=== PATIENT | female | born 1965 | race Caucasian/White ===

== ENCOUNTER 2024-01-04 06:53 | Inpatient (IN) | payer MEDICARE, MEDICAID, SELFPAY ==
[2024-01-04] VITALS (14 sets, daily range): BP systolic 75–139; BP diastolic 48–64; PULSE 68–80; RESP 15–23; TEMP 35.9–36.4; O2SAT 89–98; BMI 38.0; BMI 36.8
--- NOTE | 2024-01-04 07:41 | XR_ITS ---
FINAL REPORT CLINICAL HISTORY: SOB COMPARISON: 01/04/2024 FINDINGS: The heart and mediastinal structures are stable. There has been interval improvement in the pulmonary opacities, likely secondary to improving pulmonary edema. There is no pneumothorax. The support devices are stable in position. No acute osseous abnormality is identified. IMPRESSION: Interval improvement in the persistent bilateral pulmonary opacities, likely secondary to improving pulmonary edema. Reviewed, Interpreted and Dictated by Faustino Barrow III, MD Transcribed by Kenzie Malcolm Authenticated and [facility]
--- NOTE | 2024-01-04 07:57 | PC.NURSE ---
notified of pt's hypotension.
[2024-01-04 08:14] LABS: Basophils # 0.1 K/mm3 (0-0.2); Basophils % 0.7 % (0.1-2.0); Eosinophils # 0.2 K/mm3 (0.0-0.4); Eosinophils % 1.1 % (0.1-12.0); Hematocrit 45.6 % (37.0-47.0); Hemoglobin 15.3 g/dL (12.2-16.2); Lymphocytes # 0.8 K/mm3 (0.7-4.5); Lymphocytes % 5.2 % (10-50); Mean Corpuscular HGB Conc 33.4 g/dL (31.8-35.4); Mean Corpuscular Hemoglobin 36.9 pg (27.0-31.2); Mean Corpuscular Volume 110.4 fl (81-99); Mean Platelet Volume 9.1 fl (7.4-10.4); Monocytes # 0.4 K/mm3 (0.1-1.0); Monocytes % 2.4 % (1.7-9.3); Neutrophils # 13.6 K/mm3 (1.8-7.8); Neutrophils % 90.6 % (37.0-80.0); Platelet Count 98 K/mm3 (142-424); Red Blood Count 4.13 M/mm3 (4.20-5.40); Red Cell Distribution Width 14.3 % (11.5-17.5)
[2024-01-04 08:18] LABS: MANUAL DIFFERENTIAL MANUAL DIFFERENTIAL (MANUAL DIFF)
[2024-01-04 08:25] LABS: Anion Gap 6.4 mEq/L (5-15); Blood Urea Nitrogen 15 mg/dl (7-17); Calcium 7.8 mg/dl (8.4-10.2); Carbon Dioxide 32 mmol/L (22.0-30.0); Chloride 99 mmol/L (98-107); Creatinine Clearance Estimated 118 mL/min (50-200); Estimated Glomerular Filt Rate 73 ml/min (>60); GFR (African American) 89 ML/MIN (>60); PTT Heparin (inpatient only) 53.6 Seconds (23.6-34.0); Potassium 4.4 mmoL/L (3.5-5.1); Sodium 133 mmol/L (136-145)
[2024-01-04] MEDS: LACTATED RINGERS 1000ML 1,000 ML 999 ML IV (08:29)
[2024-01-04 08:36] LABS: Lactic Acid 1.8 mmol/L (0.7-2.1)
[2024-01-04 08:42] LABS: Glucose 447 mg/dl (74-100)
[2024-01-04 09:05] LABS: NT Pro Brain Natriuretic Pep. 2130 pg/mL (0-125)
[2024-01-04 09:15] LABS: Lymphocytes % 7 % (10-50); Macrocytosis 2+; Monocytes % 2 % (2-9); Neutrophils % 91 % (42-76); Platelet Estimate Moderate Decrease; Total Cells Counted 100
[2024-01-04 09:22] LABS: Lipase 130 U/L (23-300)
--- NOTE | 2024-01-04 09:29 | P.CONPHA_ITS ---
Pharmacy Intervention Comments: Confirmed home medications using external fill history and spoke with pharmacist at [facility] ([facility]bbie) and [facility] ([facility]). Of note, she last filled suboxone 8-2mg 2T PO QD #52 tablets on 10/21/23 at [facility] pharmacy; confirmed with [facility] report.
--- NOTE | 2024-01-04 09:29 | HMH.PHAINT1 ---
Pharmacy Intervention Comments: Confirmed home medications using external fill history and spoke with pharmacist at [facility] (Abbie) and [facility] ([place]). Of note, she last filled suboxone 8-2mg 2T PO QD #52 tablets on 10/21/23 at [facility] pharmacy; confirmed with [facility] report.
--- NOTE | 2024-01-04 09:53 | P.HP_ITS ---
History of Present Illness *Admission Date: 01/04/24 *Reason for visit:: SOB, *History of present illness: Patient is a 58-year-old female with past medical history of diabetes mellitus, active tobacco use, hypertension who presented to hospital due to chest pain/shortness of breath. Patient was found to have elevated troponin, patient was referred to H&H for possible NSTEMI. Patient at time of my evaluation denies active chest pain, she appears to be in shortness of breath. She was started on IV heparin, BiPAP and was sent to the [facility] for further evaluation. Patient's family/son is also at the bedside. Patient denies fever chills nausea vomiting diarrhea constipation. She denies being on diabetic medications. [facility] Disclaimer: The information contained in this section may have been updated after the patient was seen, as this information can be updated by other users. Medical History (Updated 01/04/24 @ 12:55 by Chava Quinn MD) Pneumonia Hypertension Hyperlipidemia Diabetes Smoker Laryngeal carcinoma COPD (chronic obstructive pulmonary disease) Family History (Updated 01/04/24 @ 11:32 by Tahira Barillas RN) Other Family history of cancer Heart disease Social History (Updated 01/04/24 @ 10:38 by Kathya Vogel APRN) Smoking Status: Current every day smoker alcohol intake: never current occupational status: employed Travel in the last 8 weeks: Inside the [place] Review of Systems Review of Systems Review of systems (narrative): as per yourI Meds Home Medications and Allergies Home Medications Medication Instructions Recorded Confirmed Type amoxicillin 250 mg/5 mL oral 500 mg PO TID 01/04/24 01/04/24 History suspension lisinopril 40 mg tablet 40 mg PO DAILY 01/04/24 01/04/24 History promethazine-DM 6.25 mg-15 mg/5 mL 5 ml PO Q6 PRN Cough 01/04/24 01/04/24 History oral syrup buprenorphine 8 mg-naloxone 2 mg 2 tab sublingual DAILY 01/05/24 01/05/24 History sublingual tablet New Prescriptions to Start Prescriptions: Allergies Allergy/AdvReac Type Severity Reaction Status Date / Time No Known Allergies Allergy Verified 01/04/24 08:09 Exam Data for Last 24 hours Vital signs and Labs for Last 24 Hours: Temp FiO2 97.5 F L 100 01/04/24 08:00 01/04/24 07:05 Laboratory Results - last 24 hr 01/04/24 08:00: WBC 15.0 H, RBC 4.13 L, Hgb 15.3, Hct 45.6, MCV 110.4 H, MCH 36.9 H, MCHC 33.4, RDW 14.3, Plt Count 98 L, MPV 9.1, Neut % (Auto) 90.6 H, Lymph % (Auto) 5.2 L, Roberts % (Auto) 2.4, Eos % (Auto) 1.1, Baso % (Auto) 0.7, Neut # (Auto) 13.6 H, Lymph # (Auto) 0.8, Roberts # (Auto) 0.4, Eos # (Auto) 0.2, Baso # (Auto) 0.1, Total Counted 100, Neutrophils % (Manual) 91 H, Lymphocytes % (Manual) 7 L, Monocytes % (Manual) 2, Platelet Estimate Moderate decrease, Macrocytosis 2+, APTT 53.6 H*, Sodium 133 L, Potassium 4.4, Chloride 99, Carbon Dioxide 32 H, Anion Gap 6.4, BUN 15, Creatinine 0.80, Estimated Creat Clear 118, Estimated GFR 73, Est GFR ( Amer) 89, Glucose 447 H*, Lactate 1.8, Calcium 7.8 L, NT-Pro-B Natriuret Pep 2130 H, Lipase 130 I & O for Last 24 hours: Intake & Output 01/01/24 01/02/24 01/03/24 01/04/24 22:59 23:59 23:59 23:59 Output Total 325 / 325 Balance -325 / -325 Weight 100.329 kg Constitutional Constitutional: no acute distress *Routine HEENT Exam Head: Present normocephalic Eye: Present EOMI and PERRL ENT: Present mucous membranes moist *Routine Neck Exam Neck: Present supple; Absent lymphadenopathy *Routine Respiratory Exam Respiratory: Present respiratory distress, distant breath sounds and diminished air movement *Routine Cardiovascular Exam Cardiovascular: Present RRR *Routine Abdominal Exam Abdominal: Present soft and normoactive bowel sounds; Absent tenderness *Routine Rectal Exam Rectal:: deferred *Routine Genitalia Exam Genitalia:: deferred *Routine Extremities Exam Extremities: Absent cyanosis, clubbing or edema *Routine Skin Exam Skin: Present warm; Absent rash *Routine Neurological Exam Neurological: Present alert and oriented X3 Assessment and Plan *Assessment and plan (1) Pneumonia: Status: Acute Category: Medical Code(s): J18.9 - Pneumonia, unspecified organism (2) Acute hypoxic respiratory failure: Status: Acute Category: Medical Code(s): J96.01 - Acute respiratory failure with hypoxia (3) Elevated d-dimer: Status: Acute Category: Medical Code(s): R79.89 - Other specified abnormal findings of blood chemistry (4) Elevated troponin: Status: Acute Category: Medical Code(s): R79.89 - Other specified abnormal findings of blood chemistry Plan Patient is a 58-year-old female with past medical history of diabetes mellitus, active tobacco use, hypertension who presented to hospital due to chest pain/shortness of breath. Patient was found to have elevated troponin, patient was referred to H&H for possible NSTEMI. Patient at time of my evaluation denies active chest pain, she appears to be in shortness of breath. She was started on IV heparin, BiPAP and was sent to the [facility] for further evaluation. Patient's family/son is also at the bedside. Patient denies fever chills nausea vomiting diarrhea constipation. She denies being on diabetic medications. Assessment and plan Acute hypoxic respiratory failure satting less than 90% on room air Suspect acute CHF Elevated troponin at previous facility, suspect NSTEMI leukocytosis Continue BiPAP, check VBG Order echocardiogram Monitor on cardiac psychotherapist counselor troponin Check procalcitonin Check chest x-ray Consult cardiology, consult pulmonary-appreciate recommendations start 40 IV twice daily Lasix, patient denies being on Lasix at home Start empirical antibiotics with azithromycin, Rocephin Continue IV heparin check Rapid flu and COVID19 Hyperglycemia due to uncontrolled diabetes mellitus Restart insulin sliding scale Long-acting insulin Check A1c Tobacco use - nicotine patch Hypertension-patient currently appears to be hypotensive Monitor DVT prophylaxis-continue IV heparin
--- NOTE | 2024-01-04 09:57 | CA_ITS ---
APPROVED REPORT EXAM: Comprehensive 2D, Doppler, and color-flow Echocardiogram Counseling Psychologist: Liset Bansal, RCS, RVS Ht: 5 ft 4 in Wt: 221lbs BSA: 2.04 BP: 89/57 mmHg Indications: CHF, SOA, Bipap, NSTEMI, Hypotension, Smoker 2D Dimensions IVSd 1.04 cm LVEF (Visual) 72.50 % PWd 1.13 cm LVEF (Hernandez's) 75.50 % LVDd 5.25 cm LV Volume 55.60 mL LVDs 3.05 cm LV Volume Index 27.432452 mL/m2 F: 29 - 61 Aortic Root 2.80 cm LA Volume 64.70 mL Left Atrium 3.87 cm LA Volume Index 31.046242 mL/m2 (M/F) 16-34 RVID Base (AP4) 2.65 cm (M/F) 2.5-4.1 EF AP4 77.60 % LVOT 1.80 cm (M/F) 1.5-2.5 EF AP2 68.3 % EF BP 75.5 % GL Strain -16.4 % M-Mode Dimensions LVDd 5.25 cm (3.5-5.7) Ao Diam 3.20 cm (2.0-3.7) LVDs 3.05 cm (3.5-5.7) IVSd 1.04 cm (0.6-1.1) PWd 1.13 cm (0.6-1.1) EPSs 0.38 cm FS 41.90% TAPSE 1.76 (<1.7) LV Diastology E Decel Time 233 (160-240 msec) E/A Ratio 1.85 MED E' 5.3 (>= 7 cm/sec) MED A' 6.70 cm/s E'/MED E' Ratio 14.49 (<= 14) LAT E' 4.9 (>= 10 cm/sec) LAT A' 5.20 cm/s E/LAT E' Ratio 15.67 (<= 14) Aortic Valve LVOT Max 102.0 (70-110 cm/s) ALDO Index 0.93 cm2/m2 LVOT VTI 20.42 cm AoV Peak Graham. 127.0 (50-130 cm/s) AO Peak GR. 6.80 mmHg AO Mean GR. 3.60 (<5 mmHg) AO VTI 27.3 (18-25 cm) ALDO (VTI) 1.90 (2.5-4.5 cm2) Mitral Valve MV E Max Graham. 77.0 (40-130 cm/s) MV A Velocity 41.0 (40-130 cm/s) E/A Ratio 1.85 MV Decel. Time 233 (160-240 ms) Tricuspid Valve TR P. Velocity 251.00 cm/s RAP Estimate 10.00 mmHg RVSP 35.20 mmHg Left Ventricle The left ventricle is normal size. The left ventricular systolic function is normal. The left ventricular ejection fraction is within the normal range. There is increased LV wall thickness. There is normal LV segmental wall motion. The left ventricular diastolic function is normal. LVEF is 60%. Right Ventricle Right ventricle is moderately dilated. Right ventricle is mildly hypokinetic. Atria The left atrium size is normal. The right atrium size is normal. There is no Doppler evidence of interatrial shunt. Aortic Valve The aortic valve is mildly thickened. There is no aortic valvular stenosis. No aortic regurgitation is present. Mitral Valve Mild mitral annular calcification. The mitral valve leaflets are mildly thickened. No evidence of mitral valve stenosis. Mild mitral regurgitation. Tricuspid Valve The tricuspid valve leaflets are thin and pliable. Mild to moderate tricuspid regurgitation. RVSP is 25-30 mmHg. Pulmonic Valve The pulmonary valve is normal in structure. Trace pulmonic regurgitation. Great Vessels The aortic root is not well-visualized. IVC is normal in size and collapses >50% with inspiration. Pericardium There is no pericardial effusion. Other Information Study Quality: Technically Difficult Conclusion Technically difficult study due to poor acoustic windows. Normal LV systolic function. Moderate RV dilation with mild reduction in RV function. Mild MR. Mild to moderate TR. RVSP 25-30 mmHg. Electronically signed by : Shavon Ferrell MD 01/05/2024 21:30:53
--- NOTE | 2024-01-04 10:07 | P.CONS_ITS ---
History of Present Illness History of present illness: Ms. Richmond is a 66-year-old female greater than [id number] smoking history and carries a diagnosis of COPD baseline using albuterol/nebulizers presented to the ER for worsening chest pain and shortness of breath and pulmonary was called for further evaluation and management. [facility] Disclaimer: The information contained in this section may have been updated after the patient was seen, as this information can be updated by other users. Medical History (Updated 01/04/24 @ 12:55 by Chava Quinn MD) Pneumonia Hypertension Hyperlipidemia Diabetes Smoker Laryngeal carcinoma COPD (chronic obstructive pulmonary disease) Family History (Updated 01/04/24 @ 11:32 by Tahira Barillas RN) Other Family history of cancer Heart disease Social History (Updated 01/04/24 @ 10:38 by Kathya Vogel APRN) Smoking Status: Current every day smoker alcohol intake: never current occupational status: employed Travel in the last 8 weeks: Inside the [place] Review of Systems Constitutional Constitutional: Reports anorexia, Reports body ache(s) and Reports fatigue Eyes Eyes: Denies eye discharge, Denies dry eyes, Denies irritation and Denies itchy eyes ENT Ears, Nose, Mouth, and Throat: Denies epistaxis, Denies facial pain, Denies lip swelling and Denies throat swelling *Cardiovascular Cardiovascular: Reports chest pain at rest, Reports dyspnea, Reports dyspnea on exertion, Reports leg edema and Reports orthopnea *Respiratory Respiratory: Reports chest congestion, Reports cough, Reports dyspnea, Reports dyspnea on exertion, Reports excessive phlegm production, Denies hemoptysis, Denies pain on inspiration, Denies pain with cough and Reports wheezing *Gastrointestinal Gastrointestinal: Denies abdominal pain, Denies belching and Denies cramping *Musculoskeletal Musculoskeletal: Reports back pain, Reports myalgias and Reports other (No small joint swelling or Pain) Psychiatric Psychiatric: Denies homicidal ideation and Denies suicidal ideation Endocrine Endocrine: Reports fatigue and Denies heat intolerance Hematologic/Lymphatic Hematologic/Lymphatic: Denies easy bleeding and Denies lymphadenopathy Allergic/Immunologic Allergic/Immunologic: Denies itchy eyes, Denies lip swelling, Denies throat swelling and Reports wheezing Pulmonology Exam Inpatient Vital signs and Labs for Last 24 Hours: Temp FiO2 97.5 F L 100 01/04/24 08:00 01/04/24 07:05 Laboratory Results - last 24 hr 01/04/24 08:00: WBC 15.0 H, RBC 4.13 L, Hgb 15.3, Hct 45.6, MCV 110.4 H, MCH 36.9 H, MCHC 33.4, RDW 14.3, Plt Count 98 L, MPV 9.1, Neut % (Auto) 90.6 H, L ymph % (Auto) 5.2 L, Cocke % (Auto) 2.4, Eos % (Auto) 1.1, Baso % (Auto) 0.7, N eut # (Auto) 13.6 H, Lymph # (Auto) 0.8, Cocke # (Auto) 0.4, Eos # (Auto) 0.2, Baso # (Auto) 0.1, Total Counted 100, Neutrophils % (Manual) 91 H, Lymphocytes % (Manual) 7 L, Monocytes % (Manual) 2, Platelet Estimate Moderate decrease, Macrocytosis 2+, APTT 53.6 H*, Sodium 133 L, Potassium 4.4, Chloride 99, Carbon Dioxide 32 H, Anion Gap 6.4, BUN 15, Creatinine 0.80, Estimated Creat Clear 118, Estimated GFR 73, Est GFR ( Amer) 89, Glucose 447 H*, Lactate 1.8, C alcium 7.8 L, NT-Pro-B Natriuret Pep 2130 H, Lipase 130 I & O for Labs for Last 24 Hours: Intake & Output 01/01/24 01/02/24 01/03/24 01/04/24 22:59 23:59 23:59 23:59 Output Total 325 / 325 Balance -325 / -325 Weight 221 lb 3 oz Constitutional: Present moderate distress Head: Present normocephalic and atraumatic ENT: Present normal exam, normal oropharynx and mucous membranes moist Neck: Present normal inspection and full ROM Respiratory: Present respiratory distress and wheezes; Absent able to speak in complete sentences Cardiac: Present S1/S2, Tachycardia and radial pulses present GI: Present soft and distention; Absent tenderness or guarding Rectal (female): Present deferred (female): Present deferred Skin: Present intact; Absent cyanosis or jaundice Neuro: Present alert and awake; Absent oriented x 3 Extremities: Present normal inspection; Absent clubbing or cyanosis Psychiatric: Present normal affect and cooperative Meds Home Medications and Allergies Home Medications Medication Instructions Recorded Confirmed Type amoxicillin 250 mg/5 mL oral 500 mg PO TID 01/04/24 01/04/24 History suspension lisinopril 40 mg tablet 40 mg PO DAILY 01/04/24 01/04/24 History promethazine-DM 6.25 mg-15 mg/5 mL 5 ml PO Q6 PRN Cough 01/04/24 01/04/24 History oral syrup New Prescriptions to Start Prescriptions: Allergies Allergy/AdvReac Type Severity Reaction Status Date / Time No Known Allergies Allergy Verified 01/04/24 08:09 Results Laboratory Findings 01/04/24 08:00 01/04/24 08:00 Abnormal lab findings: Abnormal Labs 01/04/24 08:00 WBC 15.0 H RBC 4.13 L MCV 110.4 H MCH 36.9 H Plt Count 98 L Neut % (Auto) 90.6 H Lymph % (Auto) 5.2 L Neut # (Auto) 13.6 H Neutrophils % (Manual) 91 H Lymphocytes % (Manual) 7 L APTT 53.6 H* Sodium 133 L Carbon Dioxide 32 H Glucose 447 H* Calcium 7.8 L NT-Pro-B Natriuret Pep 2130 H Assessment and Plan *Assessment and plan (1) Acute hypoxic respiratory failure: Status: Acute Category: Medical Code(s): J96.01 - Acute respiratory failure with hypoxia (2) Pneumonia: Status: Acute Category: Medical Code(s): J18.9 - Pneumonia, unspecified organism Plan Ms. Richmond is a 66-year-old female greater than [id number] smoking history and carries a diagnosis of COPD baseline using albuterol/nebulizers presented to the ER for worsening chest pain and shortness of breath and pulmonary was called for further evaluation and management. Chest x-ray upon admission bilateral lower lobe airspace disease, left greater than right. Interstitial thickening is also noted, likely a combination of airspace disease and volume overload. Neutrophilic leukocytosis upon admission. Serum ammonia also elevated upon admission. Patient admission was initiated on BiPAP therapy. No blood gas available. On initial examination patient is awake responding to verbal commands. Weaned from BiPAP to high flow nasal cannula. Wheezing on auscutation Plan: -Continue high flow nasal cannula oxygen supplementation to maintain O2 saturation goal of 90 to 95%. on 30L , 60%. F/u VBG -Initiate levofloxacin 750 mg daily pending culture results -Duo Q6 and pulmicort Q12 scheduled -Volume optimization as per primary team and cardiology.
[2024-01-04 10:18] LABS: Procalcitonin 0.514 ng/mL (0.0-2.0)
--- NOTE | 2024-01-04 10:20 | CT_ITS ---
FINAL REPORT TECHNIQUE: Postcontrast axial images of the chest were performed in a CTA protocol. This study was performed with techniques to keep radiation doses as low as reasonably achievable, (ALARA). Individualized dose reduction technique using automated exposure control or adjustment of mA and/or kV according to the patient's size were employed. CLINICAL HISTORY: soa FINDINGS: The heart is normal in size. No adenopathy is identified. No pleural or pericardial effusion is identified. The thoracic aorta is normal in caliber with no focal aneurysm or dissection identified. There is no filling defect to suggest pulmonary embolism. There is bilateral lower lobe consolidation versus atelectasis. Alveolar opacities are seen in the left upper lobe worrisome for pneumonia. Limited imaging of the upper abdomen demonstrates lobular contour to the liver consistent with cirrhosis. There is partially imaged splenomegaly and a small amount of ascites. There are left upper quadrant venous collaterals noted. IMPRESSION: No evidence for PE on this exam. Bilateral lower lobe consolidation and alveolar opacities worrisome for pneumonia. Cirrhosis with portal hypertension. Reviewed, Interpreted and Dictated by Faustino Barrow III, MD Transcribed by Dianne Perez Authenticated and [facility]
--- NOTE | 2024-01-04 10:21 | EXP.CARD.CON ---
History of Present Illness History of Present Illness Consult date: 01/04/24 Requesting physician: Yrn Moreau Consult reason: shortness of breath Chief complaint: soa History of present illness: 58-year-old white female with past medical history of diabetes mellitus, hypertension, current tobacco use and laryngeal cancer 5 years ago presented to [facility] with complaints of sudden onset of shortness of air. Son reports that patient awoke him in the middle of the night with complaints of severe shortness of breath and struggling to breathe. EMS was called and upon their arrival sats were noted to be 55% and patient was escobar. Patient was started on non-rebreather and sats improved to 88%. Son also reports that patient was dx with strep a few days ago and was in bed for a few days for it. Patient had an elevated troponin and positive D-dimer at [facility] and was transferred to this facility for NSTEMI and further evaluation. EKG at [facility] showed normal sinus rhythm at a rate of 89 without acute ischemic changes noted. Upon presentation to [facility] patient is on a heparin drip and BiPAP and complaining of shortness of breath. Labs are as follow: WBC 15, hemoglobin 15.3, sodium 133, potassium 4.4, creatinine 0.8, glucose 447, proBNP 2130. Troponin is pending and EKG is pending. Chest x-ray shows interval improvement in the persistent bilateral pulmonary opacities likely secondary to improving pulmonary edema upon presentation to [facility] patient was given Lasix 40 mg IV. CTA chest is pending. [facility] Disclaimer: The information contained in this section may have been updated after the patient was seen, as this information can be updated by other users. Medical History (Updated 01/04/24 @ 12:55 by Chava Quinn MD) Pneumonia Hypertension Hyperlipidemia Diabetes Smoker Laryngeal carcinoma COPD (chronic obstructive pulmonary disease) Family History (Updated 01/04/24 @ 11:32 by Tahira Barillas RN) Other Family history of cancer Heart disease Social History (Updated 01/04/24 @ 10:38 by Kathya Vogel APRN) Smoking Status: Current every day smoker alcohol intake: never current occupational status: employed Travel in the last 8 weeks: Inside the [place] Review of Systems Review of Systems Review of systems:: pertinent systems reviewed and negative unless documented below *Respiratory Comments: severe soa Exam Data for Last 24 hours Vital signs and Labs for Last 24 Hours: Temp FiO2 97.5 F L 100 01/04/24 08:00 01/04/24 07:05 Laboratory Results - last 24 hr 01/04/24 08:00: WBC 15.0 H, RBC 4.13 L, Hgb 15.3, Hct 45.6, MCV 110.4 H, MCH 36.9 H, MCHC 33.4, RDW 14.3, Plt Count 98 L, MPV 9.1, Neut % (Auto) 90.6 H, Lymph % (Auto) 5.2 L, [place] % (Auto) 2.4, Eos % (Auto) 1.1, Baso % (Auto) 0.7, Neut # (Auto) 13.6 H, Lymph # (Auto) 0.8, [place] # (Auto) 0.4, Eos # (Auto) 0.2, Baso # (Auto) 0.1, Total Counted 100, Neutrophils % (Manual) 91 H, Lymphocytes % (Manual) 7 L, Monocytes % (Manual) 2, Platelet Estimate Moderate decrease, Macrocytosis 2+, APTT 53.6 H*, Sodium 133 L, Potassium 4.4, Chloride 99, Carbon Dioxide 32 H, Anion Gap 6.4, BUN 15, Creatinine 0.80, Estimated Creat Clear 118, Estimated GFR 73, Est GFR ( Amer) 89, Glucose 447 H*, Lactate 1.8, Calcium 7.8 L, NT-Pro-B Natriuret Pep 2130 H, Lipase 130 I & O for Last 24 hours: Intake & Output 01/01/24 01/02/24 01/03/24 01/04/24 22:59 23:59 23:59 23:59 Output Total 325 / 325 Balance -325 / -325 Weight 221 lb 3 oz Constitutional Constitutional: moderate distress, obese and chronically ill appearing *Routine Respiratory Exam Respiratory: Present rhonchi, wheezes and symmetric chest movement *Routine Cardiovascular Exam Cardiovascular: Present RRR, Normal S1 and Normal S2 *Routine Abdominal Exam Abdominal: Present soft and normoactive bowel sounds; Absent tenderness *Routine Extremities Exam Extremities: Present edema, full ROM and normal capillary refill *Routine Skin Exam Skin: Present intact, dry and warm Detailed Neck Exam: Thyroids Thyroid: Absent bruit Meds Home Medications and Allergies Home Medications Medication Instructions Recorded Confirmed Type amoxicillin 250 mg/5 mL oral 500 mg PO TID 01/04/24 01/04/24 History suspension lisinopril 40 mg tablet 40 mg PO DAILY 01/04/24 01/04/24 History promethazine-DM 6.25 mg-15 mg/5 mL 5 ml PO Q6 PRN Cough 01/04/24 01/04/24 History oral syrup New Prescriptions to Start Prescriptions: Allergies Allergy/AdvReac Type Severity Reaction Status Date / Time No Known Allergies Allergy Verified 01/04/24 08:09 Assessment and Plan *Assessment and plan (1) Elevated troponin: Status: Acute Category: Medical Code(s): R79.89 - Other specified abnormal findings of blood chemistry (2) Elevated d-dimer: Status: Acute Category: Medical Code(s): R79.89 - Other specified abnormal findings of blood chemistry (3) Acute hypoxic respiratory failure: Status: Acute Category: Medical Code(s): J96.01 - Acute respiratory failure with hypoxia Plan NSTEMi -Elevated trop at [facility], [facility] trop here is 1.05. -EKG is negative for acute ischemic changes -Has been on hep drip. Will change to lovenox -No planned intervention at this time due to inability to lay flat secondary to hypoxic respiratory failure. -Patient was loaded with aspirin at [facility]. Continue aspirin 81 mg daily. start atorvastatin 40mg daily. Will start bb once bp has improved. -Will load patient with Plavix 300 mg p.o. x 1 and then 75 mg p.o. daily after. Acute hypoxic respiratory failure Bilateral lower lobe consolidation concerning for pneumonia Elevated D-dimer -Originally requiring BiPAP, now on Vapotherm after IV diuretics x 1 -CTA chest negative for PE with bilateral lower lobe consolidation and alveolar opacities worrisome for pneumonia. -Recently dx with strep -Patient diuresed with Lasix 40 mg IV x 1. Continue to monitor I's and O's -Echo shows normal EF, moderately dilated right ventricle, moderate MR/TR. -Will defer treatment of pneumonia to primary and pulmonary services Tobacco use -Smoking cessation advised Hypertension -Currently hypotensive after diuretics, continue to monitor Diabetes mellitus Hyperglycemia -Defer to primary service CV summary 01/04/2024: Unable to take patient to [facility] today due to respiratory status. CTA chest worrisome for pneumonia. Pulmonology is following. Will change heparin drip to lovenox. Can D/C lasix. Will load with Plavix. No planned intervention at this time until respiratory status improves.
--- NOTE | 2024-01-04 11:08 | HMH.ITSTN ---
Patient unable to come down for CT PE study at this time. Nurse was not able to leave floor at this time. Patient is on heparin drip which has to be monitored. Nurse Tahira will call us and let us know when she and the patient are ready to come to radiology for CT scan.
[2024-01-04 12:13] LABS: Coronavirus 19, PCR Not Detected (NotDetected); Influenza A, PCR Not Detected (NotDetected); Influenza B, PCR Not Detected (NotDetected)
--- NOTE | 2024-01-04 12:20 | ECG_ITS ---
APPROVED REPORT Exam: Resting ECG HR:76 bpm ECG Measurements Heart Rate 76 AXES CO 132 P -1 QRSd 96 QRS 41 QT 410 T 52 QTc 441 Conclusion SINUS RHYTHM NORMAL ECG Electronically signed by : ONEAL MARQUEZ, 01/05/2024 06:38:08
[2024-01-04] MEDS: HEPARIN SODIUM,PORCINE/D5W 500 ML 20 UNIT IV (12:25)
[2024-01-04 12:29] LABS: VBG Base Excess 1.9 mmol/L (-2.4-2.3); VBG Oxygen Saturation 89.7 % (50-70); VBG PCO2 46.2 mmol/L (35-51); VBG PH 7.38 mmol/L (7.31-7.41); VBG PO2 55.9 mmol/L (28-40); VBG Total CO2 28.4 mmol/L (23-27)
[2024-01-04 12:33] LABS: Microscopic, Urine URINE MICROSCOPIC (MICROSCOPIC)
[2024-01-04 12:33] LABS: Ammonia 62 umol/L (9-30)
[2024-01-04 12:35] LABS: Appearance,Urine CLEAR (Clear); Bilirubin,Urine Negative (Negative); Blood, Urine 3+ (Negative); Color,Urine YELLOW (Yellow); Glucose,Urine (UA) 2+ (Negative); Ketones,Urine Negative (Negative); Leukocyte Esterase,Urine Negative (Negative); Nitrate,Urine Negative (Negative); PH,Urine 6.5 (5.0-8.5); Protein,Urine 1+ (Negative)
[2024-01-04 12:45] LABS: POC Glucose,Bedside 429 (70-110)
[2024-01-04] MEDS: humaLOG 100 UNITS/ML 3ML VIAL (SSI) SQ ×3 (12:49→20:51)
[2024-01-04] MEDS: IOPAMIDOL-370 (76%);100ML BOTTLE 70 ML IV (13:37)
[2024-01-04] MEDS: 0.9 % SODIUM CHLORIDE 50 ML VIAL IV (13:37)
[2024-01-04] MEDS: NICOTINE 7MG/24HRS PATCH 7 MG TD (13:43)
[2024-01-04] MEDS: LEVOFLOXACIN/D5W 750 MG/150 ML 750 MG/150 ML PIGGYBACK 100 MG IV (13:43)
[2024-01-04 13:45] LABS: Troponin I 1.05 ng/ml (0.00-0.034)
[2024-01-04 14:52] LABS: Bacteria,Urine Trace /lpf; Mucus,Urine Trace /lpf
--- NOTE | 2024-01-04 15:49 | P.CONPHA_ITS ---
[facility] Pharmacy Heparin Dosing Demographic Data Admission date:: 01/04/24 Date: 01/04/24 Time: 08:00 Allergies Allergy/AdvReac Type Severity Reaction Status Date / Time No Known Allergies Allergy Verified 01/04/24 08:09 Height: 1.65 m Weight: 100.329 kg Indication Medication therapy:: Heparin Current Indications:: NSTEMI - LOW DOSE PROTOCOL Current Active Problems (Updated 01/04/24 @ 12:55 by Chava Quinn MD) Pneumonia (Acute) Acute hypoxic respiratory failure (Acute) Elevated d-dimer (Acute) Elevated troponin (Acute) CVA?: No Bleeding problem?: No Kidney disease?: No MT?: Yes Desired PTT range:: 50-75 seconds Comments:: BASELINE PTT: 53.6 SECONDS, PATIENT WSA ON HEPARIN DRIP FROM [facility] Labs Anticoagulation Lab Results:: 01/04/24 08:00 Hgb 15.3 Hct 45.6 Plt Count 98 L Monitoring Dose Monitor 1: Date: 01/04/24 Time: 08:00 PTT Result:: 53.6 SECONDS Infusion Rate:: CONTINUE CURRENT RATE OF 1000 UNITS/HOUR = 20 ML/HOUR Dose Monitor 2: Date: 01/04/24 Time: 12:00 PTT Result:: 51.0 SECONDS Infusion Rate:: CONTINUE CURRENT HEPARIN DRIP RATE OF 1000 UNITS/HOUR = 20 ML/HOUR Core Measures Is INR > or = 2 at discharge?: No Most Recent Labs:: Laboratory Results - last 24 hr 01/04/24 08:00: WBC 15.0 H, RBC 4.13 L, Hgb 15.3, Hct 45.6, MCV 110.4 H, MCH 36.9 H, MCHC 33.4, RDW 14.3, Plt Count 98 L, MPV 9.1, Neut % (Auto) 90.6 H, Lymph % (Auto) 5.2 L, [place] % (Auto) 2.4, Eos % (Auto) 1.1, Baso % (Auto) 0.7, [place] # (Auto) 13.6 H, Lymph # (Auto) 0.8, [place] # (Auto) 0.4, Eos # (Auto) 0.2, Baso # (Auto) 0.1, Total Counted 100, Neutrophils % (Manual) 91 H, Lymphocytes % (Manual) 7 L, Monocytes % (Manual) 2, Platelet Estimate Moderate decrease, Macrocytosis 2+, APTT 53.6 H*, Sodium 133 L, Potassium 4.4, Chloride 99, Carbon Dioxide 32 H, Anion Gap 6.4, BUN 15, Creatinine 0.80, Estimated Creat Clear 118, Estimated GFR 73, Est GFR ( Amer) 89, Glucose 447 H*, Hemoglobin A1c 7.0 H, Lactate 1.8, Calcium 7.8 L, NT-Pro-B Natriuret Pep 2130 H, Lipase 130, Procalcitonin 0.514 01/04/24 11:53: Urine Color Yellow, Urine Appearance Clear, Urine pH 6.5, Ur Specific [place] 1.020, Urine Protein 1+, Urine Glucose (UA) 2+, Urine Ketones Negative, Urine Blood 3+, Urine Nitrate Negative, Urine Bilirubin Negative, Urine Urobilinogen 4.0, Ur Leukocyte Esterase Negative, Urine RBC 3-5, Urine WBC 3-5, Ur Squamous Epith Cells 3-5, Urine Bacteria Trace, Urine Mucus Trace, SA RS-CoV-2 (PCR) Not detected, Influenza A Untype (PCR) Not detected, Influenza Type B (PCR) Not detected 01/04/24 12:00: APTT 51.0 H*, Ammonia 62 H, Troponin I 1.05 H 01/04/24 12:17: POC Glucose 429 H* 01/04/24 12:26: VBG pH 7.38, VBG pCO2 46.2, VBG pO2 55.9 H, VBG HCO3 27.0, VBG Total CO2 28.4 H, VBG O2 Saturation 89.7 H, VBG Base Excess 1.9 If INR was < than 2.0 why was therapy stopped?: CHANGED TO LOVENOX Were Heparin and Warfarin started on the same day?: No If not, why?: CHANGED TO LOVENOX
[2024-01-04] MEDS: ENOXAPARIN 100MG/ML SYRINGE 100 MG SQ (17:38)
[2024-01-04] MEDS: CLOPIDOGREL 300MG TABLET 300 MG PO (17:39)
[2024-01-04 17:46] LABS: POC Glucose,Bedside 381 (70-110)
--- NOTE | 2024-01-04 17:55 | PC.NURSE ---
Pt is A&Ox4. Sitting up in bed. She is currently on Vapotherm 30L 60% with sats in mid 90s. BP remains soft. Currently 95/53. Other VSS. Pt placed on diabetic diet this evening. Call light within reach. Family remains at bedside.
[2024-01-04] MEDS: BUDESONIDE 0.5MG/2ML NEB 0.5 MG IH (18:51)
[2024-01-04] MEDS: IPRATROPIUM/ALBUTEROL 3 ML NEB IH ×2 (18:51→23:36)
[2024-01-04] MEDS: ATORVASTATIN 40MG TABLET 40 MG PO (20:44)
[2024-01-04] MEDS: INSULIN GLARGINE 100 UNITS/ML 10ML VIAL 10 UNIT SQ (20:51)
[2024-01-04 20:53] LABS: POC Glucose,Bedside 296 (70-110)
[2024-01-04] MEDS: 0.9 % SODIUM CHLORIDE 500 ML IV (21:14)
[2024-01-05] VITALS (21 sets, daily range): BP systolic 80–111; BP diastolic 51–84; PULSE 62–90; RESP 15–22; TEMP 36.3–36.9; O2SAT 90–95; BMI 37.0
[2024-01-05] MEDS: 0.9 % SODIUM CHLORIDE 500 ML IV (00:15)
[2024-01-05] MEDS: MIDODRINE HCL 5 MG TABLET PO (01:15)
[2024-01-05] MEDS: humaLOG 100 UNITS/ML 3ML VIAL (SSI) SQ ×4 (05:47→21:10)
[2024-01-05] MEDS: ENOXAPARIN 100MG/ML SYRINGE 100 MG SQ ×2 (05:47→17:08)
[2024-01-05 05:52] LABS: POC Glucose,Bedside 185 (70-110)
--- NOTE | 2024-01-05 06:06 | PC.NURSE ---
Pt a/o x4. Pt bp soft this shift requiring 500ml NS bolus x2 and pt also received 5mg Midodrine PO per E Molina. Pt current BP 86/53, MAP 64. Pt continues to require o2 via vapotherm and was titrated up to 30L / 60% to maintain o2 sat >90%. Pt lung sounds are clear and diminished. Rivers in place draining clear yellow urine. Pt has not voiced any complaints to staff throughout shift. Call light within reach.
[2024-01-05] MEDS: BUDESONIDE 0.5MG/2ML NEB 0.5 MG IH ×2 (06:35→18:51)
[2024-01-05] MEDS: IPRATROPIUM/ALBUTEROL 3 ML NEB IH ×4 (06:35→23:41)
[2024-01-05 07:43] LABS: Magnesium 2.1 mg/dl (1.6-2.3)
[2024-01-05 08:50] LABS: Basophils # 0.1 K/mm3 (0-0.2); Basophils % 0.7 % (0.1-2.0); Eosinophils # 0.2 K/mm3 (0.0-0.4); Eosinophils % 1.1 % (0.1-12.0); Hematocrit 41.8 % (37.0-47.0); Hemoglobin 13.8 g/dL (12.2-16.2); Lymphocytes # 1.1 K/mm3 (0.7-4.5); Lymphocytes % 8.2 % (10-50); Mean Corpuscular Volume 109.2 fl (81-99); Mean Platelet Volume 9.3 fl (7.4-10.4); Monocytes # 0.4 K/mm3 (0.1-1.0); Neutrophils # 11.5 K/mm3 (1.8-7.8); Platelet Count 113 K/mm3 (142-424); Red Blood Count 3.83 M/mm3 (4.20-5.40); Red Cell Distribution Width 14.6 % (11.5-17.5); White Blood Count 13.3 K/mm3 (4.8-10.8)
[2024-01-05 08:52] LABS: MANUAL DIFFERENTIAL MANUAL DIFFERENTIAL (MANUAL DIFF)
[2024-01-05] MEDS: CLOPIDOGREL 75MG TAB 75 MG PO (09:08)
[2024-01-05] MEDS: ASPIRIN EC 81MG TABLET 81 MG PO (09:08)
[2024-01-05] MEDS: BUPRENORPHINE/NALOXONE 8MG/2MG ODT 2 EACH SL (09:24)
--- NOTE | 2024-01-05 09:39 | P.PN_ITS ---
Subjective *Date: 01/05/24 *Time: 12:10 Interval history: No acute respiratory events overnight. Patient admits no significant worsening/improving respiratory symptoms. Pulmonology Exam Inpatient Vital signs and Labs for Last 24 Hours: Temp Pulse Resp BP Pulse Ox O2 Del Method O2 Flow Rate 97.8 F 63 17 86/53 L 90 L Vapotherm 30 01/05/24 07:37 01/05/24 06:36 01/05/24 06:00 01/05/24 06:00 01/05/24 06:36 01/05/24 07:43 01/05/24 07:43 FiO2 60 01/05/24 07:43 Laboratory Results - last 24 hr 01/04/24 08:00: Hemoglobin A1c 7.0 H, Procalcitonin 0.514 01/04/24 11:53: Urine Color Yellow, Urine Appearance Clear, Urine pH 6.5, Ur Specific [place] 1.020, Urine Protein 1+, Urine Glucose (UA) 2+, Urine Ketones Negative, Urine Blood 3+, Urine Nitrate Negative, Urine Bilirubin Negative, Urine Urobilinogen 4.0, Ur Leukocyte Esterase Negative, Urine RBC 3-5, Urine WBC 3-5, Ur Squamous Epith Cells 3-5, Urine Bacteria Trace, Urine Mucus Trace, SARS-CoV-2 (PCR) Not detected, Influenza A Untype (PCR) Not detected, Influenza Type B (PCR) Not detected 01/04/24 12:00: APTT 51.0 H*, Ammonia 62 H, Troponin I 1.05 H 01/04/24 12:17: POC Glucose 429 H* 01/04/24 12:26: VBG pH 7.38, VBG pCO2 46.2, VBG pO2 55.9 H, VBG HCO3 27.0, VBG Total CO2 28.4 H, VBG O2 Saturation 89.7 H, VBG Base Excess 1.9 01/04/24 17:36: POC Glucose 381 H* 01/04/24 20:44: POC Glucose 296 H 01/05/24 05:45: POC Glucose 185 H 01/05/24 06:52: WBC 13.3 H, RBC 3.83 L, Hgb 13.8, Hct 41.8, MCV 109.2 H, MCH 36.0 H, MCHC 33.0, RDW 14.6, Plt Count 113 L, MPV 9.3, Neut % (Auto) 87.0 H, Lymph % (Auto) 8.2 L, [place] % (Auto) 3.0, Eos % (Auto) 1.1, Baso % (Auto) 0.7, Neut # (Auto) 11.5 H, Lymph # (Auto) 1.1, [place] # (Auto) 0.4, Eos # (Auto) 0.2, Baso # (Auto) 0.1, Magnesium 2.1 I & O for Labs for Last 24 Hours: Intake & Output 01/02/24 01/03/24 01/04/24 01/05/24 23:59 23:59 23:59 23:59 Intake Total 1120 / 1120 860 / 860 Output Total 950 / 950 650 / 650 Balance 170 / 170 210 / 210 Weight 221 lb 3.001 oz 222 lb 12.8 oz Constitutional: Present moderate distress Head: Present normocephalic and atraumatic ENT: Present normal exam, normal oropharynx and mucous membranes moist Neck: Present normal inspection and full ROM Respiratory: Present respiratory distress and wheezes; Absent able to speak in complete sentences Cardiac: Present S1/S2, Tachycardia and radial pulses present GI: Present soft and distention; Absent tenderness or guarding Rectal (female): Present deferred (female): Present deferred Skin: Present intact; Absent cyanosis or jaundice Neuro: Present alert and awake; Absent oriented x 3 Extremities: Present normal inspection; Absent clubbing or cyanosis Psychiatric: Present normal affect and cooperative Assessment and Plan *Assessment and plan (1) Acute hypoxic respiratory failure: Status: Acute Category: Medical Code(s): J96.01 - Acute respiratory failure with hypoxia (2) Pneumonia: Status: Acute Category: Medical Code(s): J18.9 - Pneumonia, unspecified organism Plan Ms. Richmond is a 66-year-old female greater than [id number] smoking history and carries a diagnosis of COPD baseline using albuterol/nebulizers presented to the ER for worsening chest pain and shortness of breath and pulmonary was called for further evaluation and management. Chest x-ray upon admission bilateral lower lobe airspace disease, left greater than right. Interstitial thickening is also noted, likely a combination of airspace disease and volume overload. Neutrophilic leukocytosis upon admission. Serum ammonia also elevated upon admission. Patient admission was initiated on BiPAP therapy. No blood gas available. On initial examination patient is awake responding to verbal commands. Weaned from BiPAP to high flow nasal cannula. Wheezing on auscutation Interval update: CTA personally reviewed, no evidence of pulmonary embolism bilateral lower lobe dense consolidative changes left greater than right. Small effusions also noted. Significant emphysematous changes also noted. Calcified lymphadenopathy noted Afebrile. Improving leukocytosis. Stable oxygen requirements. Will closely monitor. Will hold off on escalating antibiotics at this point of time. Plan: -Incentive spirometry and flutter valve -Continue high flow nasal cannula oxygen supplementation to maintain O2 saturation goal of 90 to 95%. on 30L , 60%. F/u VBG -Continue levofloxacin 750 mg daily pending culture results. Sputum culture with induction today. Follow with nasal MRSA PCR. -DuoNebs Q6 and pulmicort Q12 scheduled # Thank you for involving pulmonary in this patient care. Will continue to follow.
--- NOTE | 2024-01-05 09:39 | XR_ITS ---
FINAL REPORT CLINICAL HISTORY: Hypoxia COMPARISON: 01/04/2024 FINDINGS: A single portable view of the chest was obtained. There is cardiomegaly and pulmonary vascular congestion. The mediastinum is within normal limits. Worsening bibasilar opacities are consistent with worsening pneumonia. The bony thorax is intact. IMPRESSION: Worsening pneumonia. Cardiomegaly and pulmonary vascular congestion. Reviewed, Interpreted and Dictated by Faustino Barrow III, MD Transcribed by Elisabet Turner Authenticated and [facility]
[2024-01-05 09:56] LABS: Eosinophils % 1 % (0-3); Lymphocytes % 9 % (10-50); Monocytes % 1 % (2-9); Neutrophils % 89 % (42-76); Total Cells Counted 100
[2024-01-05 09:57] LABS: Macrocytosis 2+; Platelet Estimate Moderate Decrease
[2024-01-05 10:19] LABS: Procalcitonin 0.404 ng/mL (0.0-2.0)
--- NOTE | 2024-01-05 10:26 | EXP.CARD.PN ---
Subjective Subjective Date: 01/05/24 Time: 08:00 Principal diagnosis: NSTEMI, COPD exacerbation, pneumonia Interval history: Patient doing better today reports shortness of air has improved slightly. Patient remains on Vapotherm. Morning labs reviewed. Patient hypotensive-systolic in the high 80s, however, adequate urine output noted. Patient denies symptoms. Morning chest x-ray pending. Exam Data for Last 24 hours Vital signs and Labs for Last 24 Hours: Temp Pulse Resp BP Pulse Ox O2 Del Method O2 Flow Rate 97.8 F 63 17 86/53 L 90 L Vapotherm 30 01/05/24 07:37 01/05/24 06:36 01/05/24 06:00 01/05/24 06:00 01/05/24 06:36 01/05/24 09:00 01/05/24 07:43 FiO2 60 01/05/24 07:43 Laboratory Results - last 24 hr 01/04/24 08:00: Hemoglobin A1c 7.0 H, Procalcitonin 0.514 01/04/24 11:53: Urine Color Yellow, Urine Appearance Clear, Urine pH 6.5, Ur Specific [place] 1.020, Urine Protein 1+, Urine Glucose (UA) 2+, Urine Ketones Negative, Urine Blood 3+, Urine Nitrate Negative, Urine Bilirubin Negative, Urine Urobilinogen 4.0, Ur Leukocyte Esterase Negative, Urine RBC 3-5, Urine WBC 3-5, Ur Squamous Epith Cells 3-5, Urine Bacteria Trace, Urine Mucus Trace, SARS-CoV-2 (PCR) Not detected, Influenza A Untype (PCR) Not detected, Influenza Type B (PCR) Not detected 01/04/24 12:00: APTT 51.0 H*, Ammonia 62 H, Troponin I 1.05 H 01/04/24 12:17: POC Glucose 429 H* 01/04/24 12:26: VBG pH 7.38, VBG pCO2 46.2, VBG pO2 55.9 H, VBG HCO3 27.0, VBG Total CO2 28.4 H, VBG O2 Saturation 89.7 H, VBG Base Excess 1.9 01/04/24 17:36: POC Glucose 381 H* 01/04/24 20:44: POC Glucose 296 H 01/05/24 05:45: POC Glucose 185 H 01/05/24 06:52: WBC 13.3 H, RBC 3.83 L, Hgb 13.8, Hct 41.8, MCV 109.2 H, MCH 36.0 H, MCHC 33.0, RDW 14.6, Plt Count 113 L, MPV 9.3, Neut % (Auto) 87.0 H, Lymph % (Auto) 8.2 L, [place] % (Auto) 3.0, Eos % (Auto) 1.1, Baso % (Auto) 0.7, Neut # (Auto) 11.5 H, Lymph # (Auto) 1.1, [place] # (Auto) 0.4, Eos # (Auto) 0.2, Baso # (Auto) 0.1, Total Counted 100, Neutrophils % (Manual) 89 H, Lymphocytes % (Manual) 9 L, Monocytes % (Manual) 1 L, Eosinophils % (Manual) 1, Platelet Estimate Moderate decrease, Macrocytosis 2+, Magnesium 2.1, Procalcitonin 0.404 I & O for Last 24 hours: Intake & Output 01/02/24 01/03/24 01/04/24 01/05/24 23:59 23:59 23:59 23:59 Intake Total 1120 / 1120 860 / 860 Output Total 950 / 950 650 / 650 Balance 170 / 170 210 / 210 Weight 221 lb 3.001 oz 222 lb 12.8 oz Constitutional Constitutional: no acute distress *Routine Respiratory Exam Respiratory: Present wheezes and symmetric chest movement *Routine Cardiovascular Exam Cardiovascular: Present RRR, Normal S1 and Normal S2 *Routine Abdominal Exam Abdominal: Present soft and normoactive bowel sounds; Absent tenderness *Routine Extremities Exam Extremities: Present full ROM and normal capillary refill; Absent edema *Routine Skin Exam Skin: Present intact, dry and warm Detailed Neck Exam: Thyroids Thyroid: Absent bruit Progress Note: A&P Assessment and plan (1) Acute hypoxic respiratory failure: Status: Acute (2) Pneumonia: Status: Acute Assessment and Plan Assessment and Plan for All Diagnoses:: NSTEMi -Elevated trop at [facility], first trop here is 1.05. -EKG is negative for acute ischemic changes -Currently on Lovenox 1 mg/kg twice daily -No planned intervention at this time due to inability to lay flat secondary to hypoxic respiratory failure. -Patient was loaded with aspirin at [facility]. Continue aspirin 81 mg daily. start atorvastatin 40mg daily. Will start bb once bp has improved. -Will load patient with Plavix 300 mg p.o. x 1 and then 75 mg p.o. daily after. -Hopefully can proceed with left heart catheterization for NSTEMI tomorrow if respiratory status continues to improve. Acute hypoxic respiratory failure Bilateral lower lobe consolidation concerning for pneumonia Elevated D-dimer -Originally requiring BiPAP, now on Vapotherm after IV diuretics x 1 -CTA chest negative for PE with bilateral lower lobe consolidation and alveolar opacities worrisome for pneumonia. -Recently dx with strep -Patient diuresed with Lasix 40 mg IV x 1. Continue to monitor I's and O's -Echo shows normal EF, moderately dilated right ventricle, moderate MR/TR. -Will defer treatment of pneumonia to primary and pulmonary services Tobacco use -Smoking cessation advised History of hypertension with current hypotension -Currently hypotensive after diuretics, continue to monitor Diabetes mellitus Hyperglycemia -Defer to primary service CV summary 01/05/2024: Patient appears to be doing better this morning, reports shortness of air has improved. Patient still requiring Vapotherm. Morning chest x-ray is pending. Patient remains hypotensive but asymptomatic with adequate urine output noted. Cardiology will continue to follow, plan for left heart catheterization for NSTEMI tomorrow if respiratory status will allow.
--- NOTE | 2024-01-05 11:25 | HMH.OTEV ---
OT Inpatient Evaluation Rehab OT IP Evaluation Start: 01/04/24 10:30 Freq: ONCE Status: Active Protocol: Document 01/05/24 11:17 [facility] (Rec: 01/05/24 11:25 [facility] [id number]) Rehab OT IP Assessment Subjective History Pt oriented x 3 on arrival. Pt agreeable to engage in therapy evaluation. Pt admitted on 01/04/24 due to NSTEMI and COPD exacerbation. History and physical report: Patient is a 58-year-old female with past medical history of diabetes mellitus, active tobacco use, hypertension who presented to hospital due to chest pain/ shortness of breath. Patient was found to have elevated troponin, patient was referred to H&H for possible NSTEMI. Patient at time of my evaluation denies active chest pain, she appears to be in shortness of breath. She was started on IV heparin, BiPAP and was sent to the [facility] for further evaluation. Patient's family/ son is also at the bedside. Patient denies fever chills nausea vomiting diarrhea constipation. She denies being on diabetic medications Subjective It was so scary not being able to breathe. Pt reports prior to being in the hospital, she lived at home alone. Pt claims she was independent with all ADLs and IADLs. She did not use any type of AE during functional transfers. She also still drove. She does wear o2 at night, but admits she is not consistent with wearing it. Objective Patient Orientation Person,Place,Birthday Right Upper Extremity Gross ROM WFL Left Upper Extremity Gross ROM WFL Bed Mobility bed mobility-scooting,bed mobility - supine/sit Assist Level Minimal x 1 (25% assist) Transfer Training Sit/Stand Transfer Assist Level Minimal x 1 (25% assist) Rehab OT IP prob,goals,plan Problems Date of Evaluation: 01/05/24 OT IP Problems Bed Mobility,Transfers,Balance ,Self care,Safety Rehab Potential Rehab Potential Good Equipment Needs Assistive Devices Rolling / Wheeled Walker Plan OT intervention Plan Bed Mobility,Transfers,Balance ,Self care,Safety,Therapeutic Exercise OT Plan Frequency Daily Duration LOS Discharge Goals Bed Mobility Ability Assistance x1 Sit to Stand Chair Transfer Ability Minimal x 1 (25% assist) Chair Transfer Ability Minimal x 1 (25% assist) Chair Transfer Technique Sit to/from Ambulatory Chair Transfer Assistive Devices Rolling Walker Feeding Ability Assist with Tray Set Up Lower Body Dressing Ability Minimal Assistance Upper Body Dressing Ability Standby Assistance Bathing Ability Minimal Assistance Performing Toilet Hygiene Ability Contact Guard Overall Commode/Toilet Transfer Ability Minimal Assistance Commode/Toilet Transfer Technique Sit to/from Ambulatory Commode/Toilet Transfer Assistive Grab Bars Devices Oral Care Assist Contact Guard Decrease in Endurance Yes Discharge Plan OT Discharge Plan Pt will continue to be seen for OT services while at [facility]. Pt can return home once medically stable per physician . Therapist recommends OT evaluation upon returning home for continued skilled therapy services. Eval Complexity Eval Charge Codes 41600 - Moderate Complexity PHYSICIAN CERTIFICATION: I certify the specified therapy services for Aylin Richmond are required, authorized, and reviewed every 30 days.
[2024-01-05 11:37] LABS: POC Glucose,Bedside 171 (70-110)
--- NOTE | 2024-01-05 12:03 | HMH.PTEV ---
Physical Therapy Evaluation Rehab PT IP Evaluation Start: 01/04/24 10:30 Freq: ONCE Status: Active Protocol: Document 01/05/24 11:58 [facility] (Rec: 01/05/24 12:03 [facility] [id number]) Subjective/History History History Per H&P: Patient is a 58-year-old female with past medical history of diabetes mellitus, active tobacco use, hypertension who presented to hospital due to chest pain/ shortness of breath. Patient was found to have elevated troponin, patient was referred to H&H for possible NSTEMI. Patient at time of my evaluation denies active chest pain, she appears to be in shortness of breath. She was started on IV heparin, BiPAP and was sent to the [facility] for further evaluation. Patient's family/ son is also at the bedside. Patient denies fever chills nausea vomiting diarrhea constipation. She denies being on diabetic medications. Subjective Subjective PLOF per pt report: Pt lives in a mobile home primarily alone but does have some family visit if needed. 1STE home. IND with ADLs and functional mobility without AD use. New diagnosis of cancer in past 12 No months? Rehab PT IP Eval Objective Appearance Patient Behavior Appropriate,Cooperative Patient Orientation Person,Place,Situation Difficulty following instructions none Speech Pattern Clear Ambulation Patient Able to Ambulate Yes Ambulation Observation IP General Gait Pattern Observation Wide Based Gait Ambulation Distance (feet) 5 Ambulation Assistive Device None Ambulation Ability Contact Guard/Hand Hold Balance Ability to Arise Able, uses arms to help Sitting Balance Steady, safe Standing Balance Steady, wide stance Transfers Bed Transfer Ability Minimal x 1 (25% assist) Sit to Stand Bed Transfer Ability Contact Guard/Hand Hold Rehab PT IP prob,goals,plan Problems Date of Evaluation: 01/05/24 PT IP Problems Bed Mobility,Transfers,Gait, Balance,Self care,Safety Rehab Potential Rehab Potential Good Equipment Needs Assistive Devices None / NA Plan PT Intervention Plan Bed Mobility,Transfers,Gait, Balance,Safety,Therapeutic Exercise Other Intervention Plan 1-2 times PT Plan Frequency Daily Duration LOS Discharge Goals Bed Transfer Ability Supervision/Stand by Sit to Stand Chair Transfer Ability Supervision/Stand by Ambulation Distance (feet) 10 Discharge Plan PT Discharge Plan Pt safe to d/c home when deemed medically necessary d/t current level of mobility, home set-up, and family support. Pt would benefit from skilled PT while at [facility] to prevent further functional decline and maximize safety with mobility. PT recommending HH services to address endurance and strength deficits. Eval Complexity Eval Charge Codes 76728 - Moderate Complexity PHYSICIAN CERTIFICATION: I certify the specified therapy services for Aylin Primo Yi are required, authorized, and reviewed every 30 days.
[2024-01-05] MEDS: LEVOFLOXACIN/D5W 750 MG/150 ML 750 MG/150 ML PIGGYBACK 100 MG IV (14:00)
[2024-01-05] MEDS: NICOTINE 7MG/24HRS PATCH 7 MG TD (14:10)
--- NOTE | 2024-01-05 16:46 | EXP.PN ---
Subjective *Date: 01/05/24 *Time: 16:46 Interval history: patient was seen and evaluated at the bedside. denies chest pain, shortness of breath, nausea, vomiting, abdominal pain. Exam Data for Last 24 hours Vital signs and Labs for Last 24 Hours: Temp Pulse Resp BP Pulse Ox O2 Del Method O2 Flow Rate 97.7 F 68 16 94/62 L 95 Vapotherm 30 01/05/24 15:54 01/05/24 14:00 01/05/24 14:00 01/05/24 14:00 01/05/24 14:00 01/05/24 15:20 01/05/24 15:20 FiO2 60 01/05/24 15:20 Laboratory Results - last 24 hr 01/04/24 17:36: POC Glucose 381 H* 01/04/24 20:44: POC Glucose 296 H 01/05/24 05:45: POC Glucose 185 H 01/05/24 06:52: WBC 13.3 H, RBC 3.83 L, Hgb 13.8, Hct 41.8, MCV 109.2 H, MCH 36.0 H, MCHC 33.0, RDW 14.6, Plt Count 113 L, MPV 9.3, Neut % (Auto) 87.0 H, Lymph % (Auto) 8.2 L, Storey % (Auto) 3.0, Eos % (Auto) 1.1, Baso % (Auto) 0.7, Neut # (Auto) 11.5 H, Lymph # (Auto) 1.1, Storey # (Auto) 0.4, Eos # (Auto) 0.2, Baso # (Auto) 0.1, Total Counted 100, Neutrophils % (Manual) 89 H, Lymphocytes % (Manual) 9 L, Monocytes % (Manual) 1 L, Eosinophils % (Manual) 1, Platelet Estimate Moderate decrease, Macrocytosis 2+, Magnesium 2.1, Procalcitonin 0.404 01/05/24 11:23: POC Glucose 171 H I & O for Last 24 hours: Intake & Output 01/02/24 01/03/24 01/04/24 01/05/24 23:59 23:59 23:59 23:59 Intake Total 1120 / 1120 1220 / 1220 Output Total 950 / 950 850 / 850 Balance 170 / 170 370 / 370 Weight 100.329 kg 101.06 kg Constitutional Constitutional: no acute distress *Routine HEENT Exam Head: Present normocephalic Eye: Present EOMI and PERRL ENT: Present mucous membranes moist *Routine Neck Exam Neck: Present supple; Absent lymphadenopathy *Routine Respiratory Exam Respiratory: Present wheezes and diminished air movement *Routine Cardiovascular Exam Cardiovascular: Present RRR *Routine Abdominal Exam Abdominal: Present soft and normoactive bowel sounds; Absent tenderness *Routine Extremities Exam Extremities: Absent cyanosis, clubbing or edema *Routine Skin Exam Skin: Present warm; Absent rash *Routine Neurological Exam Neurological: Present alert and oriented X3 Assessment and Plan *Assessment and plan (1) Pneumonia: Status: Acute Category: Medical Code(s): J18.9 - Pneumonia, unspecified organism (2) Acute hypoxic respiratory failure: Status: Acute Category: Medical Code(s): J96.01 - Acute respiratory failure with hypoxia (3) Elevated troponin: Status: Acute Category: Medical Code(s): R79.89 - Other specified abnormal findings of blood chemistry Plan Patient is a 58-year-old female with past medical history of diabetes mellitus, active tobacco use, hypertension who presented to hospital due to chest pain/shortness of breath. Patient was found to have elevated troponin, patient was referred to H&H for possible NSTEMI. Patient at time of my evaluation denies active chest pain, she appears to be in shortness of breath. She was started on IV heparin, BiPAP and was sent to the [facility] for further evaluation. Patient's family/son is also at the bedside. Patient denies fever chills nausea vomiting diarrhea constipation. She denies being on diabetic medications. Assessment and plan Acute hypoxic respiratory failure satting less than 90% on room air Suspect acute CHF Elevated troponin at previous facility, suspect NSTEMI leukocytosis Order echocardiogram Monitor on cardiac telemetry weaned off of BIPAP, now on NC Monitor troponin Check procalcitonin Check chest x-ray Consult cardiology, consult pulmonary-appreciate recommendations - plan for cardiac cath tomorrow for NSTEMI start 40 IV twice daily Lasix, patient denies being on Lasix at home continue levofloxacin Continue IV heparin check Rapid flu and COVID19 Hyperglycemia due to uncontrolled diabetes mellitus Restart insulin sliding scale Long-acting insulin Check A1c Tobacco use - nicotine patch Hypertension-patient currently appears to be hypotensive Monitor DVT prophylaxis-continue IV heparin Plan for cardiac cath tomorrow, continue to wean down O2
--- NOTE | 2024-01-05 17:02 | PC.NURSE ---
Pt remains on Vapotherm 30L 60%. Sats in mid 90s. Pt has been up to the chair and tolerated well. F/C DC today. She is currently eating dinner. Call light within reach.
[2024-01-05 17:11] LABS: POC Glucose,Bedside 186 (70-110)
[2024-01-05 21:08] LABS: POC Glucose,Bedside 164 (70-110)
[2024-01-05] MEDS: ATORVASTATIN 40MG TABLET 40 MG PO (21:09)
[2024-01-05] MEDS: INSULIN GLARGINE 100 UNITS/ML 10ML VIAL 10 UNIT SQ (21:10)
[2024-01-06] VITALS (42 sets, daily range): BP systolic 68–223; BP diastolic 40–140; PULSE 71–120; RESP 18–35; TEMP 36.1–37.2; O2SAT 82–98; BMI 37.0
[2024-01-06] MEDS: IPRATROPIUM/ALBUTEROL 3 ML NEB IH ×5 (00:15→18:27)
--- NOTE | 2024-01-06 02:56 | PC.NURSE ---
PT STATES SHE IS INCONTINENT. PUREWICK PLACED AFTER DOSE OF LASIX ADMINISTERED. AT 0200 CANISTER EMPTY AND PT DRY. PT WAS BLADDER SCANNED AND IT SHOWED ONLY 250 BUT PT STATED SHE FELT LIKE SHE WAS FULL. MILD DISTENTION NOTED ON ASSESSMENT. Polly GUILLEN MADE AWARE. STATED TO INSERT COSTA AT THIS TIME. COSTA INSERTED AT 0235.
[2024-01-06] MEDS: FUROSEMIDE 100MG/10ML VIAL 80 MG IV (04:10)
[2024-01-06 04:14] LABS: ABG Base Excess 2.8 mmol/L (-2.4-2.3); ABG HCO3 29.4 mmhg (22.0-26.0); ABG Oxygen Saturation 90 % (90-100); ABG PH 7.29 mmol/L (7.35-7.45); ABG TCO2 31.3 mmhg (23-27)
[2024-01-06 04:16] LABS: Oxygen 100% %; Pressure Support BIPAP 20/10
[2024-01-06 04:17] LABS: ABG PCO2 62.3 mmhg (35.0-45.0); Allen's Test Acceptable; Source Right Radial
[2024-01-06 04:20] LABS: POC Glucose,Bedside 180 (70-110)
--- NOTE | 2024-01-06 04:23 | XR_ITS ---
PROCEDURE INFORMATION: Exam: XR Chest Exam date and time: 01/06/2024 4:24 AM Age: 58 years old Clinical indication: Shortness of breath; Additional info: Worsening hypoxia TECHNIQUE: Imaging protocol: Radiologic exam of the chest. Views: 1 view. COMPARISON: CR XR CHEST PORTABLE 01/05/2024 9:59 AM FINDINGS: Lungs: Stable bilateral lower lobe lung opacities. Pleural spaces: Stable blunting of the bilateral costophrenic angles. Heart/Mediastinum: Unremarkable. No cardiomegaly. Bones/joints: No acute change in the osseous structures. Suggestion of possible right Hill-Sachs deformity, correlate with patient history of trauma/dislocation. IMPRESSION: 1. Essentially stable examination without improvement or worsening of bilateral lung field opacities and blunting of the costophrenic angles. 2. Additional findings as above.
--- NOTE | 2024-01-06 04:32 | EXP.RR ---
Acute Rapid Response Note Subjective Date Responded: 01/06/24 Time Responded: 04:00 Provider Note: patient on respiratory distress. hypoxic. low 80's. Objective Findings: Vital Signs - Last 4 Hours Temperature 98.1 F 01/06/24 00:00 Temperature Source Oral 01/06/24 00:00 Pulse Rate 71 01/06/24 02:00 Respiratory Rate 18 01/06/24 02:00 Blood Pressure 94/66 L 01/06/24 02:00 Blood Pressure Mean 75 01/06/24 02:00 Blood Pressure Source Automatic Cuff 01/06/24 02:00 Blood Pressure Position Supine 01/05/24 06:00 02 Sat by Pulse Oximetry 90 L 01/06/24 02:00 Oxygen Delivery Method Vapotherm 01/06/24 03:00 Oxygen Flow Rate (LPM) 30 01/06/24 03:00 Lab Results for Past 12 Hours 01/06/24 04:10: POC Glucose 180 H 01/06/24 04:04: Specimen Source Right radial, O2 % 100%, ABG pH 7.29 L, ABG pCO2 62.3 H, ABG pO2 64.0 L, ABG HCO3 29.4 H, ABG Total CO2 31.3 H, ABG O2 Saturation 90, ABG Base Excess 2.8 H, Senthil Test Acceptable 01/05/24 20:58: POC Glucose 164 H 01/05/24 17:02: POC Glucose 186 H My Orders Category Date Time Status CXR --portable [XR chest portable] Stat Exams 01/06/24 04:23 Ordered Furosemide [Lasix 100mg/10mL vial] Med 01/06/24 04:04 Once 80 mg IV ONCE ONE Ipratropium/Albuterol Sulfate [Duoneb 3mL neb] Med 01/06/24 03:52 Ordered 3 ml IH Q4HP PRN ABG [Arterial Blood Gas] Stat RT 01/06/24 04:04 Completed Radiology Findings #1: Xray Reviewed: Chest Image Reviewed: Yes I reviewed the patient's radiology image w/the ED provider ED XR Results: Abnormal XR Narrative: increased pulmonary congestion. Acute pulmonary edema suspected Rapid Response Exam General General appearance: anxious, lethargic and in distress Head Head exam: atraumatic and normocephalic Eye Eye exam: Present normal appearance ENT ENT exam: Present normal exam Neck Neck exam: Present normal inspection Chest Chest inspection: Present rash and other Expanded Chest Exam Trauma: Present ecchymosis Breast: bilateral: erythema Respiratory Respiratory exam: Present respiratory distress and accessory muscle use Expanded Respiratory Exam Location: Left: rales, Right: rales, Upper: rales and Lower: rales Cardiovascular Cardiovascular exam: Present regular rate, normal rhythm and tachycardia Abdominal Exam Abdominal exam: Present soft and hypoactive bowel sounds Extremities Exam Extremities exam: Present clubbing and cyanosis Neurological Exam Neurological exam: Present alert Expanded Neurological Exam Patient oriented to: Present person Speech: Present fluid speech Psychiatric Psychiatric exam: Present agitated and anxious Skin Skin exam: Present warm, dry, cyanosis and erythema RR Procedures/Assess/Plan Bedside Intubation Time Out Performed: Yes Sedative: Etomidate Mg given: 30 Laryngoscope: fiber optic video scope Assist Device Used: Bougie Tube size: 7 Tube uncuffed: Yes Secured Depth: 22 Secured location: other Placement confirmation: visualized tube passing through cords, equal breath sounds bilaterally and confirmation by capnometry Patient tolerated procedure intubation: no complications Additional Bedside Procedures NG tube insertion: No Rivers catheter insert: Yes Peripheral IV access: Yes Arterial blood draw: Yes Physician Consults Physician Consulted: Pulmo Time consultation 1: 05:04 (1) Acute pulmonary edema: Status: Acute (2) Pneumonia: Status: Acute (3) Acute hypoxic respiratory failure: Status: Acute (4) Elevated d-dimer: Status: Acute (5) Elevated troponin: Status: Acute Assessment and plan all Dx Assessment and Plan for all problems:: patient seen and evaluated bedside. on respiratory distress,. Previously expressed DNI. found on very low sat. at 35L vapotherm. switched to BiPaP. 100% with no improvement. patient agreed to be entubated. explained complications and risk. Discussed also with Ed provider. patient to be bedside entubated. physical examn found erythema on her upper chest . hypertensive. frosty saliva while advancing ET tube. succefully placed and secured CXR ordered. patient bleeding from IV site ., been on full dose of lovenox Pt/INR ordered. hold lovenox one time 80mg lasix given. Bp normalized after entubation respiratory to assist. Pulmonary toileting
--- NOTE | 2024-01-06 04:33 | PC.NURSE ---
patient O2 sats declining now placed on Bi-pap; patient changed code status from DNI to Full Code - witnessed by Livia Chavez RN Charge Nurse and this movie writer; family notified.
--- NOTE | 2024-01-06 04:46 | XR_ITS ---
PROCEDURE INFORMATION: Exam: XR Chest Exam date and time: 01/06/2024 4:46 AM Age: 58 years old Clinical indication: Device placement; Ett placement (vent status); Additional info: Intubation TECHNIQUE: Imaging protocol: Radiologic exam of the chest. Views: 1 view. COMPARISON: CR XR CHEST PORTABLE 01/06/2024 4:24 AM FINDINGS: Tubes, catheters and devices: Endotracheal tube projects a proximally 4.9 cm from the nayeli. Lungs: Unremarkable. No consolidation. Pleural spaces: Unremarkable. No pleural effusion. No pneumothorax. Heart/Mediastinum: Unremarkable. No cardiomegaly. Bones/joints: Unremarkable. Other findings: Remainder of the exam is unchanged. IMPRESSION: 1. Endotracheal tube as above. 2. Remainder of the exam is unchanged.
[2024-01-06] MEDS: FENTANYL CITRATE/PF 1,000 MCG in 0.9 % SODIUM CHLORIDE 80 ML 5 MCG IV (04:49)
[2024-01-06] MEDS: propofoL 100 ML 15.1600000000000001 MG IV (04:49)
--- NOTE | 2024-01-06 05:02 | P.PCN_ITS ---
[facility] Procedure Note Date: 01/06/24 Time: 04:45 Procedure Note:: I was consulted by the hospitalist who noted this admitted patient is in respiratory distress on maximal BiPAP settings with concerns for flash pulmonary edema. Patient was initially DNI, but she has expressed she would like to be intubated. I discussed this with the patient briefly given her acute respiratory distress, and she confirms she wants emergent intubation. Patient satting 80% on BiPAP at 100% FiO2 pre-intubation. Endotracheal intubation The patient required endotracheal intubation. The patient was given Etomidate?30 mg Succinylcholine 100 mg Once the patient was adequately sedated and paralyzed, a?Mac 3 video-assisted ?laryngoscope was used to directly visualize the cords. Using this direct visualization, a?7.5?cuffed endotracheal tube was then passed easily through the cords. This tube was inserted to?22 cm?at the gums. There was excellent color change on the end-tidal CO2 monitor. The patient was easily and adequately ventilated. There were excellent breath sounds bilaterally with no breath sounds heard over the epigastrium. The tube was secured in the standard fashion. The patient tolerated this procedure well and there were no complications. Post-intubation chest x-ray independently interpreted by myself demonstrates excellent endotracheal tube placement. Patient tolerated the procedure well with no immediate complications. Post- intubation O2 saturation >95% and BP 140's/90's. No further concerns per primary team. Patient was stable at my time of departure.
[2024-01-06 05:15] LABS: Basophils # 0.3 K/mm3 (0-0.2); Basophils % 1.8 % (0.1-2.0); Eosinophils # 0.5 K/mm3 (0.0-0.4); Eosinophils % 2.9 % (0.1-12.0); Hematocrit 49.3 % (37.0-47.0); Lymphocytes # 3.6 K/mm3 (0.7-4.5); Lymphocytes % 20.5 % (10-50); Mean Corpuscular HGB Conc 32.9 g/dL (31.8-35.4); Mean Corpuscular Hemoglobin 35.8 pg (27.0-31.2); Mean Corpuscular Volume 108.8 fl (81-99); Mean Platelet Volume 9.1 fl (7.4-10.4); Monocytes # 0.6 K/mm3 (0.1-1.0); Monocytes % 3.1 % (1.7-9.3); Neutrophils # 12.7 K/mm3 (1.8-7.8); Neutrophils % 71.8 % (37.0-80.0); Platelet Count 231 K/mm3 (142-424); Red Blood Count 4.53 M/mm3 (4.20-5.40); Red Cell Distribution Width 14.8 % (11.5-17.5); White Blood Count 17.7 K/mm3 (4.8-10.8)
[2024-01-06 05:23] LABS: Hemoglobin 16.2 g/dL (12.2-16.2)
[2024-01-06 05:24] LABS: MANUAL DIFFERENTIAL MANUAL DIFFERENTIAL (MANUAL DIFF)
[2024-01-06 05:25] LABS: INR 1.21 (0.9-1.1); Prothrombin Time 12.9 seconds (10.1-12.5)
[2024-01-06 05:32] LABS: Eosinophils % 3 % (0-3); Hypochromasia 2+; Lymphocytes % 18 % (10-50); Monocytes % 5 % (2-9); Neutrophils % 74 % (42-76); Platelet Estimate Normal; Total Cells Counted 100
[2024-01-06 05:33] LABS: Macrocytosis 2+
[2024-01-06] MEDS: NOREPINEPHRINE BITARTRATE/D5W 8 MG/250 ML PLAST..BAG 22.5 MG IV (05:35)
[2024-01-06 06:16] LABS: ABG Base Excess 0.6 mmol/L (-2.4-2.3); ABG HCO3 27.1 mmhg (22.0-26.0); ABG Oxygen Saturation 89 % (90-100); ABG PH 7.29 mmol/L (7.35-7.45); ABG PO2 62.8 mmhg (80-100); ABG TCO2 28.9 mmhg (23-27)
[2024-01-06] MEDS: BUDESONIDE 0.5MG/2ML NEB 0.5 MG IH ×2 (06:26→18:27)
--- NOTE | 2024-01-06 06:32 | PC.NURSE ---
0359 THIS RN WAS CALLED AND NOTIFIED OF JUMP IN PT HR TO 120 0404 ARRIVED TO BEDSIDE. RT AND MD AT BEDSIDE. PT IS DIAPHORETIC AND TACHYPNEIC BREATHING 30-40/MIN. HR 118. BP 223/140. 02 82% ON VAPOTHERM 40L/100%. MD STATES TO GIVE 80MG IV LASIX AT THIS TIME. 0410 80MG IV LASIX ADMINISTERED. PT IS MOTTLED FROM FEET TO ABDOMEN. LUNG SOUNDS COARSE CRACKLES THROUGHOUT. PT IS COUGHING UP SLIMY RED BLOOD. RT APPLYING BIPAP TO PT. 85% O2. 0421 MD NOTIFIED OF PT CURRENT CONDITION. STATES TO ORDER PORTABLE STAT CHEST XRAY 0423 RADIOLOGY NOTIFIED 0426 PT O2 83% ON BIPAP. PT A/O X4. PT ASKED IF SHE WOULD LIKE TO BE INTUBATED. PT IS AGREEABLE. 0430 STUDIO DATA ANALYST MADE AWARE OF PT STATUS 0432 MD MADE AWARE OF PT CODE STATUS CHANGE. STATES HE WILL CALL ER MD TO COME UP TO BEDSIDE WITH HIM TO ASSESS PT. 0433 PT ASKED IF SHE WOULD LIKE US TO NOTIFY FAMILY. SHE STATED TO NOTIFY SON. 0435 SON CONTACTED AND UPDATED ON PT DECLINING STATUS. STATES HE WILL COME TO HOSPITAL. 0436 2ND IV ACCESS TO L AC, 20G. 0438 Polly GUILLEN AND ALMA UNDERWOOD AT BEDSIDE. PATIENT AND MD AGREE TO EMERGENCY INTUBATION. 0443 HOSPITALIST, ER MD, RT, STUDIO DATA ANALYST, AND THIS RN AT BEDSIDE. 30MG ETOMIDATE AND 100MG SUCCS ADMINISTERED. 7.5 EET PLACED, 22 @ THE GUMS 0445 BP 147/92, HR 114, O2 885, RR 20. VENT SETTINGS 100% FIO2, PEEP 8, RR 20, TV 420. 0449 FENTANYL GTT STARTED @ 50MCG/HR, PROPOFOL STARTED @ 25MCG/KG/MIN 0453 16 CROATIAN COSTA INSERTED 0454 RADIOLOGY AT BEDSIDE FOR X RAY TO CONFIRM ETT PLACEMENT 0455 NOTIFIED LAB OF STAT LAB ORDERS 0500 SON AT BEDSIDE. UPDATED ON PT STATUS. 0519 PT MOVED TO ROOM 217 0529 MANUAL BP 64/41, PROPOFOL PUT ON HOLD 0535 LEVOPHED STARTED AT 12MCG/MIN 0540 MITTS APPLIED TO PT 0545 BP 131/93. PROPOFOL RESTARTED @ 25 MCG/KG/MIN. 0552 OG INSERTED, 22CM @ THE TEETH.
--- NOTE | 2024-01-06 06:56 | XR_ITS ---
FINAL REPORT CLINICAL HISTORY: OGT PLACEMENT COMPARISON: None FINDINGS: SINGLE VIEW ABDOMEN A single view of the abdomen was obtained. NG tube is present with the tip in the body of the stomach. There is a nonobstructive bowel gas pattern. There is a moderate stool burden. There is degenerative change in the thoracic and lumbar spine. There is postoperative change in the right upper quadrant. IMPRESSION: NG tube tip in the body of the stomach. Moderate stool burden with nonobstructive bowel gas pattern. Reviewed, Interpreted and Dictated by Faustino Barrow III, MD Transcribed by Elisabet Turner Authenticated and [facility]
--- NOTE | 2024-01-06 07:00 | PC.NURSE ---
CURRENT VENT SETTINGS: FIO2 1005 TV 420 RR 20 PEEP 10 CURRENT TITRATION: PROPOFOL 30MCG/KG/MIN FENTANOL 100MCG/HR NOREPINEPHRINE 2MCG/MIN
[2024-01-06 07:07] LABS: Oxygen 100% %; Tidal Volume 420; Vent Rate 20
[2024-01-06 07:08] LABS: ABG PCO2 57.6 mmhg (35.0-45.0); Allen's Test Patient Unable; PEEP 10; Source Right Brachial
[2024-01-06 07:41] LABS: Alanine Aminotransferase 88 U/L (12-78); Albumin Level 3.5 g/dl (3.5-5.0); Albumin/Globulin Ratio 0.8 (1.1-1.8); Alkaline Phosphatase 80 U/L (38-126); Anion Gap 6.7 mEq/L (5-15); Aspartate Amino Transferase 164 U/L (14-36); Bilirubin,Total 3.8 mg/dl (0.2-1.3); Blood Urea Nitrogen 22 mg/dl (7-17); Calcium 8.3 mg/dl (8.4-10.2); Carbon Dioxide 32 mmol/L (22.0-30.0); Chloride 103 mmol/L (98-107); Creatinine Clearance Estimated 106 mL/min (50-200); Estimated Glomerular Filt Rate 64 ml/min (>60); GFR (African American) 77 ML/MIN (>60); Globulin 4.5 g/dL (1.3-3.2); Glucose 240 mg/dl (74-100); Potassium 4.7 mmoL/L (3.5-5.1); Sodium 137 mmol/L (136-145)
[2024-01-06 07:45] LABS: Activated Partial Thrombo Time 27.1 seconds (22.8-30.6); INR 1.18 (0.9-1.1); Prothrombin Time 12.6 seconds (10.1-12.5)
[2024-01-06] MEDS: propofoL 100 ML 18.1900000000000013 MG IV ×3 (08:56→19:00)
[2024-01-06] MEDS: ASPIRIN EC 81MG TABLET 81 MG PO (08:56)
[2024-01-06] MEDS: CLOPIDOGREL 75MG TAB 75 MG PO (08:56)
--- NOTE | 2024-01-06 09:53 | EXP.PULM.PN ---
Subjective *Date: 01/06/24 *Time: 13:18 Interval history: Intubated and sedated. Pulmonology Exam Inpatient Vital signs and Labs for Last 24 Hours: Temp Pulse Resp BP Pulse Ox O2 Del Method O2 Flow Rate 97.4 F L 92 H 25 H 96/68 L 98 Mechanical Ventilation 40 01/06/24 07:55 01/06/24 08:00 01/06/24 08:00 01/06/24 08:00 01/06/24 08:00 01/06/24 08:00 01/06/24 04:04 FiO2 100 01/06/24 07:00 Laboratory Results - last 24 hr 01/05/24 06:52: Total Counted 100, Neutrophils % (Manual) 89 H, Lymphocytes % (Manual) 9 L, Monocytes % (Manual) 1 L, Eosinophils % (Manual) 1, Platelet Estimate Moderate decrease, Macrocytosis 2+, Procalcitonin 0.404 01/05/24 11:23: POC Glucose 171 H 01/05/24 17:02: POC Glucose 186 H 01/05/24 20:58: POC Glucose 164 H 01/06/24 04:04: Specimen Source Right radial, O2 % 100%, ABG pH 7.29 L, ABG pCO2 62.3 H, ABG pO2 64.0 L, ABG HCO3 29.4 H, ABG Total CO2 31.3 H, ABG O2 Saturation 90, ABG Base Excess 2.8 H, Senthil Test Acceptable 01/06/24 04:10: POC Glucose 180 H 01/06/24 05:07: WBC 17.7 H D, RBC 4.53, Hgb 16.2 D, Hct 49.3 H, MCV 108.8 H, MCH 35.8 H, MCHC 32.9, RDW 14.8, Plt Count 231 D, MPV 9.1, Neut % (Auto) 71.8, Lymph % (Auto) 20.5, [place] % (Auto) 3.1, Eos % (Auto) 2.9, Baso % (Auto) 1.8, Neut # (Auto) 12.7 H, Lymph # (Auto) 3.6, [place] # (Auto) 0.6, Eos # (Auto) 0.5 H, Baso # (Auto) 0.3 H, Total Counted 100, Neutrophils % (Manual) 74, Lymphocytes % (Manual) 18, Monocytes % (Manual) 5, Eosinophils % (Manual) 3, Platelet Estimate Normal, Hypochromasia 2+, Macrocytosis 2+ 01/06/24 05:52: PT 12.9 H, INR 1.21 H 01/06/24 06:13: Specimen Source Right brachial, O2 % 100%, ABG pH 7.29 L, ABG pCO2 57.6 H, ABG pO2 62.8 L, ABG HCO3 27.1 H, ABG Total CO2 28.9 H, ABG O2 Saturation 89 L, ABG Base Excess 0.6, Senthil Test Patient unable, Vent Rate 20, Tidal Volume 420, PEEP 10 01/06/24 07:20: PT 12.6 H, INR 1.18 H, APTT 27.1 01/06/24 07:30: Sodium 137, Potassium 4.7, Chloride 103, Carbon Dioxide 32 H, Anion Gap 6.7, BUN 22 H D, Creatinine 0.90, Estimated Creat Clear 106, Estimated GFR 64, Est GFR ( Amer) 77, Glucose 240 H, Calcium 8.3 L, Total Bilirubin 3.8 H, AST 164 H, ALT 88 H, Alkaline Phosphatase 80, Total Protein 8.0, Albumin 3.5, Globulin 4.5 H, Albumin/Globulin Ratio 0.8 L I & O for Labs for Last 24 Hours: Intake & Output 01/03/24 01/04/24 01/05/24 01/06/24 23:59 23:59 23:59 23:59 Intake Total 1120 / 1120 1390 / 1390 101.642 / 101.642 Output Total 950 / 950 850 / 850 0 / 0 Balance 170 / 170 540 / 540 101.642 / 101.642 Weight 221 lb 3.001 oz 222 lb 12.8 oz 222 lb 12.786 oz Constitutional: Present severe distress Comment:: Intubated and Sedated Head: Present normocephalic and atraumatic ENT: Present normal exam, normal oropharynx and mucous membranes moist Neck: Present normal inspection and full ROM Respiratory: Present respiratory distress, rhonchi and wheezes; Absent able to speak in complete sentences Cardiac: Present S1/S2, Tachycardia and radial pulses present GI: Present soft and distention; Absent tenderness or guarding Rectal (female): Present deferred (female): Present deferred Skin: Present intact; Absent cyanosis or jaundice Neuro: Absent alert, awake or oriented x 3 Comment:: Intubated and sedated Extremities: Present normal inspection; Absent clubbing or cyanosis Psychiatric: Present normal affect and cooperative Assessment and Plan *Assessment and plan (1) Acute hypoxic respiratory failure: Status: Acute Category: Medical Code(s): J96.01 - Acute respiratory failure with hypoxia (2) Pneumonia: Status: Acute Category: Medical Code(s): J18.9 - Pneumonia, unspecified organism (3) On mechanically assisted ventilation: Status: Acute Category: Medical Code(s): Z99.11 - Dependence on respirator [ventilator] status (4) ARDS (adult respiratory distress syndrome): Status: Acute Category: Medical Code(s): J80 - Acute respiratory distress syndrome Plan Ms. Richmond is a 66-year-old female greater than [id number] smoking history and carries a diagnosis of COPD baseline using albuterol/nebulizers presented to the ER for worsening chest pain and shortness of breath and pulmonary was called for further evaluation and management. Chest x-ray upon admission bilateral lower lobe airspace disease, left greater than right. Interstitial thickening is also noted, likely a combination of airspace disease and volume overload. Neutrophilic leukocytosis upon admission. Serum ammonia also elevated upon admission. Patient admission was initiated on BiPAP therapy. No blood gas available. On initial examination patient is awake responding to verbal commands. Weaned from BiPAP to high flow nasal cannula. Wheezing on auscutation. CTA personally reviewed, no evidence of pulmonary embolism bilateral lower lobe dense consolidative changes left greater than right. Small effusions also noted. Significant emphysematous changes also noted. Calcified lymphadenopathy noted Interval update: Significant respiratory events overnight with worsening hypoxic respiratory failure needing intubation mechanical ventilatory support. Chest x-ray postintubation reviewed, continue to show bilateral airspace disease left greater than right with interstitial component. ET tube in place. Afebrile. Worsening leukocytosis, esinophilic Plan: -Continue mechanical ventilatory support, currently on propofol and fentanyl. -Continue current ventilator settings,PEEP of 10, 100% FiO2. Saturating 98%. Will wean FiO2 as tolerated. ABG immediately postintubation showed hypercarbic and hypoxic respiratory failure. Change antibiotic to Zosyn and Azithromycin Pending bronchoscopy and sputum culture results, blood culture results and nasal MRSA PCR Follow with CRP, SPENCER screen, Strongyloides antibody urine strep and Legionella antigens Initiate methylprednisolone 40 every 12 hours DuoNebs Q6 and pulmicort Q12 scheduled Hemodynamically stable. On pressors. Will continue norepinephrine with MAP goal of greater than 65. Abdomen soft nontender. AST ALT elevated. Will monitor closely. Recommend initiating tube feeds. Hematuria noted. On full dose anticoagulation for NSTEMI, held overnight. Cardiology following. Adequate urine output. Will closely monitor. Renally dose medications. - Continue mechanical ventilatory support - Continue AnalgoSedation with Propofol and Fentanyl with CPOT gal less than or euqal to 2 and RASS goal of to 2 (No need for deep sedation) - VAP bundle Recommend elevate head of the bed at 30 to 45 degrees Recommend oral care with chlorhexidne Recommend GI ulcer prophylaxis - Famotidine 20mg IV BID Recommend chemical DVT prophylaxis Total critical care time spent on this patient is 35 minutes managing acute hypoxic respiratory failure needing mechanical ventilation. This time spent include reviewing test results including interpreting chest x-rays, labs and arterial blood gas, optimizing the ventilator settings,formulating plan of care, discussing the plan of care with the team and the nursing staff.
[2024-01-06 11:02] LABS: POC Glucose,Bedside 252 (70-110)
--- NOTE | 2024-01-06 11:03 | PC.NURSE ---
BRONCHOSCOPY STARTED AT BEDSIDE WITH MD TOTH PERFORMING
[2024-01-06] MEDS: LORazepam 2MG/ML VIAL 2 MG IV (11:06)
--- NOTE | 2024-01-06 11:06 | DIET.NUTRFU ---
Addendum entered by Martha Rucker RD, ENRIKE 01/07/24 14:25: continue on vent, SBT possible later today or tomorrow for extubation. Respiratory status improved. Would benefit from enteral nutrition until oral diet is feasible, provider was consulted. Addendum entered by Martha Rucker RD, ENRIKE 01/06/24 11:11: Extra sedation given for Bronch, propofol increased. Original Note: intitate TF if unable to extubate tomorrow 01/06: pulmocare at 20ml/hr increase to 50ml/hr x 24 [id number]/1920kcal/82.6gm protein and 1036ml free water+150 [id number] flush/day= total fluid 1936ml/day nutritional needs are 2000kcal/80-90gm protein/2000ml day did not choose glucerna d/t goal rate would need to be at 80ml/hr it is a 1.0/1ml formula. A1c 7.0. ET is already in place
--- NOTE | 2024-01-06 11:06 | PC.NURSE ---
INCREASED PROPOFOL TO 50MCG/KG/MIN FOR BRONCH, MD TOTH ORDERED 2MG ATIVAN IV FOR ADDITIONAL SEDATION FOR BRONCH, 2MG ATIVAN GIVEN IV WHILE MD AT BEDSIDE
--- NOTE | 2024-01-06 11:14 | P.PN_ITS ---
Subjective Subjective Date: 01/06/24 Time: 08:00 Principal diagnosis: NSTEMI, COPD exacerbation, pneumonia Interval history: Significant respiratory events overnight with worsening hypoxic respiratory failure needing intubation with mechanical ventilatory support. Pulmonology is following. Morning labs reviewed. Patient is hypotensive requiring Levophed and is sedated with propofol and fentanyl. Hematuria is noted. Exam Data for Last 24 hours Vital signs and Labs for Last 24 Hours: Temp Pulse Resp BP Pulse Ox O2 Del Method O2 Flow Rate 97.4 F L 88 20 113/81 98 Mechanical Ventilation 40 01/06/24 07:55 01/06/24 10:00 01/06/24 10:00 01/06/24 10:00 01/06/24 10:00 01/06/24 11:00 01/06/24 04:04 FiO2 100 01/06/24 10:00 Laboratory Results - last 24 hr 01/05/24 11:23: POC Glucose 171 H 01/05/24 17:02: POC Glucose 186 H 01/05/24 20:58: POC Glucose 164 H 01/06/24 04:04: Specimen Source Right radial, O2 % 100%, ABG pH 7.29 L, ABG pCO2 62.3 H, ABG pO2 64.0 L, ABG HCO3 29.4 H, ABG Total CO2 31.3 H, ABG O2 Saturation 90, ABG Base Excess 2.8 H, Senthil Test Acceptable 01/06/24 04:10: POC Glucose 180 H 01/06/24 05:07: WBC 17.7 H D, RBC 4.53, Hgb 16.2 D, Hct 49.3 H, MCV 108.8 H, MCH 35.8 H, MCHC 32.9, RDW 14.8, Plt Count 231 D, MPV 9.1, Neut % (Auto) 71.8, Lymph % (Auto) 20.5, [place] % (Auto) 3.1, Eos % (Auto) 2.9, Baso % (Auto) 1.8, Neut # (Auto) 12.7 H, Lymph # (Auto) 3.6, [place] # (Auto) 0.6, Eos # (Auto) 0.5 H, Baso # (Auto) 0.3 H, Total Counted 100, Neutrophils % (Manual) 74, Lymphocytes % (Manual) 18, Monocytes % (Manual) 5, Eosinophils % (Manual) 3, Platelet Estimate Normal, Hypochromasia 2+, Macrocytosis 2+ 01/06/24 05:52: PT 12.9 H, INR 1.21 H 01/06/24 06:13: Specimen Source Right brachial, O2 % 100%, ABG pH 7.29 L, ABG pCO2 57.6 H, ABG pO2 62.8 L, ABG HCO3 27.1 H, ABG Total CO2 28.9 H, ABG O2 Saturation 89 L, ABG Base Excess 0.6, Senthil Test Patient unable, Vent Rate 20, Tidal Volume 420, PEEP 10 01/06/24 07:20: PT 12.6 H, INR 1.18 H, APTT 27.1 01/06/24 07:30: Sodium 137, Potassium 4.7, Chloride 103, Carbon Dioxide 32 H, Anion Gap 6.7, BUN 22 H D, Creatinine 0.90, Estimated Creat Clear 106, Estimated GFR 64, Est GFR ( Amer) 77, Glucose 240 H, Calcium 8.3 L, Total Bilirubin 3.8 H, AST 164 H, ALT 88 H, Alkaline Phosphatase 80, Total Protein 8.0, Albumin 3.5, Globulin 4.5 H, Albumin/Globulin Ratio 0.8 L 01/06/24 10:54: POC Glucose 252 H I & O for Last 24 hours: Intake & Output 01/03/24 01/04/24 01/05/24 01/06/24 23:59 23:59 23:59 23:59 Intake Total 1120 / 1120 1390 / 1390 107.242 / 107.242 Output Total 950 / 950 850 / 850 400 / 400 Balance 170 / 170 540 / 540 -292.758 / -292.758 Weight 221 lb 3.001 oz 222 lb 12.8 oz 222 lb 10.67 oz *Routine Respiratory Exam Respiratory: Present wheezes and symmetric chest movement Comments: Patient is intubated *Routine Cardiovascular Exam Cardiovascular: Present Normal S1 and Normal S2 *Routine Extremities Exam Comments: Mild lower extremity edema present Progress Note: A&P Assessment and plan (1) Acute hypoxic respiratory failure: Status: Acute (2) Pneumonia: Status: Acute Assessment and Plan Assessment and Plan for All Diagnoses:: NSTEMi -Elevated trop at [facility] trop here is 1.05. -EKG is negative for acute ischemic changes -Was on Lovenox 1mg/kg but is now on hold due to bleeding -No planned intervention at this time due to respiratory failure/bleeding -Aspirin and plavix on hold. -Statin on hold due to elevated liver enzymes Chronic HFpEF RV dilation with mild reduction in function -Echo shows normal EF with moderate RV dilation and mild reduction in function. mild MR. mild to moderate TR. RVSP 25-30. will repeat limited status post intubation -BP too low for diuretics at this point- -Will consider addition of jardiance at later date. Acute hypoxic respiratory failure-requiring intubation Bilateral lower lobe consolidation concerning for pneumonia Elevated D-dimer Sepsis -Originally requiring BiPAP, then was weaned to Vapotherm shortly after arrival to the hospital. Last night patient developed worsening hypoxic respiratory failure. Patient was placed back on BiPAP and given Lasix 80 mg IV x 1 without improvement. Patient was intubated per ED doctor. -CTA chest 01/03 negative for PE with bilateral lower lobe consolidation and alveolar opacities worrisome for pneumonia. -Recently dx with step at home -Worsening leukocytosis noted -Pulmonology is following. Patient is undergoing bronchoscopy this morning. Will defer IV antibiotic selection, pneumonia and mechanical ventilation management to pulmonology. -BP too low for diuretics patient currently on pressors for blood pressure support Hematuria Nose bleed Concern for DIC Elevated liver enzymes Cirrhosis -Platelets 231, INR 1.18, total bili 3.8, AST 164, ALT 80 -Holding dapt therapy and lovenox -Cirrhosis with portal hypertension noted on cta -Defer to primary service and pulmonology Tobacco use -Smoking cessation advised History of hypertension with current hypotension -Currently hypotensive requiring Levophed Diabetes mellitus Hyperglycemia -Defer to primary service CV summary 01/06/2024: Patient is currently mechanically ventilated after worsening hypoxic respiratory failure last night that did not respond to BiPAP. Patient has had roughly 600 mL of urine output since 0400. Hematuria is noted. Nurses report bleeding from nose and mouth. DAPT therapy and lovenox will be placed on hold. Will obtain repeat limited echo. Patient is currently hypotensive requiring pressor support. Patient is status post bronchoscopy per pulmonology today.
[2024-01-06] MEDS: humaLOG 100 UNITS/ML 3ML VIAL (SSI) SQ ×3 (11:37→22:14)
[2024-01-06] MEDS: FENTANYL CITRATE/PF 1,000 MCG in 0.9 % SODIUM CHLORIDE 80 ML 10 MCG IV (13:20)
--- NOTE | 2024-01-06 14:15 | PC.NURSE ---
pt's older son does not want anything else done to his mother without speaking to the dr first, notified MD Spivey, MD Spivey coming to bedside
[2024-01-06 14:29] LABS: C-Reactive Protein 18.4 mg/L (0-4)
[2024-01-06] MEDS: PIPERACILLIN/TAZO 4.5 GM in 0.9 % SODIUM CHLORIDE 100 ML IV ×2 (14:48→21:58)
--- NOTE | 2024-01-06 14:52 | CA_ITS ---
APPROVED REPORT EXAM: Limited 2D Echocardiogram [employer] Sales Associate: RT Andrew(R) Ht: 5 ft 5 in Wt: 222lbs BSA: 2.07 BP: 113/81 mmHg Indications: NSTEMI, COPD, smoker, CHF, pneumonia, currently on mechanical ventilation, limited echo ordered to assess EF post ventilation, hypotension. 2D Dimensions EF AP4 46.40 % GL Strain -9.9 % Other Information Study Quality: Technically Difficult Conclusion This is a limited TTE to evaluate for LVEF and rule out pericardial effusions. Limited windows were obtained. Technically difficult study due to intubation and mechanical ventilation. The left ventricle is normal in size. There is increased LV wall thickness. No regional wall motion abnormalities are noted. The LV systolic function is hyperdynamic. LVEF is 70%. No evidence of pericardial effusions. Electronically signed by : Shavon Ferrell MD 01/07/2024 17:22:49
[2024-01-06 15:00] LABS: Fibrinogen 308 mg/dL (229.9-363.5)
[2024-01-06 15:21] LABS: D-Dimer 1.28 ug/mL (0.0-0.5)
[2024-01-06] MEDS: AZITHROMYCIN 500 MG in 0.9 % SODIUM CHLORIDE 250 ML 250 MG IV (15:21)
--- NOTE | 2024-01-06 15:32 | PC.NURSE ---
family member at bedside would like pt to be transferred to , family member states does not want pt at this facility anymore and does not believe pt wanted to be intubated, MD Spivey speaking with family member, MD Spivey agreed to start the process of transferring pt to [facility], pt's family member stated would start the process himself and MD Spivey didn't need to do anything, MD Spivey instructed family member to let him know if could do anything to assist
[2024-01-06 16:38] LABS: ABG Base Excess 5.2 mmol/L (-2.4-2.3); ABG HCO3 29.5 mmhg (22.0-26.0); ABG Oxygen Saturation 96 % (90-100); ABG PCO2 45.6 mmhg (35.0-45.0); ABG PH 7.43 mmol/L (7.35-7.45); ABG PO2 82.6 mmhg (80-100); ABG TCO2 30.9 mmhg (23-27)
[2024-01-06 16:41] LABS: Oxygen 60% %; PEEP 10; Tidal Volume 420; Vent Rate 20
[2024-01-06 16:42] LABS: Allen's Test Patient Unable; Source Right Radial
--- NOTE | 2024-01-06 17:26 | PC.NURSE ---
Addendum entered by Damaris Mireles RN 01/06/24 17:28: pt's older son only wants things done to his mother with his and/or the family present or if asked permission by staff to do so, staff will do best to make this happen when able Addendum entered by Damaris Mireles RN 01/06/24 17:27: family only wants transfer to no other facilities, MD Moreau stated if would like him to try other facilities let him know Original Note: MD Moreau attempted to transfer pt to but [facility] declined at this time, MD Moreau at bedside speaking with family about poc
--- NOTE | 2024-01-06 18:11 | EXP.EVENT.NO ---
Advance care planning note: Active diagnosis: ARDS, acute hypoxemic respiratory failure, septic shock, pneumonia The patient's active diagnoses are of sufficient risk that focused discussion on advanced care planning is indicated in order to allow the patient to thoughtfully consider personal goals of care; and, if situations arise that prevent the ability to personally give input, to ensure appropriate representation of their personal desires through documentation or informed surrogate decision makers. Discussion: Persons present and participating in discussion: Numerous family members including both her sons who are her surrogate medical decision makers Discussion: Discussed patient's current condition, her rapid decline overnight with sepsis necessitating ablation. Family concerned as patient was a DNR when she came in but based on ER documentation, changed her wish and wanted to be intubated when her breathing became more labored and she was in respiratory distress. Expressed concern that they would like her to be at a different facility. Worried that things happen when they are not here. Talked about her rapid decline necessitating acute intervention to save her life. They want her to do well and get better but they are struggling with her continued intubation and mechanical ventilation. Discussed that they would like to be updated on new developments and kept continuously informed. Would like to be involved in decisions with all care. Requesting transfer to . Attempts were made to transfer patient and as the patient does not need a higher level of care, is not escalating care, [facility] declined to the patient. Informed the family of this. They expressed frustration and displeasure with her care but would like to continue what we are doing with ventilator, antibiotics, pressors. Explained what the next 48-72 hours would look like with possible spontaneous breathing trial attempt, sedation weans and pressor and antibiotic adjustments. Did not express desire to attempt transfer to any other facility at this time. Still expressed concern about patient's wish for [facility]. Explained that she was very clear with the ER team that she wanted to be intubated. They expressed concern that things happen when they are at bedside. Time spent: Total time spent [id number] in education and discussion directly related to advance care plannin
[2024-01-06 20:33] LABS: POC Glucose,Bedside 205 (70-110)
[2024-01-06 22:11] LABS: POC Glucose,Bedside 184 (70-110)
--- NOTE | 2024-01-06 22:57 | EXP.EVENT.NO ---
Attempts to communicate with patient's family (oldest son, Heron Richmond) very difficult. Patient continually states he is trying to advocate for his mother. He wants to be informed on everything we are doing and wants us to ask permission for care. Attempt to administer bedtime insulin was impeded by her eldest son. States his mother is never been a diabetic and does not need insulin. Does not know why we are treating her for diabetes. Blood sugars 160-250 over the past 24 hours. Elevated as high as 429 on admission. Review of chart, patient's glucose was 378 on presentation to [facility] prior to transfer to [facility]. A1c obtained on 01/03 is 7. States he is comfortable with everything else but insulin. As long as we ask him before we do things. During discussion he again stated he does not trust our facility and has heard bad things about our care. Is trying to advocate for his mother. Would like to talk to social work and patient advocate. Informed him that they would be available during the day, expressed frustration that they were not available to talk. Said he was trying to get her transferred to hospital in [place], offered to call [facility] if this is what he wanted and he did not agree. He again stated that he did not know our qualifications, and did not trust our abilities. Had heard bad things about our hospital. Would not give specifics. When I informed him that the team caring for her head trained at the institution to which he wants her transferred, he again expressed concern about treating her diabetes that she does not have. Stressed that he wanted to be able to guide decisions and was just trying to advocate for his mother as he felt nobody else was. As he is trying to dictate our medical management of her, I asked if he had a medical degree. He (eldest son) became agitated and said he did not want to discuss any further in front of his mother. Asked to discuss in the hallway, when I stepped to the hallway, he did not immediately follow. Came to the door short time after and said were done talking. When I attempted to communicate with him approximately 15 minutes later in regard to her labs while at [facility] and how she met sepsis criteria which she had asked about earlier along with providing him with the printed out lab results showing she is diabetic with an A1c of 7, he stated he did not want to talk anymore. That we were not listening to him and giving him what he wanted. Stated that he would just leave and he hoped she was still alive in the morning. He proceeded to leave about 5 minutes later.
[2024-01-07] VITALS (50 sets, daily range): BP systolic 92–150; BP diastolic 56–96; PULSE 69–91; RESP 19–24; TEMP 36.9–37.7; O2SAT 90–100; BMI 37.0
[2024-01-07] MEDS: FENTANYL CITRATE/PF 1,000 MCG in 0.9 % SODIUM CHLORIDE 80 ML 10 MCG IV ×2 (00:46→10:08)
--- NOTE | 2024-01-07 01:01 | P.PN_ITS ---
Subjective *Date: 01/07/24 *Time: 06:08 Interval history: Patient comfortable over night. Wean Levophed down to 2, discontinued at 5 AM, unfortunately blood pressure began to drop and was resumed by 6 AM. Urine output low overnight, 400 cc of output over the past 12 hours, majority of that early in the evening. Continues to require mechanical ventilation, 60% FiO2, PEEP of 10, volume 420, RR 20. Afebrile overnight. Medical Exam Vital signs and Labs for Last 24 Hours: Vital Signs Temp Pulse Pulse Resp BP Pulse Ox O2 Del Method 01/07/24 00:00 93 L Mechanical Ventilation 01/07/24 00:00 85 20 101/56 L 93 L Mechanical Ventilation 01/06/24 23:00 83 20 109/68 L 97 Mechanical Ventilation 01/06/24 22:43 20 97 01/06/24 22:00 84 20 103/62 L 97 01/06/24 21:00 84 20 103/62 L 97 01/06/24 20:53 20 98 01/06/24 20:00 90 01/06/24 20:00 98.6 F 01/06/24 20:00 20 97 Mechanical Ventilation 01/06/24 20:00 86 20 102/59 L 97 Mechanical Ventilation 01/06/24 18:44 87 01/06/24 18:44 87 01/06/24 18:00 85 20 110/78 95 Mechanical Ventilation 01/06/24 18:00 20 96 01/06/24 17:05 90/62 L 01/06/24 17:00 Mechanical Ventilation 01/06/24 17:00 90 20 76/50 L 95 Mechanical Ventilation 01/06/24 16:25 20 96 01/06/24 16:00 90 01/06/24 16:00 89 20 85/58 L 94 L Mechanical Ventilation 01/06/24 15:00 Mechanical Ventilation 01/06/24 15:00 87 20 88/65 L 94 L Mechanical Ventilation 01/06/24 14:06 95 01/06/24 14:00 88 20 95/70 L 96 Mechanical Ventilation 01/06/24 14:00 01/06/24 13:55 97 Mechanical Ventilation 01/06/24 13:00 87 106/76 L 97 Mechanical Ventilation 01/06/24 13:00 Mechanical Ventilation 01/06/24 12:00 85 01/06/24 12:00 86 101/72 L 98 Mechanical Ventilation 01/06/24 11:35 84 01/06/24 11:35 81 01/06/24 11:35 23 98 01/06/24 11:24 99.0 F 01/06/24 11:00 88 102/73 L 98 Mechanical Ventilation 01/06/24 11:00 Mechanical Ventilation 01/06/24 10:20 20 96 01/06/24 10:00 01/06/24 10:00 88 20 113/81 98 Mechanical Ventilation 01/06/24 09:00 Mechanical Ventilation 01/06/24 09:00 88 20 84/60 L 97 Mechanical Ventilation 01/06/24 08:00 95 H 01/06/24 08:00 98 Mechanical Ventilation 01/06/24 08:00 92 H 25 H 96/68 L 98 Mechanical Ventilation 01/06/24 07:55 97.4 F L 01/06/24 07:00 95 H 20 137/104 H 98 Mechanical Ventilation 01/06/24 07:00 Mechanical Ventilation 01/06/24 06:45 135/99 H 01/06/24 06:26 91 H 01/06/24 06:26 90 01/06/24 06:10 117/79 01/06/24 05:57 134/92 H 01/06/24 05:42 93 H 20 131/93 H 94 L Mechanical Ventilation 01/06/24 05:29 68/40 L 01/06/24 05:16 99 H 20 186/127 H 98 Mechanical Ventilation 01/06/24 05:00 118 H 20 203/132 H 82 L Mechanical Ventilation, Ambu-Bag 01/06/24 05:00 Mechanical Ventilation 01/06/24 04:50 20 90 L 01/06/24 04:45 114 H 20 147/92 H 88 L Mechanical Ventilation, Ambu-Bag 01/06/24 04:26 83 L BiPAP 01/06/24 04:04 118 H 35 H 223/140 H 85 L Vapotherm 01/06/24 04:00 96 H 01/06/24 04:00 120 H 35 H 85 L Vapotherm 01/06/24 04:00 97.0 F L 01/06/24 03:00 Vapotherm 01/06/24 02:00 71 18 94/66 L 90 L Vapotherm O2 Flow Rate FiO2 01/07/24 00:00 60 01/07/24 00:00 60 01/06/24 23:00 60 01/06/24 22:43 30 01/06/24 22:00 01/06/24 21:00 01/06/24 20:53 60 01/06/24 20:00 01/06/24 20:00 01/06/24 20:00 60 01/06/24 20:00 60 01/06/24 18:44 01/06/24 18:44 01/06/24 18:00 60 01/06/24 18:00 60 01/06/24 17:05 01/06/24 17:00 01/06/24 17:00 60 01/06/24 16:25 60 01/06/24 16:00 01/06/24 16:00 60 01/06/24 15:00 01/06/24 15:00 60 01/06/24 14:06 60 01/06/24 14:00 60 01/06/24 14:00 80 01/06/24 13:55 80 01/06/24 13:00 100 01/06/24 13:00 01/06/24 12:00 01/06/24 12:00 100 01/06/24 11:35 01/06/24 11:35 01/06/24 11:35 100 01/06/24 11:24 01/06/24 11:00 100 01/06/24 11:00 01/06/24 10:20 100 01/06/24 10:00 100 01/06/24 10:00 100 01/06/24 09:00 01/06/24 09:00 100 01/06/24 08:00 01/06/24 08:00 100 01/06/24 08:00 100 01/06/24 07:55 01/06/24 07:00 100 01/06/24 07:00 01/06/24 06:45 01/06/24 06:26 01/06/24 06:26 01/06/24 06:10 01/06/24 05:57 01/06/24 05:42 100 01/06/24 05:29 01/06/24 05:16 100 01/06/24 05:00 100 01/06/24 05:00 01/06/24 04:50 01/06/24 04:45 01/06/24 04:26 01/06/24 04:04 40 100 01/06/24 04:00 01/06/24 04:00 40 01/06/24 04:00 01/06/24 03:00 30 01/06/24 02:00 30 60 Intake and Output 01/06/24 01/06/24 01/07/24 15:59 23:59 07:59 Intake Total 211.786 / 858.949 580.688 / 858.949 0 / 0 Output Total 400 / 770 370 / 770 Balance -188.214 / 88.949 210.688 / 88.949 0 / 0 Intake: Intake, Oral Amount 0 / 0 0 / 0 0 / 0 Intake, Total IV Amount 211.786 / 858.949 580.688 / 858.949 Azithromycin 500 mg In 0.9 % 250 / 250 Sodium Chloride 250 ml @ 250 mls/hr IV Q24H [facility]INGA Rx#:[id number] Piperacillin/Tazo 4.5 gm In 0.9 100 / 100 % Sodium Chloride 100 ml @ 200 mls/hr IV Q6H DOMINGA Rx#:[id number] Output: Output, Urine Amount 0 / 0 0 / 0 Output, Urine Amount (Catheter) 400 / 770 370 / 770 [place] 400 / 770 370 / 770 Other: Number of Unmeasured Voids 0 0 Weight 101 kg Laboratory Results - last 24 hr 01/06/24 04:04: Specimen Source Right radial, O2 % 100%, ABG pH 7.29 L, ABG pCO2 62.3 H, ABG pO2 64.0 L, ABG HCO3 29.4 H, ABG Total CO2 31.3 H, ABG O2 Saturation 90, ABG Base Excess 2.8 H, Senthil Test Acceptable 01/06/24 04:10: POC Glucose 180 H 01/06/24 05:07: WBC 17.7 H D, RBC 4.53, Hgb 16.2 D, Hct 49.3 H, MCV 108.8 H, MCH 35.8 H, MCHC 32.9, RDW 14.8, Plt Count 231 D, MPV 9.1, Neut % (Auto) 71.8, Lymph % (Auto) 20.5, [place] % (Auto) 3.1, Eos % (Auto) 2.9, Baso % (Auto) 1.8, Neut # (Auto) 12.7 H, Lymph # (Auto) 3.6, [place] # (Auto) 0.6, Eos # (Auto) 0.5 H, Baso # (Auto) 0.3 H, Total Counted 100, Neutrophils % (Manual) 74, Lymphocytes % (Manual) 18, Monocytes % (Manual) 5, Eosinophils % (Manual) 3, Platelet Estimate Normal, Hypochromasia 2+, Macrocytosis 2+ 01/06/24 05:52: PT 12.9 H, INR 1.21 H 01/06/24 06:13: Specimen Source Right brachial, O2 % 100%, ABG pH 7.29 L, ABG pCO2 57.6 H, ABG pO2 62.8 L, ABG HCO3 27.1 H, ABG Total CO2 28.9 H, ABG O2 Saturation 89 L, ABG Base Excess 0.6, Senthil Test Patient unable, Vent Rate 20, Tidal Volume 420, PEEP 10 01/06/24 07:20: PT 12.6 H, INR 1.18 H, APTT 27.1 01/06/24 07:30: Sodium 137, Potassium 4.7, Chloride 103, Carbon Dioxide 32 H, Anion Gap 6.7, BUN 22 H D, Creatinine 0.90, Estimated Creat Clear 106, Estimated GFR 64, Est GFR ( Amer) 77, Glucose 240 H, Calcium 8.3 L, Total Bilirubin 3.8 H, AST 164 H, ALT 88 H, Alkaline Phosphatase 80, Total Protein 8.0, Albumin 3.5, Globulin 4.5 H, Albumin/Globulin Ratio 0.8 L 01/06/24 10:54: POC Glucose 252 H 01/06/24 13:41: Fibrinogen 308, D-Dimer 1.28 H, C-Reactive Protein 18.4 H 01/06/24 16:24: POC Glucose 205 H 01/06/24 16:33: Specimen Source Right radial, O2 % 60%, ABG pH 7.43, ABG pCO2 45.6 H, ABG pO2 82.6, ABG HCO3 29.5 H, ABG Total CO2 30.9 H, ABG O2 Saturation 96, ABG Base Excess 5.2 H, Senthil Test Patient unable, Vent Rate 20, Tidal Volume 420, PEEP 10 01/06/24 22:02: POC Glucose 184 H I & O for Labs for Last 24 Hours: Intake & Output 01/04/24 01/05/24 01/06/24 01/07/24 23:59 23:59 23:59 23:59 Intake Total 1120 / 1120 1390 / 1390 858.949 / 858.949 0 / 0 Output Total 950 / 950 850 / 850 770 / 770 Balance 170 / 170 540 / 540 88.949 / 88.949 0 / 0 Weight 100.329 kg 101.06 kg 101 kg Microbiology Reports for the Last 24 Hours: Microbiology 01/04/24 20:15 Nose - Nasal MRSA Culture - Final Constitutional: Present no acute distress, obese and obtunded Head: Present atraumatic and normocephalic ENT: Present normal exam Comment:: ET in place with OG. Respiratory: Present patient mechanically ventilated and crackles; Absent wheezes Cardiac: Present Reg Rate and Rhythm GI: Present soft and normal bowel sounds; Absent distention or tenderness Extremities: Present normal inspection and full ROM; Absent edema Skin: Present intact; Absent erythema Comment:: Occasional spontaneous movement. Otherwise sedated and intubated Assessment and Plan *Assessment and plan (1) Septic shock: Status: Acute Category: Medical Code(s): A41.9 - Sepsis, unspecified organism; R65.21 - Severe sepsis with septic shock (2) Acute hypoxic respiratory failure: Status: Acute Category: Medical Code(s): J96.01 - Acute respiratory failure with hypoxia (3) Pneumonia: Status: Acute Category: Medical Code(s): J18.9 - Pneumonia, unspecified organism (4) On mechanically assisted ventilation: Status: Acute Category: Medical Code(s): Z99.11 - Dependence on respirator [ventilator] status (5) Elevated troponin: Status: Acute Category: Medical Code(s): R79.89 - Other specified abnormal findings of blood chemistry (6) ARDS (adult respiratory distress syndrome): Status: Acute Category: Medical Code(s): J80 - Acute respiratory distress syndrome (7) Acute pulmonary edema: Status: Acute Category: Medical Code(s): J81.0 - Acute pulmonary edema (8) Diabetes: Status: Acute Category: Medical Code(s): E11.9 - Type 2 diabetes mellitus without complications Plan Patient is a 58-year-old female with past medical history of diabetes mellitus, active tobacco use, hypertension who presented to hospital due to chest pain/shortness of breath. Patient was found to have elevated troponin, patient was referred to [facility] for possible NSTEMI. Patient at time of my evaluation denies active chest pain, she appears to be in shortness of breath. She was started on IV heparin, BiPAP and was sent to the [facility] for further evaluation. Admitted to ICU. Had decompensation with hypoxemic res piratory failure necessitating intubation. In septic shock necessitating pressors. Have been able to wean off these overnight. Pulmonology and cardiology consulted and assisting with care. Family concerned for patient's wellbeing and has requested transfer, attempted transfer unsuccessful. Septic shock Acute hypoxemic respiratory failure Pneumonia - Continues to require mechanical ventilation, 60% FiO2, PEEP of 10, volume 420, rate of 20. - Pulmonology consulted and assisting with care. Recommend continuing antibiotics with Zosyn and azithromycin for pneumonia. -Continue DuoNebs every 6 hours and Pulmicort every 12 hours -Consider spontaneous breathing trial when settings appropriate, -Continue fentanyl and propofol for analgosedation - Weaned Levophed overnight. Currently on no pressors this morning, MAP greater than 65, resume if pressure drops -Repeat chest x-ray personally reviewed showing increased left-sided airspace disease and consolidation. Heart failure with preserved ejection fraction NSTEMI -Cardiology consulted and assisting with care. - Holding on DAPT and anticoagulation due to hematuria. Cardiology holding on any intervention at this time given patient's clinical instability. Will reevaluate daily. Cirrhosis Transaminitis -Cirrhosis identified on CTA of with portal hypertension -Monitoring liver enzymes daily -Platelets 231, INR 1.18, total bili 3.8, AST 164, ALT 80 on labs from 01/05. Repeat labs from 01/06 still pending -Repeat CBC, CMP, magnesium ordered daily. Diabetes: -A1c 7.0. Having hyperglycemia, glucose consistently above 180. Continue sliding scale insulin with fingersticks every 6h. Will hold on long-acting insulin at this time Tobacco use - nicotine patch Hypertension-holding home lisinopril, frankly hypotensive. Of note: Ethics consult placed due to concerns for eldest sons interference with administration of medications, multiple comments about his distrust for facility, request for transfer, and insistence that we are not trying to help his mother. Expressed significant distrust for care. Attempts made to transfer to were unsuccessful. Have asked for alternative facilities if family wishes, they have not provided with alternative suggestions. DVT prophylaxis-continue IV heparin Full code N.p.o.
[2024-01-07] MEDS: PIPERACILLIN/TAZO 4.5 GM in 0.9 % SODIUM CHLORIDE 100 ML IV ×4 (01:28→19:36)
[2024-01-07] MEDS: propofoL 100 ML 18.1900000000000013 MG IV ×2 (04:02→09:55)
--- NOTE | 2024-01-07 06:00 | XR_ITS ---
FINAL REPORT CLINICAL HISTORY: Pneumonia mechanical ventilation COMPARISON: 01/06/2024 FINDINGS: A single portable view of the chest was obtained. An endotracheal tube tip remains present in the mid thoracic trachea, and an NG tube tip extends below the left hemidiaphragm. The heart size is within normal limits. The mediastinum is within normal limits. There are persistent bilateral pulmonary opacities, favor edema over pneumonia, slightly improved since the prior film of January 05. The bony thorax is intact. IMPRESSION: Persistent bilateral pulmonary opacities, favor edema over pneumonia, slightly improved since the prior film of January 05. Reviewed, Interpreted and Dictated by Faustino Barrow III, MD Transcribed by Kenzie Malcolm Authenticated and . [facility]
[2024-01-07 06:19] LABS: POC Glucose,Bedside 192 (70-110)
[2024-01-07] MEDS: IPRATROPIUM/ALBUTEROL 3 ML NEB IH ×4 (06:19→23:27)
[2024-01-07] MEDS: BUDESONIDE 0.5MG/2ML NEB 0.5 MG IH ×2 (06:19→17:55)
[2024-01-07] MEDS: humaLOG 100 UNITS/ML 3ML VIAL (SSI) SQ ×4 (06:23→21:54)
[2024-01-07 06:50] LABS: ABG Base Excess 6.9 mmol/L (-2.4-2.3); ABG HCO3 30.5 mmhg (22.0-26.0); ABG Oxygen Saturation 96 % (90-100); ABG PCO2 42.7 mmhg (35.0-45.0); ABG PH 7.47 mmol/L (7.35-7.45); ABG TCO2 31.8 mmhg (23-27)
[2024-01-07 06:53] LABS: Allen's Test acceptable; Oxygen 60% %; PEEP 10; Tidal Volume 420; Vent Rate 20
[2024-01-07 07:11] LABS: Basophils # 0.1 K/mm3 (0-0.2); Basophils % 0.8 % (0.1-2.0); Eosinophils # 0.3 K/mm3 (0.0-0.4); Eosinophils % 2.8 % (0.1-12.0); Hematocrit 40.1 % (37.0-47.0); Hemoglobin 13.3 g/dL (12.2-16.2); Lymphocytes # 1.3 K/mm3 (0.7-4.5); Lymphocytes % 12.4 % (10-50); Mean Corpuscular HGB Conc 33.2 g/dL (31.8-35.4); Mean Corpuscular Hemoglobin 35.7 pg (27.0-31.2); Mean Corpuscular Volume 107.8 fl (81-99); Mean Platelet Volume 8.2 fl (7.4-10.4); Monocytes # 0.5 K/mm3 (0.1-1.0); Monocytes % 4.6 % (1.7-9.3); Neutrophils # 8.6 K/mm3 (1.8-7.8); Neutrophils % 79.5 % (37.0-80.0); Platelet Count 124 K/mm3 (142-424); Red Blood Count 3.72 M/mm3 (4.20-5.40); Red Cell Distribution Width 15.2 % (11.5-17.5); White Blood Count 10.8 K/mm3 (4.8-10.8)
[2024-01-07 07:14] LABS: Alanine Aminotransferase 63 U/L (12-78); Albumin Level 2.5 g/dl (3.5-5.0); Albumin/Globulin Ratio 0.6 (1.1-1.8); Alkaline Phosphatase 76 U/L (38-126); Aspartate Amino Transferase 102 U/L (14-36); Bilirubin,Total 2.1 mg/dl (0.2-1.3); Blood Urea Nitrogen 37 mg/dl (7-17); Carbon Dioxide 32 mmol/L (22.0-30.0); Chloride 105 mmol/L (98-107); Creatinine Clearance Estimated 43 mL/min (50-200); Estimated Glomerular Filt Rate 23 ml/min (>60); GFR (African American) 28 ML/MIN (>60); Globulin 3.9 g/dL (1.3-3.2); Glucose 157 mg/dl (74-100); Sodium 138 mmol/L (136-145); Total Protein,Serum 6.4 g/dl (6.3-8.2)
--- NOTE | 2024-01-07 08:15 | PC.NURSE ---
COURTESY TECH NOTE; ASSISTED PRIMARY TECH WITH TURN AND REPOSITION, PT LEFT SIDE LYING. CALL LIGHT WITHIN REACH. K JENNIFER, SRNA
--- NOTE | 2024-01-07 09:45 | P.PN_ITS ---
Subjective *Date: 01/07/24 *Time: 12:44 Interval history: No acute respiratory events overnight. Improving oxygen requirements. Pulmonology Exam Inpatient Vital signs and Labs for Last 24 Hours: Temp Pulse Resp BP Pulse Ox O2 Del Method O2 Flow Rate 99.7 F H 88 20 136/83 93 L Mechanical Ventilation 40 01/07/24 08:00 01/07/24 09:00 01/07/24 09:00 01/07/24 09:00 01/07/24 09:00 01/07/24 09:00 01/06/24 04:04 FiO2 60 01/07/24 09:00 Laboratory Results - last 24 hr 01/06/24 10:54: POC Glucose 252 H 01/06/24 13:41: Fibrinogen 308, D-Dimer 1.28 H, C-Reactive Protein 18.4 H 01/06/24 16:24: POC Glucose 205 H 01/06/24 16:33: Specimen Source Right radial, O2 % 60%, ABG pH 7.43, ABG pCO2 45.6 H, ABG pO2 82.6, ABG HCO3 29.5 H, ABG Total CO2 30.9 H, ABG O2 Saturation 96, ABG Base Excess 5.2 H, Senthil Test Patient unable, Vent Rate 20, Tidal Volume 420, PEEP 10 01/06/24 22:02: POC Glucose 184 H 01/07/24 06:11: POC Glucose 192 H 01/07/24 06:46: Specimen Source l radial, O2 % 60%, ABG pH 7.47 H, ABG pCO2 42.7, ABG pO2 76.0 L, ABG HCO3 30.5 H, ABG Total CO2 31.8 H, ABG O2 Saturation 96, ABG Base Excess 6.9 H, Senthil Test acceptable, Vent Rate 20, Tidal Volume 420, PEEP 10 01/07/24 06:52: WBC 10.8 D, RBC 3.72 L, Hgb 13.3, Hct 40.1, MCV 107.8 H, MCH 35.7 H, MCHC 33.2, RDW 15.2, Plt Count 124 L D, MPV 8.2, Neut % (Auto) 79.5, Lymph % (Auto) 12.4, [place] % (Auto) 4.6, Eos % (Auto) 2.8, Baso % (Auto) 0.8, Neut # (Auto) 8.6 H, Lymph # (Auto) 1.3, [place] # (Auto) 0.5, Eos # (Auto) 0.3, Baso # (Auto) 0.1, Sodium 138, Potassium 4.0, Chloride 105, Carbon Dioxide 32 H, Anion Gap 5.0, BUN 37 H D, Creatinine 2.20 H D, Estimated Creat Clear 43, Estimated GFR 23 L, Est GFR ( Amer) 28 L D, Glucose 157 H D, Calcium 8.0 L, Magnesium 2.0, Total Bilirubin 2.1 H, AST 102 H D, ALT 63 D, Alkaline Phosphatase 76, Total Protein 6.4, Albumin 2.5 L D, Globulin 3.9 H, Albumin/Globulin Ratio 0.6 L I & O for Labs for Last 24 Hours: Intake & Output 01/04/24 01/05/24 01/06/24 01/07/24 23:59 23:59 23:59 23:59 Intake Total 1120 / 1120 1390 / 1390 858.949 / 858.949 912 / 912 Output Total 950 / 950 850 / 850 770 / 770 175 / 175 Balance 170 / 170 540 / 540 88.949 / 88.949 737 / 737 Weight 221 lb 3.001 oz 222 lb 12.8 oz 222 lb 10.67 oz 222 lb 10.67 oz Microbiology Reports for the Last 24 Hours: Microbiology 01/04/24 20:15 Nose - Nasal MRSA Culture - Final Constitutional: Present severe distress Comment:: Intubated and Sedated Head: Present normocephalic and atraumatic ENT: Present normal exam, normal oropharynx and mucous membranes moist Neck: Present normal inspection and full ROM Respiratory: Present respiratory distress, rhonchi and wheezes; Absent able to speak in complete sentences Cardiac: Present S1/S2, Tachycardia and radial pulses present GI: Present soft and distention; Absent tenderness or guarding Rectal (female): Present deferred (female): Present deferred Skin: Present intact; Absent cyanosis or jaundice Neuro: Absent alert, awake or oriented x 3 Comment:: Intubated and sedated Extremities: Present normal inspection; Absent clubbing or cyanosis Psychiatric: Present normal affect and cooperative Assessment and Plan *Assessment and plan (1) Acute hypoxic respiratory failure: Status: Acute Category: Medical Code(s): J96.01 - Acute respiratory failure with hypoxia (2) Pneumonia: Status: Acute Category: Medical Code(s): J18.9 - Pneumonia, unspecified organism (3) On mechanically assisted ventilation: Status: Acute Category: Medical Code(s): Z99.11 - Dependence on respirator [ventilator] status (4) ARDS (adult respiratory distress syndrome): Status: Acute Category: Medical Code(s): J80 - Acute respiratory distress syndrome Plan Ms. Richmond is a 66-year-old female greater than [id number] smoking history and carries a diagnosis of COPD baseline using albuterol/nebulizers presented to the ER for worsening chest pain and shortness of breath and pulmonary was called for further evaluation and management. Chest x-ray upon admission bilateral lower lobe airspace disease, left greater than right. Interstitial thickening is also noted, likely a combination of airspace disease and volume overload. Neutrophilic leukocytosis upon admission. Serum ammonia also elevated upon admission. Patient admission was initiated on BiPAP therapy. No blood gas available. On initial examination patient is awake responding to verbal commands. Weaned from BiPAP to high flow nasal cannula. Wheezing on auscutation. CTA personally reviewed, no evidence of pulmonary embolism bilateral lower lobe dense consolidative changes left greater than right. Small effusions also noted. Significant emphysematous changes also noted. Calcified lymphadenopathy noted. Patient experienced significant respiratory distress overnight on 01/22/2024 needing intubation and mechanical ventilatory support. Interval update: Chest x-ray no significant change and continues show bilateral opacities. Continue to receive Zosyn and azithromycin. Improving leukocytosis. Continue to see methylprednisone 40 every 12 hours. CRP elevated at 18.4. Pending SPENCER screen strep Legionella and strongyloidiasis antibody. Plan: -Continue mechanical ventilatory support, currently on propofol and fentanyl. Wean sedation to facilitate SBT. -Improving ventilator settings, weaned to PEEP of 8 FiO2 of 40%. Change antibiotic to Zosyn and Azithromycin Pending bronchoscopy and sputum culture results, blood culture results and nasal MRSA PCR Follow with CRP, SPENCER screen, Strongyloides antibody urine strep and Legionella antigens Initiate methylprednisolone 40 every 12 hours DuoNebs Q6 and pulmicort Q12 scheduled Hemodynamically un stable. On pressors. Will continue norepinephrine with MAP goal of greater than 65. CT imaging concerned for cirrhotic morphology of liver with portal hypertension. Abdomen soft nontender. AST ALT improving. Will closely monitor. Will monitor closely. Recommend initiating tube feeds. Hematuria improved. Worsening renal function, creatinine now at 2.20. Oliguric ANAHI. Will closely monitor. - Continue mechanical ventilatory support - Continue AnalgoSedation with Propofol and Fentanyl with CPOT gal less than or equal to 2 and RASS goal of to 2 (No need for deep sedation) - VAP bundle Recommend elevate head of the bed at 30 to 45 degrees Recommend oral care with chlorhexidne Recommend GI ulcer prophylaxis - Famotidine 20mg IV BID Recommend chemical DVT prophylaxis Total critical care time spent on this patient is 35 minutes managing acute hypoxic respiratory failure needing mechanical ventilation. This time spent include reviewing test results including interpreting chest x-rays, labs and arterial blood gas, optimizing the ventilator settings,formulating plan of care, discussing the plan of care with the team and the nursing staff.
--- NOTE | 2024-01-07 09:51 | P.PN_ITS ---
Subjective Subjective Date: 01/07/24 Time: 08:00 Principal diagnosis: NSTEMI, COPD exacerbation, pneumonia Interval history: Patient remains intubated, sedated and on Levophed. Has had decreased urine output. Morning labs reviewed. Exam Data for Last 24 hours Vital signs and Labs for Last 24 Hours: Temp Pulse Resp BP Pulse Ox O2 Del Method O2 Flow Rate 99.7 F H 88 20 136/83 93 L Mechanical Ventilation 40 01/07/24 08:00 01/07/24 09:00 01/07/24 09:00 01/07/24 09:00 01/07/24 09:00 01/07/24 09:00 01/06/24 04:04 FiO2 60 01/07/24 09:00 Laboratory Results - last 24 hr 01/06/24 10:54: POC Glucose 252 H 01/06/24 13:41: Fibrinogen 308, D-Dimer 1.28 H, C-Reactive Protein 18.4 H 01/06/24 16:24: POC Glucose 205 H 01/06/24 16:33: Specimen Source Right radial, O2 % 60%, ABG pH 7.43, ABG pCO2 45.6 H, ABG pO2 82.6, ABG HCO3 29.5 H, ABG Total CO2 30.9 H, ABG O2 Saturation 96, ABG Base Excess 5.2 H, Senthil Test Patient unable, Vent Rate 20, Tidal Volume 420, PEEP 10 01/06/24 22:02: POC Glucose 184 H 01/07/24 06:11: POC Glucose 192 H 01/07/24 06:46: Specimen Source l radial, O2 % 60%, ABG pH 7.47 H, ABG pCO2 42.7, ABG pO2 76.0 L, ABG HCO3 30.5 H, ABG Total CO2 31.8 H, ABG O2 Saturation 96, ABG Base Excess 6.9 H, Senthil Test acceptable, Vent Rate 20, Tidal Volume 420, PEEP 10 01/07/24 06:52: WBC 10.8 D, RBC 3.72 L, Hgb 13.3, Hct 40.1, MCV 107.8 H, MCH 35.7 H, MCHC 33.2, RDW 15.2, Plt Count 124 L D, MPV 8.2, Neut % (Auto) 79.5, Lymph % (Auto) 12.4, [place] % (Auto) 4.6, Eos % (Auto) 2.8, Baso % (Auto) 0.8, Neut # (Auto) 8.6 H, Lymph # (Auto) 1.3, [place] # (Auto) 0.5, Eos # (Auto) 0.3, Baso # (Auto) 0.1, Sodium 138, Potassium 4.0, Chloride 105, Carbon Dioxide 32 H, Anion Gap 5.0, BUN 37 H D, Creatinine 2.20 H D, Estimated Creat Clear 43, Estimated GFR 23 L, Est GFR ( Amer) 28 L D, Glucose 157 H D, Calcium 8.0 L, Magnesium 2.0, Total Bilirubin 2.1 H, AST 102 H D, ALT 63 D, Alkaline Phosphatase 76, Total Protein 6.4, Albumin 2.5 L D, Globulin 3.9 H, Albumin/Globulin Ratio 0.6 L I & O for Last 24 hours: Intake & Output 01/04/24 01/05/24 01/06/24 01/07/24 23:59 23:59 23:59 23:59 Intake Total 1120 / 1120 1390 / 1390 858.949 / 858.949 912 / 912 Output Total 950 / 950 850 / 850 770 / 770 175 / 175 Balance 170 / 170 540 / 540 88.949 / 88.949 737 / 737 Weight 221 lb 3.001 oz 222 lb 12.8 oz 222 lb 10.67 oz 222 lb 10.67 oz Microbiology Reports for the Last 24 Hours: Microbiology 01/04/24 20:15 Nose - Nasal MRSA Culture - Final *Routine Respiratory Exam Respiratory: Present wheezes and symmetric chest movement Comments: Patient is intubated *Routine Cardiovascular Exam Cardiovascular: Present Normal S1 and Normal S2 *Routine Extremities Exam Comments: Mild lower extremity edema present Progress Note: A&P Assessment and plan (1) Acute hypoxic respiratory failure: Status: Acute (2) Pneumonia: Status: Acute (3) On mechanically assisted ventilation: Status: Acute (4) ARDS (adult respiratory distress syndrome): Status: Acute Assessment and Plan Assessment and Plan for All Diagnoses:: NSTEMi -Elevated trop at [facility], first trop here is 1.05. -EKG is negative for acute ischemic changes -Was on Lovenox 1mg/kg but is now on hold due to bleeding -No planned intervention at this time due to respiratory failure/bleeding -Aspirin and plavix on hold. -Statin on hold due to elevated liver enzymes Chronic HFpEF RV dilation with mild reduction in function -Echo shows normal EF with moderate RV dilation and mild reduction in function. mild MR. mild to moderate TR. RVSP 25-30. Repeat limited echo status post intubation is essentially unchanged with exception of hyperdynamic ventricle. Will give a one-time 250 mL normal saline bolus. -Will consider addition of jardiance at later date. Acute hypoxic respiratory failure-requiring intubation Bilateral lower lobe consolidation concerning for pneumonia Elevated D-dimer Sepsis -Originally requiring BiPAP, then was weaned to Vapotherm shortly after arrival to the hospital. Patient developed worsening hypoxic respiratory failure requiring intervention 01/05. -CTA chest 01/03 was negative for PE with bilateral lower lobe consolidation and alveolar opacities worrisome for pneumonia. -Recently dx with step at home -Pulmonology is following. Patient underwent bronchoscopy yesterday morning, will defer IV antibiotic selection, pneumonia and mechanical ventilation management to pulmonology. Acute kidney injury -Creatinine elevated to 2.2. Will give normal saline 250 mL bolus x 1. Hematuria-improving Nose bleed-improving Elevated liver enzymes-improving Cirrhosis -Platelets 124, INR 1.18, total bili 2.1, AST 102, ALT 60, fibrinogen 308 -Holding dapt therapy and lovenox due to recent bleeding -Cirrhosis with portal hypertension noted on cta -Defer to primary service and pulmonology Tobacco use -Smoking cessation advised History of hypertension with current hypotension -Currently hypotensive requiring Levophed -Will give a one-time normal saline bolus of 250 mL Diabetes mellitus Hyperglycemia -Defer to primary service CV summary 01/07/2024: Patient remains intubated and sedated requiring Levophed to maintain MAP. Repeat limited echo shows a hyperdynamic ventricle. Decreased urinary output noted. Creatinine elevated to 2.2 today. Will give a one-time normal saline 250 mL bolus.
[2024-01-07 11:23] LABS: NT Pro Brain Natriuretic Pep. 2580 pg/mL (0-125)
[2024-01-07 11:48] LABS: POC Glucose,Bedside 188 (70-110)
--- NOTE | 2024-01-07 12:00 | PC.NURSE ---
Late Entry: pt ring placed in specimen cup and placed in pt bag in front of pt erasmo Shelby.
--- NOTE | 2024-01-07 12:42 | PC.NURSE ---
RESP CARE NOTE: Per Dr Quinn, weaned FIO2 to 40% and PEEP to 8 cmH20. Possible SBT later today or tommorrow morning.
[2024-01-07] MEDS: METHYLPREDNISOLONE SOD SUCC 40MG VIAL 40 MG IV (14:21)
[2024-01-07] MEDS: 0.9 % SODIUM CHLORIDE 1000ML 500 ML 250 ML IV (14:21)
[2024-01-07] MEDS: propofoL 100 ML 9.09999999999999964 MG IV (15:30)
[2024-01-07] MEDS: NICOTINE 7MG/24HRS PATCH 7 MG TD (15:33)
[2024-01-07] MEDS: NOREPINEPHRINE BITARTRATE/D5W 8 MG/250 ML PLAST..BAG 7.5 MG IV (15:34)
[2024-01-07] MEDS: AZITHROMYCIN 500 MG in 0.9 % SODIUM CHLORIDE 250 ML 250 MG IV (16:07)
[2024-01-07 17:34] LABS: Chloride 105 mmol/L (98-107); Potassium 4.5 mmoL/L (3.5-5.1); Sodium 137 mmol/L (136-145)
[2024-01-07 17:37] LABS: Anion Gap 9.5 mEq/L (5-15); Blood Urea Nitrogen 42 mg/dl (7-17); Calcium 8.2 mg/dl (8.4-10.2); Carbon Dioxide 27 mmol/L (22.0-30.0); Creatinine Clearance Estimated 37 mL/min (50-200); Estimated Glomerular Filt Rate 19 ml/min (>60); GFR (African American) 23 ML/MIN (>60); Glucose 205 mg/dl (74-100)
[2024-01-07 17:46] LABS: POC Glucose,Bedside 198 (70-110)
--- NOTE | 2024-01-07 18:35 | PC.NURSE ---
pt sedation stopped for SBT that began at 1620. ended at 1742. pt tolerated well
[2024-01-07 22:35] LABS: POC Glucose,Bedside 270 (70-110)
[2024-01-08] VITALS (42 sets, daily range): BP systolic 79–152; BP diastolic 51–90; PULSE 64–90; RESP 18–23; TEMP 36.3–36.9; O2SAT 88–97; BMI 37.5
[2024-01-08] MEDS: FENTANYL CITRATE/PF 1,000 MCG in 0.9 % SODIUM CHLORIDE 80 ML 7.5 MCG IV ×2 (00:08→12:29)
[2024-01-08] MEDS: propofoL 100 ML 18.1900000000000013 MG IV ×2 (00:10→06:57)
--- NOTE | 2024-01-08 01:05 | PC.NURSE ---
RESP CARE NOTE: Pt desatted while RN and BUSINESS PLANNING ANALYST moved OG tube. Pt was not able to recover and the FiO2 had to be moved to 60% to maintain sats of 90% and greater
[2024-01-08] MEDS: METHYLPREDNISOLONE SOD SUCC 40MG VIAL 40 MG IV ×2 (01:29→14:35)
[2024-01-08] MEDS: PIPERACILLIN/TAZO 4.5 GM in 0.9 % SODIUM CHLORIDE 100 ML IV ×4 (01:29→20:25)
[2024-01-08 05:30] LABS: POC Glucose,Bedside 275 (70-110)
[2024-01-08] MEDS: humaLOG 100 UNITS/ML 3ML VIAL (SSI) SQ ×4 (05:31→21:06)
--- NOTE | 2024-01-08 06:00 | XR_ITS ---
PROCEDURE INFORMATION: Exam: XR Chest Exam date and time: 01/08/2024 5:39 AM Age: 58 years old Clinical indication: Other: Pneumonia mechanical ventilation TECHNIQUE: Imaging protocol: Radiologic exam of the chest. Views: 1 view. COMPARISON: CR XR CHEST PORTABLE 01/07/2024 5:38 AM FINDINGS: Tubes, catheters and devices: The patient is intubated. The endotracheal tube tip is seen 5.2 cm above the nayeli. There is an enteric tube projecting into the left upper quadrant. Lungs: Bilateral pulmonary infiltrates left greater than right are without significant change. Pleural spaces: There is no pneumothorax. Heart/Mediastinum: Unremarkable. No cardiomegaly. Bones/joints: Unremarkable. IMPRESSION: Bilateral pulmonary infiltrates left greater than right without significant change.
[2024-01-08] MEDS: IPRATROPIUM/ALBUTEROL 3 ML NEB IH ×4 (06:43→23:20)
[2024-01-08] MEDS: BUDESONIDE 0.5MG/2ML NEB 0.5 MG IH ×2 (06:43→18:06)
[2024-01-08 08:59] LABS: Basophils # 0.1 K/mm3 (0-0.2); Basophils % 0.3 % (0.1-2.0); Eosinophils % 0.2 % (0.1-12.0); Hematocrit 40.3 % (37.0-47.0); Hemoglobin 13.2 g/dL (12.2-16.2); Lymphocytes # 0.7 K/mm3 (0.7-4.5); Lymphocytes % 4.8 % (10-50); Mean Corpuscular HGB Conc 32.9 g/dL (31.8-35.4); Mean Corpuscular Hemoglobin 35.8 pg (27.0-31.2); Mean Corpuscular Volume 109.1 fl (81-99); Mean Platelet Volume 8.5 fl (7.4-10.4); Monocytes # 0.2 K/mm3 (0.1-1.0); Monocytes % 1.7 % (1.7-9.3); Neutrophils # 13.3 K/mm3 (1.8-7.8); Neutrophils % 93.1 % (37.0-80.0); Platelet Count 128 K/mm3 (142-424); Red Blood Count 3.69 M/mm3 (4.20-5.40); Red Cell Distribution Width 15.3 % (11.5-17.5); White Blood Count 14.3 K/mm3 (4.8-10.8)
[2024-01-08 09:02] LABS: Chloride 105 mmol/L (98-107); MANUAL DIFFERENTIAL MANUAL DIFFERENTIAL (MANUAL DIFF)
[2024-01-08 09:03] LABS: Potassium 4.1 mmoL/L (3.5-5.1); Sodium 135 mmol/L (136-145)
[2024-01-08 09:05] LABS: Alanine Aminotransferase 54 U/L (12-78); Albumin Level 2.6 g/dl (3.5-5.0); Alkaline Phosphatase 80 U/L (38-126); Anion Gap 6.1 mEq/L (5-15); Aspartate Amino Transferase 77 U/L (14-36); Bilirubin,Total 2.1 mg/dl (0.2-1.3); Blood Urea Nitrogen 52 mg/dl (7-17); Carbon Dioxide 28 mmol/L (22.0-30.0); Creatinine Clearance Estimated 34 mL/min (50-200); Estimated Glomerular Filt Rate 17 ml/min (>60); GFR (African American) 21 ML/MIN (>60)
[2024-01-08 09:06] LABS: Albumin/Globulin Ratio 0.7 (1.1-1.8); Calcium 8.1 mg/dl (8.4-10.2); Globulin 3.9 g/dL (1.3-3.2); Glucose 313 mg/dl (74-100); Magnesium 2.2 mg/dl (1.6-2.3); Total Protein,Serum 6.5 g/dl (6.3-8.2)
--- NOTE | 2024-01-08 09:48 | PC.NURSE ---
Addendum entered by MAVIS French 01/08/24 09:56: <10mL Original Note: patients residual was pulled and was >10mL. Tube feeding was increased to 50mL/hr.
--- NOTE | 2024-01-08 10:04 | PC.NURSE ---
Pt erasmo Shelby requested staff call when starting SBT. attempted to call at 1000. no answer, no vm
[2024-01-08 10:30] LABS: Lymphocytes % 7 % (10-50); Monocytes % 1 % (2-9); Neutrophils % 92 % (42-76); Total Cells Counted 100
[2024-01-08 10:31] LABS: Macrocytosis 2+; Platelet Estimate Slight Decrease
[2024-01-08] MEDS: propofoL 100 ML 9.09999999999999964 MG IV (12:29)
[2024-01-08] MEDS: NICOTINE 7MG/24HRS PATCH 7 MG TD (15:15)
[2024-01-08] MEDS: AZITHROMYCIN 500 MG in 0.9 % SODIUM CHLORIDE 250 ML 250 MG IV (15:15)
--- NOTE | 2024-01-08 16:33 | EXP.PN ---
Subjective *Date: 01/08/24 *Time: 16:33 Interval history: patient is seen at bedside, patient is undergoing SBT trial, off sedation, alert awake, responding appropriately Exam Data for Last 24 hours Vital signs and Labs for Last 24 Hours: Temp Pulse Resp BP Pulse Ox O2 Del Method O2 Flow Rate 97.4 F L 74 20 100/68 L 94 L Mechanical Ventilation 93 01/08/24 15:40 01/08/24 16:00 01/08/24 16:00 01/08/24 16:00 01/08/24 16:00 01/08/24 16:00 01/08/24 10:47 FiO2 40 01/08/24 14:50 Laboratory Results - last 24 hr 01/07/24 17:06: Sodium 137, Potassium 4.5, Chloride 105, Carbon Dioxide 27, Anion Gap 9.5, BUN 42 H, Creatinine 2.60 H, Estimated Creat Clear 37, Estimated GFR 19 L*, Est GFR ( Amer) 23 L, Glucose 205 H D, Calcium 8.2 L 01/07/24 17:21: POC Glucose 198 H 01/07/24 21:49: POC Glucose 270 H 01/08/24 05:22: POC Glucose 275 H 01/08/24 08:19: WBC 14.3 H D, RBC 3.69 L, Hgb 13.2, Hct 40.3, MCV 109.1 H, MCH 35.8 H, MCHC 32.9, RDW 15.3, Plt Count 128 L, MPV 8.5, Neut % (Auto) 93.1 H, Lymph % (Auto) 4.8 L, [place] % (Auto) 1.7, Eos % (Auto) 0.2, Baso % (Auto) 0.3, Neut # (Auto) 13.3 H, Lymph # (Auto) 0.7, [place] # (Auto) 0.2, Eos # (Auto) 0.0, Baso # (Auto) 0.1, Total Counted 100, Neutrophils % (Manual) 92 H, Lymphocytes % (Manual) 7 L, Monocytes % (Manual) 1 L, Platelet Estimate Slight decrease, Macrocytosis 2+, Sodium 135 L, Potassium 4.1, Chloride 105, Carbon Dioxide 28, Anion Gap 6.1, BUN 52 H, Creatinine 2.80 H, Estimated Creat Clear 34, Estimated GFR 17 L*, Est GFR ( Amer) 21 L, Glucose 313 H D, Calcium 8.1 L, Magnesium 2.2, Total Bilirubin 2.1 H, AST 77 H, ALT 54, Alkaline Phosphatase 80, Total Protein 6.5, Albumin 2.6 L, Globulin 3.9 H, Albumin/Globulin Ratio 0.7 L I & O for Last 24 hours: Intake & Output 01/05/24 01/06/24 01/07/24 01/08/24 23:59 23:59 23:59 23:59 Intake Total 1390 / 1390 858.949 / 941.359 4900.734 / 2485.734 1951.720 / 1951.720 Output Total 850 / 850 770 / 770 1500 / 1500 950 / 950 Balance 540 / 540 88.949 / 88.949 985.734 / 218.883 0190.720 / 1001.720 Weight 101.06 kg 101 kg 101 kg 102.194 kg Microbiology Reports for the Last 24 Hours: Microbiology 01/06/24 11:15 Bronchial Washings - Left Lower Lobe Gram Stain - Final 01/06/24 05:00 Sputum - Endotracheal Tube Aspirate Gram Stain - Final 01/05/24 13:41 Sputum - Expectorated Sputum Gram Stain - Final Constitutional Comments: intubated *Routine HEENT Exam Head: Present normocephalic Eye: Present EOMI and PERRL ENT: Present mucous membranes moist *Routine Neck Exam Neck: Present supple; Absent lymphadenopathy *Routine Respiratory Exam Respiratory: Present diminished air movement Comments: mechanical breathing sounds *Routine Cardiovascular Exam Cardiovascular: Present RRR *Routine Abdominal Exam Abdominal: Present soft and normoactive bowel sounds; Absent tenderness *Routine Extremities Exam Extremities: Absent cyanosis, clubbing or edema *Routine Skin Exam Skin: Present warm; Absent rash *Routine Neurological Exam Neurological: Present alert and oriented X3 Assessment and Plan *Assessment and plan (1) Pneumonia: Status: Acute Category: Medical Code(s): J18.9 - Pneumonia, unspecified organism (2) Acute hypoxic respiratory failure: Status: Acute Category: Medical Code(s): J96.01 - Acute respiratory failure with hypoxia (3) Elevated troponin: Status: Acute Category: Medical Code(s): R79.89 - Other specified abnormal findings of blood chemistry Plan Patient is a 58-year-old female with past medical history of diabetes mellitus, active tobacco use, hypertension who presented to hospital due to chest pain/shortness of breath. Patient was found to have elevated troponin, patient was referred to [facility] for possible NSTEMI. Assessment and plan Acute hypoxic respiratory failure satting less than 90% on room air s/p intubation Suspect acute CHF Elevated troponin at previous facility, suspect NSTEMI leukocytosis Monitor on cardiac telemetry intubated, undergoing SBT Consult cardiology, consult pulmonary-appreciate recommendations - plan for cardiac cath as OP NSTEMI start 40 IV twice daily Lasix, patient denies being on Lasix at home was started on Azithromycin and zosyn Hyperglycemia due to uncontrolled diabetes mellitus start insulin sliding scale Long-acting insulin Tobacco use - nicotine patch Hypotension- off of levophed now Monitor DVT prophylaxis-continue IV heparin wean off vent, pulmonary following, SBT trails, continue IV abx - Azithromycin and zosyn
[2024-01-08 16:56] LABS: POC Glucose,Bedside 313 (70-110)
[2024-01-08 16:56] LABS: POC Glucose,Bedside 341 (70-110)
--- NOTE | 2024-01-08 17:30 | PC.NURSE ---
pts residual was checked, less than 10mL was pulled. No increase in the tube feeding as she is at her goal rate of 50mL/hr.
[2024-01-08] MEDS: propofoL 100 ML 12.1300000000000008 MG IV (18:19)
--- NOTE | 2024-01-08 18:24 | PC.NURSE ---
All care and documentation performed by Loren Branch SN/MAVIS was completed under by direct supervision. Pat Thapa RN
[2024-01-09] VITALS (42 sets, daily range): BP systolic 89–134; BP diastolic 52–94; PULSE 66–92; RESP 20–25; TEMP 36.5–36.9; O2SAT 88–97; BMI 37.5
[2024-01-09] MEDS: propofoL 100 ML 18.1900000000000013 MG IV ×4 (00:25→19:43)
[2024-01-09] MEDS: METHYLPREDNISOLONE SOD SUCC 40MG VIAL 40 MG IV ×2 (01:38→14:33)
[2024-01-09] MEDS: PIPERACILLIN/TAZO 4.5 GM in 0.9 % SODIUM CHLORIDE 100 ML IV ×3 (01:50→18:00)
[2024-01-09] MEDS: FENTANYL CITRATE/PF 1,000 MCG in 0.9 % SODIUM CHLORIDE 80 ML 7.5 MCG IV (01:54)
[2024-01-09] MEDS: NOREPINEPHRINE BITARTRATE/D5W 8 MG/250 ML PLAST..BAG 3.75 MG IV (04:21)
[2024-01-09 05:52] LABS: POC Glucose,Bedside 357 (70-110)
[2024-01-09] MEDS: humaLOG 100 UNITS/ML 3ML VIAL (SSI) SQ ×4 (06:00→21:18)
--- NOTE | 2024-01-09 06:00 | XR_ITS ---
PROCEDURE INFORMATION: Exam: XR Chest Exam date and time: 01/09/2024 5:20 AM Age: 58 years old Clinical indication: Device placement; Ett placement (vent status); Additional info: Pneumonia mechanical ventilation TECHNIQUE: Imaging protocol: Radiologic exam of the chest. Views: 1 view. COMPARISON: CR XR CHEST PORTABLE 01/08/2024 5:39 AM FINDINGS: Tubes, catheters and devices: The patient is intubated. The endotracheal tube tip is seen 5.8 cm above the nayeli. There is an enteric tube projecting into the left upper quadrant. Lungs: Similar appearing bilateral pulmonary infiltrates and effusions are identified. Pleural spaces: There is no pneumothorax. Heart/Mediastinum: The heart size is not well assessed. Bones/joints: Unremarkable. IMPRESSION: Similar appearing bilateral pulmonary infiltrates and effusions.
[2024-01-09 06:02] LABS: POC Glucose,Bedside 413 (70-110)
[2024-01-09] MEDS: BUDESONIDE 0.5MG/2ML NEB 0.5 MG IH ×2 (06:18→17:29)
[2024-01-09] MEDS: IPRATROPIUM/ALBUTEROL 3 ML NEB IH ×4 (06:18→23:56)
[2024-01-09 07:42] LABS: Alanine Aminotransferase 44 U/L (12-78); Albumin Level 2.8 g/dl (3.5-5.0); Albumin/Globulin Ratio 0.7 (1.1-1.8); Alkaline Phosphatase 91 U/L (38-126); Anion Gap 10.5 mEq/L (5-15); Aspartate Amino Transferase 52 U/L (14-36); Blood Urea Nitrogen 61 mg/dl (7-17); Calcium 8.2 mg/dl (8.4-10.2); Carbon Dioxide 27 mmol/L (22.0-30.0); Chloride 103 mmol/L (98-107); Creatinine Clearance Estimated 32 mL/min (50-200); Estimated Glomerular Filt Rate 16 ml/min (>60); GFR (African American) 19 ML/MIN (>60); Glucose 387 mg/dl (74-100); Potassium 4.5 mmoL/L (3.5-5.1); Sodium 136 mmol/L (136-145); Total Protein,Serum 6.8 g/dl (6.3-8.2)
[2024-01-09] MEDS: propofoL 100 ML 21.2199999999999989 MG IV (09:16)
--- NOTE | 2024-01-09 09:47 | PC.NURSE ---
late entry: at start of shift, drips infusing as follows: Fentanyl 75 mcg Levophed 4mcg Propofol 35mcg
--- NOTE | 2024-01-09 10:13 | P.PN_ITS ---
Subjective *Date: 01/09/24 *Time: 10:13 Medical Exam Vital signs and Labs for Last 24 Hours: Vital Signs Temp Pulse Pulse Resp BP Pulse Ox O2 Del Method 01/09/24 09:00 Mechanical Ventilation 01/09/24 09:00 98.2 F 67 20 101/68 L 92 L Mechanical Ventilation 01/09/24 08:29 98.2 F 01/09/24 08:00 69 91 L Mechanical Ventilation 01/09/24 08:00 70 01/09/24 07:00 Mechanical Ventilation 01/09/24 07:00 66 20 115/73 91 L Mechanical Ventilation 01/09/24 06:20 72 01/09/24 06:20 68 01/09/24 06:20 20 91 L 01/09/24 06:00 71 20 115/73 94 L Mechanical Ventilation 01/09/24 05:00 71 20 120/81 92 L Mechanical Ventilation 01/09/24 04:00 70 01/09/24 04:00 71 20 90 L Mechanical Ventilation 01/09/24 04:00 71 20 107/67 L 90 L Mechanical Ventilation 01/09/24 03:00 72 20 89/53 L 91 L Mechanical Ventilation 01/09/24 02:00 69 20 101/59 L 88 L Mechanical Ventilation 01/09/24 01:00 70 20 113/73 92 L Mechanical Ventilation 01/09/24 00:00 73 01/09/24 00:00 92 L Mechanical Ventilation 01/09/24 00:00 73 20 113/77 92 L Mechanical Ventilation 01/08/24 23:19 71 01/08/24 23:19 70 01/08/24 23:19 90 L 01/08/24 23:00 69 20 123/83 90 L Mechanical Ventilation 01/08/24 22:00 68 20 88/58 L 91 L Mechanical Ventilation 01/08/24 21:31 20 90 L 01/08/24 21:00 66 20 91/60 L 93 L Mechanical Ventilation 01/08/24 20:00 68 01/08/24 20:00 68 20 89 L Mechanical Ventilation 01/08/24 20:00 98.1 F 67 20 102/65 L 90 L Mechanical Ventilation 01/08/24 19:00 67 20 93/63 L 88 L Mechanical Ventilation 01/08/24 18:35 Mechanical Ventilation 01/08/24 18:06 69 01/08/24 18:06 71 01/08/24 18:06 01/08/24 18:00 68 20 97/66 L 93 L Mechanical Ventilation 01/08/24 17:52 90 L 01/08/24 17:00 70 20 91/58 L 90 L Mechanical Ventilation 01/08/24 17:00 Mechanical Ventilation 01/08/24 16:00 70 01/08/24 16:00 70 90 L Mechanical Ventilation 01/08/24 16:00 74 20 100/68 L 94 L Mechanical Ventilation 01/08/24 15:40 97.4 F L 01/08/24 15:00 71 20 119/78 95 Mechanical Ventilation 01/08/24 15:00 Mechanical Ventilation 01/08/24 14:50 20 95 01/08/24 14:00 73 20 116/78 97 Mechanical Ventilation 01/08/24 13:00 Mechanical Ventilation 01/08/24 13:00 73 20 132/86 97 Mechanical Ventilation 01/08/24 12:30 77 97 Mechanical Ventilation 01/08/24 12:30 77 20 152/90 H 97 Mechanical Ventilation 01/08/24 12:15 79 01/08/24 12:15 77 01/08/24 12:15 23 97 01/08/24 12:00 90 01/08/24 11:30 98.1 F 01/08/24 11:00 Mechanical Ventilation 01/08/24 11:00 81 22 143/88 H 96 Mechanical Ventilation 01/08/24 10:47 01/08/24 10:15 95 O2 Flow Rate FiO2 01/09/24 09:00 01/09/24 09:00 01/09/24 08:29 01/09/24 08:00 40 01/09/24 08:00 01/09/24 07:00 01/09/24 07:00 40 01/09/24 06:20 01/09/24 06:20 01/09/24 06:20 40 01/09/24 06:00 40 01/09/24 05:00 40 01/09/24 04:00 01/09/24 04:00 40 01/09/24 04:00 40 01/09/24 03:00 40 01/09/24 02:00 40 01/09/24 01:00 40 01/09/24 00:00 01/09/24 00:00 40 01/09/24 00:00 40 01/08/24 23:19 01/08/24 23:19 01/08/24 23:19 01/08/24 23:00 40 01/08/24 22:00 40 01/08/24 21:31 40 01/08/24 21:00 40 01/08/24 20:00 01/08/24 20:00 40 01/08/24 20:00 40 01/08/24 19:00 01/08/24 18:35 01/08/24 18:06 01/08/24 18:06 01/08/24 18:06 40 40 01/08/24 18:00 01/08/24 17:52 40 01/08/24 17:00 01/08/24 17:00 01/08/24 16:00 01/08/24 16:00 01/08/24 16:00 01/08/24 15:40 01/08/24 15:00 01/08/24 15:00 01/08/24 14:50 40 01/08/24 14:00 01/08/24 13:00 01/08/24 13:00 01/08/24 12:30 40 01/08/24 12:30 01/08/24 12:15 01/08/24 12:15 01/08/24 12:15 50 01/08/24 12:00 01/08/24 11:30 01/08/24 11:00 01/08/24 11:00 01/08/24 10:47 93 50 01/08/24 10:15 50 Intake and Output 01/08/24 01/09/24 01/09/24 23:59 07:59 15:59 Intake Total 901.447 / 2953.167 1624.875 / 2020.002 395.127 / 2020.002 Output Total 140 / 1390 675 / 825 150 / 825 Balance 761.447 / 1563.167 949.875 / 1195.002 245.127 / 1195.002 Intake: Intake, Oral Amount 0 / 0 0 / 0 0 / 0 Intake, Tube Feeding Amount 130 / 749 554 / 697 143 / 697 Intake, Tube Irrigant Amount 150 / 325 350 / 500 150 / 500 Intake, Total IV Amount 621.447 / 1879.167 720.875 / 823.002 102.127 / 823.002 Azithromycin 500 mg In 0.9 % 250 / 250 Sodium Chloride 250 ml @ 250 mls/hr IV Q24H [facility] Rx#:[id number] Fentanyl Citrate/Pf 1,000 mcg 10 / 151 88 / 88 In 0.9 % Sodium Chloride 80 ml @ 100 MCG/HR 10 mls/hr IV .Q10H [facility] Rx#:[id number] Norepinephrine Bitartrate/D5w 8 5 / 108 67 / 67 mg In 250 ml @ 8 MCG/MIN 15 mls/hr IV .[id number] [facility] Rx#: [id number] Piperacillin/Tazo 4.5 gm In 0.9 100 / 400 200 / 200 % Sodium Chloride 100 ml @ 200 mls/hr IV Q6H [facility] Rx#:[id number] propofoL 100 ml @ 5 MCG/KG/MIN 25 / 293 210 / 210 3.032 mls/hr IV .Q24H [facility] Rx#: [id number] Output: Output, Urine Amount 0 / 35 225 / 225 0 / 225 Output, Urine Amount (Catheter) 140 / 1355 450 / 600 150 / 600 [place] 140 / 1355 450 / 600 150 / 600 Other: Number of Unmeasured Voids 0 0 Weight 102.194 kg Patient Weight 01/09/24 23:59 Weight 102.194 kg Laboratory Results - last 24 hr 01/08/24 08:19: Total Counted 100, Neutrophils % (Manual) 92 H, Lymphocytes % (Manual) 7 L, Monocytes % (Manual) 1 L, Platelet Estimate Slight decrease, Macrocytosis 2+ 01/08/24 11:00: POC Glucose 313 H* 01/08/24 16:47: POC Glucose 341 H* 01/08/24 20:59: POC Glucose 357 H* 01/09/24 05:43: POC Glucose 413 H* 01/09/24 06:25: Sodium 136, Potassium 4.5, Chloride 103, Carbon Dioxide 27, An ion Gap 10.5, BUN 61 H, Creatinine 3.00 H, Estimated Creat Clear 32, Estimated GFR 16 L*, Est GFR ( Amer) 19 L*, Glucose 387 H D, Calcium 8.2 L, Total Bilirubin 2.0 H, AST 52 H D, ALT 44, Alkaline Phosphatase 91, Total Protein 6.8, Albumin 2.8 L, Globulin 4.0 H, Albumin/Globulin Ratio 0.7 L I & O for Labs for Last 24 Hours: Intake & Output 01/06/24 01/07/24 01/08/24 01/09/24 23:59 23:59 23:59 23:59 Intake Total 858.949 / 882.031 3858.734 / 2485.734 2853.167 / 2953.167 2020.002 / 2020.002 Output Total 770 / 770 1500 / 1500 1090 / 1390 825 / 825 Balance 88.949 / 88.949 985.734 / 437.138 9301.167 / 3701.707 3594.002 / 1195.002 Weight 101 kg 101 kg 102.194 kg 102.194 kg Microbiology Reports for the Last 24 Hours: Microbiology 01/06/24 11:15 Bronchial Washings - Left Lower Lobe Gram Stain - Final 01/06/24 11:15 Bronchial Washings - Left Lower Lobe Bronchoalveolar Lavage Culture - Preliminary 01/06/24 05:00 Sputum - Endotracheal Tube Aspirate Gram Stain - Final 01/05/24 13:41 Sputum - Expectorated Sputum Gram Stain - Final The patient's infection will respond to the chosen ABx?: Yes Is the patient receiving the right drug, dose, and route?: Yes Could a more targeted ABx be ordered?: No
[2024-01-09] MEDS: NOREPINEPHRINE BITARTRATE/D5W 8 MG/250 ML PLAST..BAG 7.5 MG IV (10:45)
[2024-01-09 11:11] LABS: POC Glucose,Bedside 371 (70-110)
[2024-01-09] MEDS: HEPARIN SODIUM 5,000 UNIT/ML VIAL 5000 UNIT SQ ×2 (11:17→20:17)
--- NOTE | 2024-01-09 11:53 | DIET.NUTRFU ---
Patient is tolerating tubefeeding at goal rate of 50ml/hr providing 100% nutritional needs. 50ml/hr x 24 dxvlb=1899ur/1920kcal/82.6gm protein and 1036ml free water+150 [id number] flush/day= total fluid 1936ml/day nutritional needs are 2000kcal/80-90gm protein/2000ml day. BS elevated, insulin in place. May need consider diabetic formula if continues to have elevated BS. BUN and CR elevated with lasix given 01/05. SBT was trialed 01/06 without success. Once extubated evaluate by HUMAN RESOURCES TALENT MANAGER to determine safe oral diet. Propofol continues for sedation, 01/07 received [id number] therefore total calories of 2242kcal/day or 21kcal/kg. No changes at this time. No bolus fluids at this time. Will continue current POC
--- NOTE | 2024-01-09 12:26 | PC.NURSE ---
1115 tube feed changed to Glucerna with a rate of 30ml/hr (goal rate to be 45ml)
--- NOTE | 2024-01-09 13:41 | PC.NURSE ---
Addendum entered by Pat Thapa RN 01/09/24 15:06: SBT ended at 1445 when communicating with pt, she indicated to staff that she wanted to have the machine breathe for her again and wanted to go back to sleep. sedation turned back on at this time and changed back to rate. peep still at 6 fio2 40% Original Note: pt sedation turned off at 1314. SBT started at 1340 by A Vignesh and Ute Sanders. peep decreased to 6
--- NOTE | 2024-01-09 14:12 | EXP.PN ---
Subjective *Date: 01/09/24 *Time: 14:12 Interval history: patient is seen at bedside, patient is intubated and sedated, discussed with RN, plan for SBT trial today Exam Data for Last 24 hours Vital signs and Labs for Last 24 Hours: Temp Pulse Resp BP Pulse Ox O2 Del Method O2 Flow Rate 97.7 F 82 20 134/88 92 L Mechanical Ventilation 40 01/09/24 11:46 01/09/24 14:00 01/09/24 14:00 01/09/24 14:00 01/09/24 14:00 01/09/24 14:00 01/08/24 18:06 FiO2 40 01/09/24 13:42 Laboratory Results - last 24 hr 01/08/24 11:00: POC Glucose 313 H* 01/08/24 16:47: POC Glucose 341 H* 01/08/24 20:59: POC Glucose 357 H* 01/09/24 05:43: POC Glucose 413 H* 01/09/24 06:25: Sodium 136, Potassium 4.5, Chloride 103, Carbon Dioxide 27, Anion Gap 10.5, BUN 61 H, Creatinine 3.00 H, Estimated Creat Clear 32, Estimated GFR 16 L*, Est GFR ( Amer) 19 L*, Glucose 387 H D, Calcium 8.2 L, Total Bilirubin 2.0 H, AST 52 H D, ALT 44, Alkaline Phosphatase 91, Total Protein 6.8, Albumin 2.8 L, Globulin 4.0 H, Albumin/Globulin Ratio 0.7 L 01/09/24 11:03: POC Glucose 371 H* I & O for Last 24 hours: Intake & Output 01/06/24 01/07/24 01/08/24 01/09/24 23:59 23:59 23:59 23:59 Intake Total 858.949 / 288.071 6573.734 / 2485.734 2853.167 / 2953.167 2582.221 / 2582.221 Output Total 770 / 770 1500 / 1500 1090 / 1390 1135 / 1135 Balance 88.949 / 88.949 985.734 / 226.995 8627.167 / 3141.554 6832.221 / 1447.221 Weight 101 kg 101 kg 102.194 kg 102.194 kg Microbiology Reports for the Last 24 Hours: Microbiology 01/06/24 11:15 Bronchial Washings - Left Lower Lobe Gram Stain - Final 01/06/24 11:15 Bronchial Washings - Left Lower Lobe Bronchoalveolar Lavage Culture - Preliminary Constitutional Comments: intubated *Routine HEENT Exam Head: Present normocephalic Eye: Present EOMI and PERRL ENT: Present mucous membranes moist *Routine Neck Exam Neck: Present supple; Absent lymphadenopathy *Routine Respiratory Exam Respiratory: Present diminished air movement Comments: mechanical breathing sounds *Routine Cardiovascular Exam Cardiovascular: Present RRR *Routine Abdominal Exam Abdominal: Present soft and normoactive bowel sounds; Absent tenderness *Routine Extremities Exam Extremities: Absent cyanosis, clubbing or edema *Routine Skin Exam Skin: Present warm; Absent rash *Routine Neurological Exam Neurological: Present alert and oriented X3 Assessment and Plan *Assessment and plan (1) Pneumonia: Status: Acute Category: Medical Code(s): J18.9 - Pneumonia, unspecified organism (2) Acute hypoxic respiratory failure: Status: Acute Category: Medical Code(s): J96.01 - Acute respiratory failure with hypoxia (3) Elevated troponin: Status: Acute Category: Medical Code(s): R79.89 - Other specified abnormal findings of blood chemistry Plan Patient is a 58-year-old female with past medical history of diabetes mellitus, active tobacco use, hypertension who presented to hospital due to chest pain/shortness of breath. Patient was found to have elevated troponin, patient was referred to [facility] for possible NSTEMI. Assessment and plan Acute hypoxic respiratory failure satting less than 90% on room air s/p intubation Acute CHF - resolved Elevated troponin at previous facility, suspect NSTEMI SBT trial today, likely extubate tomorrow Monitor on cardiac telemetry intubated and sedated Consult cardiology, consult pulmonary-appreciate recommendations - plan for cardiac cath as OP due to NSTEMI was started on Azithromycin and zosyn ANAHI - likely Hemodynamic ATN - worsening - monitor BMP - avoid nephrotxic meds - will give small bolus 250ml Hyperglycemia due to uncontrolled diabetes mellitus start insulin sliding scale Long-acting insulin Tobacco use - nicotine patch Hypotension- off of levophed now Monitor DVT prophylaxis-continue IV heparin wean off vent, pulmonary following, SBT trails, continue IV abx - Azithromycin and zosyn, likely extubation tomorrow, continue to monitor Cr
[2024-01-09] MEDS: 0.9 % SODIUM CHLORIDE 1000ML 250 ML IV (14:33)
--- NOTE | 2024-01-09 15:26 | PC.NURSE ---
All patient care and documentation by Loren GUTIERREZ was performed under by direct supervision. Pat Thapa RN
[2024-01-09] MEDS: AZITHROMYCIN 500 MG in 0.9 % SODIUM CHLORIDE 250 ML 250 MG IV (15:47)
[2024-01-09] MEDS: NICOTINE 7MG/24HRS PATCH 7 MG TD (15:47)
[2024-01-09 17:03] LABS: POC Glucose,Bedside 296 (70-110)
--- NOTE | 2024-01-09 18:42 | PC.NURSE ---
All care and documentation performed by Loren GUTIERREZ/MAVIS was completed under my direct supervision. Pat Thapa RN
[2024-01-09 21:34] LABS: POC Glucose,Bedside 360 (70-110)
[2024-01-10] VITALS (37 sets, daily range): BP systolic 98–146; BP diastolic 62–108; PULSE 65–90; RESP 15–25; TEMP 36.4–37.2; O2SAT 89–96; BMI 37.5
[2024-01-10] MEDS: propofoL 100 ML 18.1900000000000013 MG IV ×2 (00:20→06:02)
[2024-01-10] MEDS: METHYLPREDNISOLONE SOD SUCC 40MG VIAL 40 MG IV (00:43)
[2024-01-10] MEDS: PIPERACILLIN/TAZO 4.5 GM in 0.9 % SODIUM CHLORIDE 100 ML IV ×2 (00:43→08:24)
[2024-01-10] MEDS: FENTANYL CITRATE/PF 1,000 MCG in 0.9 % SODIUM CHLORIDE 80 ML 7.5 MCG IV (04:12)
--- NOTE | 2024-01-10 06:00 | XR_ITS ---
PROCEDURE INFORMATION: Exam: XR Chest Exam date and time: 01/10/2024 5:42 AM Age: 58 years old Clinical indication: Device placement; Ett placement (vent status); Additional info: Pneumonia mechanical ventilation TECHNIQUE: Imaging protocol: Radiologic exam of the chest. Views: 1 view. COMPARISON: CR XR CHEST PORTABLE 01/09/2024 5:20 AM FINDINGS: Tubes, catheters and devices: Endotracheal tube is seen with the tip 4 cm from the nayeli. Partially visualized enteric tube is seen with the tip extending off the inferior aspect of the study. Lungs: Bibasilar atelectasis versus airspace disease. Pleural spaces: Bilateral pleural effusions. Heart/Mediastinum: Cardiomegaly. Bones/joints: No acute findings. IMPRESSION: 1. The appearance of the chest is similar to the prior exam with bilateral pleural effusions and airspace disease/atelectasis. 2. ET tube 4 cm from the nayeli.
[2024-01-10] MEDS: humaLOG 100 UNITS/ML 3ML VIAL (SSI) SQ ×3 (06:18→21:09)
[2024-01-10 06:27] LABS: POC Glucose,Bedside 382 (70-110)
[2024-01-10] MEDS: BUDESONIDE 0.5MG/2ML NEB 0.5 MG IH ×2 (06:37→18:35)
[2024-01-10] MEDS: IPRATROPIUM/ALBUTEROL 3 ML NEB IH ×4 (06:37→23:49)
[2024-01-10 07:21] LABS: Basophils # 0.1 K/mm3 (0-0.2); Basophils % 0.3 % (0.1-2.0); Eosinophils % 0.1 % (0.1-12.0); Hematocrit 42.6 % (37.0-47.0); Hemoglobin 13.8 g/dL (12.2-16.2); Lymphocytes # 0.6 K/mm3 (0.7-4.5); Lymphocytes % 3.6 % (10-50); Mean Corpuscular HGB Conc 32.4 g/dL (31.8-35.4); Mean Corpuscular Hemoglobin 35.5 pg (27.0-31.2); Mean Corpuscular Volume 109.5 fl (81-99); Mean Platelet Volume 8.3 fl (7.4-10.4); Monocytes # 0.3 K/mm3 (0.1-1.0); Monocytes % 1.9 % (1.7-9.3); Neutrophils # 15.8 K/mm3 (1.8-7.8); Platelet Count 136 K/mm3 (142-424); Red Blood Count 3.89 M/mm3 (4.20-5.40); Red Cell Distribution Width 15.3 % (11.5-17.5); White Blood Count 16.8 K/mm3 (4.8-10.8)
--- NOTE | 2024-01-10 07:30 | PC.NURSE ---
Pt has had a good shift; after sitting her up to the top of the bed and flat on her back her oxygen sats increased from 88-90% to 94-95% and TV from approximately 450 to 600. Rivers catheter draining clear yellow urine with adequate output. FSBS in higher 300s during shift, treated per DEC. Glucerna running at 45 mL/hr which is goal; residual has been approximately 40 mL when checked.
[2024-01-10 07:31] LABS: MANUAL DIFFERENTIAL MANUAL DIFFERENTIAL (MANUAL DIFF)
[2024-01-10 07:37] LABS: Magnesium 2.8 mg/dl (1.6-2.3); Phosphorous 6.2 mg/dl (2.5-4.5)
[2024-01-10 07:39] LABS: Albumin/Globulin Ratio 0.7 (1.1-1.8); Alkaline Phosphatase 111 U/L (38-126); Anion Gap 11.8 mEq/L (5-15); Bilirubin,Total 1.7 mg/dl (0.2-1.3); Blood Urea Nitrogen 69 mg/dl (7-17); Calcium 8.5 mg/dl (8.4-10.2); Carbon Dioxide 25 mmol/L (22.0-30.0); Chloride 105 mmol/L (98-107); Creatinine Clearance Estimated 34 mL/min (50-200); Estimated Glomerular Filt Rate 17 ml/min (>60); GFR (African American) 21 ML/MIN (>60); Globulin 4.1 g/dL (1.3-3.2); Glucose 390 mg/dl (74-100); Potassium 4.8 mmoL/L (3.5-5.1); Sodium 137 mmol/L (136-145); Total Protein,Serum 7.1 g/dl (6.3-8.2)
[2024-01-10 07:40] LABS: Alanine Aminotransferase 47 U/L (12-78); Aspartate Amino Transferase 54 U/L (14-36)
[2024-01-10] MEDS: HEPARIN SODIUM 5,000 UNIT/ML VIAL 5000 UNIT SQ ×2 (08:25→21:09)
[2024-01-10 08:56] LABS: Lymphocytes % 8 % (10-50); Macrocytosis 2+; Monocytes % 1 % (2-9); Neutrophils % 91 % (42-76); Platelet Estimate Normal; Total Cells Counted 100
[2024-01-10] MEDS: INSULIN GLARGINE 100 UNITS/ML 3ML FLEXPEN 10 UNIT SQ (09:08)
--- NOTE | 2024-01-10 09:35 | PC.NURSE ---
ET tube suctioned per RT, blood noted in tube. Verbal order given per Dr. Moreau to hold Heparin VTE.
--- NOTE | 2024-01-10 10:03 | P.PN_ITS ---
Subjective *Date: 01/10/24 *Time: 11:18 Interval history: No acute respiratory events over the weekend. Pulmonology Exam Inpatient Vital signs and Labs for Last 24 Hours: Temp Pulse Resp BP Pulse Ox O2 Del Method O2 Flow Rate 98.4 F 75 20 113/80 94 L Mechanical Ventilation 40 01/10/24 08:00 01/10/24 09:47 01/10/24 09:47 01/10/24 09:47 01/10/24 09:47 01/10/24 09:47 01/10/24 09:47 FiO2 40 01/10/24 09:47 Laboratory Results - last 24 hr 01/09/24 11:03: POC Glucose 371 H* 01/09/24 16:26: POC Glucose 296 H 01/09/24 21:17: POC Glucose 360 H* 01/10/24 06:16: POC Glucose 382 H* 01/10/24 06:30: WBC 16.8 H, RBC 3.89 L, Hgb 13.8, Hct 42.6, MCV 109.5 H, MCH 35.5 H, MCHC 32.4, RDW 15.3, Plt Count 136 L, MPV 8.3, Neut % (Auto) 94.0 H, Lymph % (Auto) 3.6 L, [place] % (Auto) 1.9, Eos % (Auto) 0.1, Baso % (Auto) 0.3, Neut # (Auto) 15.8 H, Lymph # (Auto) 0.6 L, [place] # (Auto) 0.3, Eos # (Auto) 0.0, Baso # (Auto) 0.1, Total Counted 100, Neutrophils % (Manual) 91 H, Lymphocytes % (Manual) 8 L, Monocytes % (Manual) 1 L, Platelet Estimate Normal, Macrocytosis 2+, Sodium 137, Potassium 4.8, Chloride 105, Carbon Dioxide 25, Anion Gap 11.8, BUN 69 H, Creatinine 2.80 H, Estimated Creat Clear 34, Estimated GFR 17 L*, Est GFR ( Amer) 21 L, Glucose 390 H, Calcium 8.5, Phosphorus 6.2 H, Magnesium 2.8 H D, Total Bilirubin 1.7 H, AST 54 H, ALT 47, Alkaline Phosphatase 111, Total Protein 7.1, Albumin 3.0 L, Globulin 4.1 H, Albumin/Globulin Ratio 0.7 L I & O for Labs for Last 24 Hours: Intake & Output 01/07/24 01/08/24 01/09/24 01/10/24 23:59 23:59 23:59 23:59 Intake Total 2485.734 / 2485.734 2853.167 / 2953.167 3607.056 / 3866.056 1470.058 / 1470.058 Output Total 1500 / 1500 1090 / 1390 1520 / 1780 920 / 920 Balance 985.734 / 901.027 0261.167 / 9258.385 6640.056 / 2086.056 550.058 / 550.058 Weight 222 lb 10.67 oz 225 lb 4.8 oz 225 lb 4.787 oz 225 lb 4.787 oz Microbiology Reports for the Last 24 Hours: Microbiology 01/05/24 13:41 Sputum - Expectorated Sputum Gram Stain - Final 01/05/24 13:41 Sputum - Expectorated Sputum Sputum Culture - Preliminary 01/06/24 05:00 Sputum - Endotracheal Tube Aspirate Gram Stain - Final 01/06/24 05:00 Sputum - Endotracheal Tube Aspirate Sputum Culture - Preliminary 01/06/24 11:15 Bronchial Washings - Left Lower Lobe Gram Stain - Final 01/06/24 11:15 Bronchial Washings - Left Lower Lobe Bronchoalveolar Lavage Culture - Final Constitutional: Present moderate distress Comment:: Intubated and Sedated Head: Present normocephalic and atraumatic ENT: Present normal exam, normal oropharynx and mucous membranes moist Neck: Present normal inspection and full ROM Respiratory: Present respiratory distress, rhonchi and wheezes; Absent able to speak in complete sentences Cardiac: Present S1/S2, Tachycardia and radial pulses present GI: Present soft and distention; Absent tenderness or guarding Rectal (female): Present deferred (female): Present deferred Skin: Present intact; Absent cyanosis or jaundice Neuro: Present alert and awake Comment:: Intubated and sedated Extremities: Present normal inspection; Absent clubbing or cyanosis Psychiatric: Present normal affect and cooperative Assessment and Plan *Assessment and plan (1) Acute hypoxic respiratory failure: Status: Acute Category: Medical Code(s): J96.01 - Acute respiratory failure with hypoxia (2) Pneumonia: Status: Acute Category: Medical Code(s): J18.9 - Pneumonia, unspecified organism (3) On mechanically assisted ventilation: Status: Acute Category: Medical Code(s): Z99.11 - Dependence on respirator [ventilator] status (4) ARDS (adult respiratory distress syndrome): Status: Acute Category: Medical Code(s): J80 - Acute respiratory distress syndrome Plan Ms. Richmond is a 66-year-old female greater than [id number] smoking history and carries a diagnosis of COPD baseline using albuterol/nebulizers presented to the ER for worsening chest pain and shortness of breath and pulmonary was called for further evaluation and management. Chest x-ray upon admission bilateral lower lobe airspace disease, left greater than right. Interstitial thickening is also noted, likely a combination of airspace disease and volume overload. Neutrophilic leukocytosis upon admission. Serum ammonia also elevated upon admission. Patient admission was initiated on BiPAP therapy. No blood gas available. On initial examination patient is awake responding to verbal commands. Weaned from BiPAP to high flow nasal cannula. Wheezing on auscutation. CTA personally reviewed, no evidence of pulmonary embolism bilateral lower lobe dense consolidative changes left greater than right. Small effusions also noted. Significant emphysematous changes also noted. Calcified lymphadenopathy noted. Patient experienced significant respiratory distress overnight on 01/22/2024 needing intubation and mechanical ventilatory support. Interval update: Chest x-ray no significant change and continues show bilateral opacities. Continue to receive Zosyn and azithromycin. Improving leukocytosis. methylprednisone 40 every 12 hours. CRP elevated at 18.4. Pending SPENCER screen strep Legionella and strongyloidiasis antibody. Interval update: Acute respiratory events overnight. Continue transfer antibiotics and steroids. Sputum culture from BAL no growth so far. Small amount of budding yeast seen. No significant WBC noted. Chest x-ray continues to improve. Off sedation this morning. Alert and awake, following commands. On minimal vent settings. SPENCER screen negative. BAL eosinophil count 0. Nasal MRSA PCR negative. Plan: -Continue mechanical ventilatory support, currently on propofol and fentanyl. SBT and possible extubation. SBT and possible extubation. Continue Zosyn x 7 days and azithromycin x 5 days. Follow with Strongyloides antibody urine strep and Legionella antigens Wean steroids to prednisone 40 mg oral daily starting tomorrow DuoNebs Q6 and pulmicort Q12 scheduled Dynamically stable. Off pressors. CT imaging concerned for cirrhotic morphology of liver with portal hyperte nsion. Abdomen soft nontender. AST ALT improving. Will closely monitor. Will monitor closely. Recommend initiating tube feeds. Worsening renal function. Oliguric ANAHI. F/U Urile lytes. - Continue mechanical ventilatory support - Continue AnalgoSedation with Propofol and Fentanyl with CPOT gal less than or equal to 2 and RASS goal of to 2 (No need for deep sedation) - VAP bundle Recommend elevate head of the bed at 30 to 45 degrees Recommend oral care with chlorhexidne Recommend GI ulcer prophylaxis - Famotidine 20mg IV BID Recommend chemical DVT prophylaxis Total critical care time spent on this patient is 35 minutes managing acute hypoxic respiratory failure needing mechanical ventilation. This time spent include reviewing test results including interpreting chest x-rays, labs and arterial blood gas, optimizing the ventilator settings,formulating plan of care, discussing the plan of care with the team and the nursing staff.
[2024-01-10 10:15] LABS: Antinuclear Antibodies (ANA) Negative
--- NOTE | 2024-01-10 10:15 | PC.NURSE ---
Dr. Quinn at bedside. All sedation off at this time. Pt switched to SBT per RT.
--- NOTE | 2024-01-10 10:28 | ECG_ITS ---
APPROVED REPORT Exam: Resting ECG HR:77 bpm ECG Measurements Heart Rate 77 AXES VT 136 P -16 QRSd 100 QRS 49 QT 389 T 45 QTc 420 Conclusion SINUS RHYTHM NORMAL ECG UNCONFIRMED REPORT Electronically signed by : JOE CALDERÓN, 01/11/2024 06:48:04
[2024-01-10 11:43] LABS: POC Glucose,Bedside 350 (70-110)
[2024-01-10 12:08] LABS: ABG Base Excess 0.4 mmol/L (-2.4-2.3); ABG HCO3 25.3 mmhg (22.0-26.0); ABG Oxygen Saturation 92 % (90-100); ABG PCO2 42.3 mmhg (35.0-45.0); ABG PH 7.39 mmol/L (7.35-7.45); ABG PO2 66.6 mmhg (80-100); ABG TCO2 26.6 mmhg (23-27)
[2024-01-10 12:11] LABS: Allen's Test ACCEPTABLE; Oxygen 40 %; PEEP 5; Source Left Radial
--- NOTE | 2024-01-10 12:39 | PC.NURSE ---
pt extubated at this time. pt placed on 4LNC sats 93%.
--- NOTE | 2024-01-10 12:48 | PC.NURSE ---
OG tube pulled with extubation. to obtain swallow eval.
[2024-01-10] MEDS: NICOTINE 7MG/24HRS PATCH 7 MG TD (13:57)
[2024-01-10] MEDS: PIPERACILLIN/TAZO 2.25 GM in 0.9 % SODIUM CHLORIDE 50 ML IV ×2 (14:08→21:10)
[2024-01-10] MEDS: AZITHROMYCIN 500 MG in 0.9 % SODIUM CHLORIDE 250 ML 250 MG IV (14:48)
--- NOTE | 2024-01-10 15:23 | EXP.CARD.PN ---
Subjective Subjective Date: 01/10/24 Time: 13:00 Principal diagnosis: NSTEMI, COPD exacerbation, pneumonia Interval history: Extubated this morning. A/O. Reports feeling better. Exam Data for Last 24 hours Vital signs and Labs for Last 24 Hours: Temp Pulse Resp BP Pulse Ox O2 Del Method O2 Flow Rate 98.2 F 76 18 137/92 H 92 L Nasal Cannula 4 01/10/24 13:35 01/10/24 14:43 01/10/24 14:43 01/10/24 14:43 01/10/24 14:43 01/10/24 14:43 01/10/24 14:43 FiO2 40 01/10/24 11:42 Laboratory Results - last 24 hr 01/06/24 11:15: BAL Total Cell Count See comment 01/06/24 13:41: SPENCER Screen Negative 01/09/24 16:26: POC Glucose 296 H 01/09/24 21:17: POC Glucose 360 H* 01/10/24 06:16: POC Glucose 382 H* 01/10/24 06:30: WBC 16.8 H, RBC 3.89 L, Hgb 13.8, Hct 42.6, MCV 109.5 H, MCH 35.5 H, MCHC 32.4, RDW 15.3, Plt Count 136 L, MPV 8.3, Neut % (Auto) 94.0 H, Lymph % (Auto) 3.6 L, [place] % (Auto) 1.9, Eos % (Auto) 0.1, Baso % (Auto) 0.3, Neut # (Auto) 15.8 H, Lymph # (Auto) 0.6 L, [place] # (Auto) 0.3, Eos # (Auto) 0.0, Baso # (Auto) 0.1, Total Counted 100, Neutrophils % (Manual) 91 H, Lymphocytes % (Manual) 8 L, Monocytes % (Manual) 1 L, Platelet Estimate Normal, Macrocytosis 2+, Sodium 137, Potassium 4.8, Chloride 105, Carbon Dioxide 25, Anion Gap 11.8, BUN 69 H, Creatinine 2.80 H, Estimated Creat Clear 34, Estimated GFR 17 L*, Est GFR ( Amer) 21 L, Glucose 390 H, Calcium 8.5, Phosphorus 6.2 H, Magnesium 2.8 H D, Total Bilirubin 1.7 H, AST 54 H, ALT 47, Alkaline Phosphatase 111, Total Protein 7.1, Albumin 3.0 L, Globulin 4.1 H, Albumin/Globulin Ratio 0.7 L 01/10/24 11:09: POC Glucose 350 H* 01/10/24 12:00: Specimen Source Left radial, O2 % 40, ABG pH 7.39, ABG pCO2 42.3, ABG pO2 66.6 L, ABG HCO3 25.3, ABG Total CO2 26.6, ABG O2 Saturation 92, ABG Base Excess 0.4, Senthil Test Acceptable, PEEP 5 I & O for Last 24 hours: Intake & Output 01/07/24 01/08/24 01/09/24 01/10/24 23:59 23:59 23:59 23:59 Intake Total 2485.734 / 2485.734 2853.167 / 2953.167 3607.056 / 3866.056 1582.147 / 1582.147 Output Total 1500 / 1500 1090 / 1390 1520 / 1780 1200 / 1200 Balance 985.734 / 916.826 8059.167 / 4238.646 9488.056 / 2086.056 382.147 / 382.147 Weight 222 lb 10.67 oz 225 lb 4.8 oz 225 lb 4.787 oz 225 lb 4.787 oz Microbiology Reports for the Last 24 Hours: Microbiology 01/05/24 13:41 Sputum - Expectorated Sputum Gram Stain - Final 01/05/24 13:41 Sputum - Expectorated Sputum Sputum Culture - Preliminary 01/06/24 05:00 Sputum - Endotracheal Tube Aspirate Gram Stain - Final 01/06/24 05:00 Sputum - Endotracheal Tube Aspirate Sputum Culture - Preliminary 01/06/24 11:15 Bronchial Washings - Left Lower Lobe Gram Stain - Final 01/06/24 11:15 Bronchial Washings - Left Lower Lobe Bronchoalveolar Lavage Culture - Final *Routine Respiratory Exam Respiratory: Present wheezes and symmetric chest movement Comments: Patient is extubated *Routine Cardiovascular Exam Cardiovascular: Present Normal S1 and Normal S2 *Routine Extremities Exam Comments: Mild lower extremity edema present Progress Note: A&P Assessment and plan (1) Acute hypoxic respiratory failure: Status: Acute (2) Pneumonia: Status: Acute (3) On mechanically assisted ventilation: Status: Acute (4) ARDS (adult respiratory distress syndrome): Status: Acute Assessment and Plan Assessment and Plan for All Diagnoses:: NSTEMI -Elevated trop at [facility], first trop here was 1.05. -EKG is negative for acute ischemic changes -Was on Lovenox 1mg/kg but is now on hold due to bleeding -No planned intervention at this time due to respiratory failure/bleeding -Aspirin and plavix on hold. -Statin on hold due to elevated liver enzymes Chronic HFpEF, RV dilation with mild reduction in function -Echo shows normal EF with moderate RV dilation and mild reduction in function. mild MR. mild to moderate TR. RVSP 25-30. Repeat limited echo status post intubation is essentially unchanged with exception of hyperdynamic ventricle. Gave one-time 250 mL normal saline bolus. -Will consider addition of jardiance at later date. Acute on Chronic Hypoxic Respiratory Failure - COPD, PNA/Sepsis -Originally requiring BiPAP, then was weaned to Vapotherm shortly after arrival to the hospital. Patient developed worsening hypoxic respiratory failure requiring intervention 01/05. -CTA chest 01/03 was negative for PE with bilateral lower lobe consolidation and alveolar opacities worrisome for pneumonia. -Recently dx with step at home -Pulmonology is following. Patient underwent bronchoscopy yesterday morning, will defer IV antibiotic selection, pneumonia and mechanical ventilation management to pulmonology. -Extubated 01/09 Acute kidney injury -Baseline Cr 0.8-0.9 -Creatinine elevated to 2.8, difficult to manage volume status this admission -dose adjust meds, continue daily labs Hematuria-improving Nose bleed-improving Elevated liver enzymes-improving Cirrhosis -Platelets 124, INR 1.18, total bili 2.1, AST 102, ALT 60, fibrinogen 308 -Holding dapt therapy and lovenox due to recent bleeding -Cirrhosis with portal hypertension noted on cta -Defer to primary service and pulmonology Tobacco use -Smoking cessation advised History of hypertension with current hypotension -Off IV pressors -stable on PO midodrine Diabetes mellitus Hyperglycemia -Defer to primary service CV summary 01/09: Improving, extubated. No CV changes. Continue current CV meds. Will arrange OP ischemic workup when respiratory status and bleeding complications are resolved.
[2024-01-10 16:13] LABS: POC Glucose,Bedside 204 (70-110)
--- NOTE | 2024-01-10 16:13 | PC.NURSE ---
pt was extubated this shift to 4LNC. pt alert and oriented. speech hoarse since extubation. pt has been suctioning herself with the yaunker, adin blood noted. MD aware, Heparin vte held per MD order. Lung sounds clear t/o. NSR on sash installer. abdomen soft, nontender, bowel sounds hypoactive. f/c in place and draining. scattered bruising t/o bilateral extremities. Nicotine patch to left arm. pt to have a swallow eval tomorrow. npo at this time. This nurse called and spoke with pt's son Heron regarding extubation, unable to reach pt's other son Pramod. Call light w/i reach.
--- NOTE | 2024-01-10 19:56 | P.PN_ITS ---
Subjective *Date: 01/10/24 *Time: 19:58 Medical Exam Vital signs and Labs for Last 24 Hours: Vital Signs Temp Pulse Pulse Resp BP Pulse Ox O2 Del Method 01/10/24 18:35 81 01/10/24 18:35 84 01/10/24 18:30 94 L Nasal Cannula 01/10/24 18:29 77 18 145/98 H 91 L Nasal Cannula 01/10/24 18:29 Nasal Cannula 01/10/24 17:38 78 18 144/97 H 93 L Nasal Cannula 01/10/24 16:53 75 18 143/90 H 94 L Nasal Cannula 01/10/24 16:53 Nasal Cannula 01/10/24 16:00 81 01/10/24 16:00 92 L Nasal Cannula 01/10/24 15:41 98.1 F 01/10/24 14:43 76 18 137/92 H 92 L Nasal Cannula 01/10/24 14:43 Nasal Cannula 01/10/24 13:58 76 18 145/108 H 93 L Nasal Cannula 01/10/24 13:35 98.2 F 01/10/24 12:49 77 18 132/87 91 L Nasal Cannula 01/10/24 12:49 Nasal Cannula 01/10/24 12:00 80 01/10/24 11:42 77 20 115/74 94 L Mechanical Ventilation 01/10/24 11:42 93 L Mechanical Ventilation 01/10/24 11:10 81 01/10/24 11:10 81 01/10/24 11:10 17 93 L 01/10/24 10:44 77 20 124/74 93 L Mechanical Ventilation 01/10/24 10:44 Mechanical Ventilation 01/10/24 09:47 75 20 113/80 94 L Mechanical Ventilation 01/10/24 09:47 94 L 01/10/24 09:30 25 H 93 L 01/10/24 09:00 74 20 102/67 L 92 L 01/10/24 09:00 Mechanical Ventilation 01/10/24 08:00 73 01/10/24 08:00 73 01/10/24 08:00 71 105/69 L 91 L Room Air 01/10/24 08:00 20 92 L Mechanical Ventilation 01/10/24 08:00 98.4 F 01/10/24 06:56 82 20 121/86 92 L Mechanical Ventilation 01/10/24 06:56 Mechanical Ventilation 01/10/24 06:43 20 91 L 01/10/24 06:38 81 01/10/24 06:38 82 01/10/24 06:00 82 20 138/98 H 94 L Mechanical Ventilation 01/10/24 04:58 66 20 108/72 L 95 Mechanical Ventilation 01/10/24 04:58 Mechanical Ventilation 01/10/24 04:00 70 01/10/24 04:00 98.4 F 65 20 108/70 L 95 Mechanical Ventilation 01/10/24 04:00 Mechanical Ventilation 01/10/24 03:58 20 94 L 01/10/24 03:00 65 20 108/69 L 95 Mechanical Ventilation 01/10/24 02:20 20 95 01/10/24 02:00 68 20 102/68 L 96 Mechanical Ventilation 01/10/24 01:00 70 20 98/66 L 95 Mechanical Ventilation 01/10/24 01:00 Mechanical Ventilation 01/10/24 00:30 95 01/10/24 00:00 70 01/10/24 00:00 98.9 F 67 20 100/62 L 96 Mechanical Ventilation 01/10/24 00:00 Mechanical Ventilation 01/09/24 23:58 20 96 01/09/24 23:57 68 01/09/24 23:57 70 01/09/24 23:00 68 20 102/65 L 95 Mechanical Ventilation 01/09/24 23:00 Mechanical Ventilation 01/09/24 22:10 23 91 L 01/09/24 22:00 68 20 110/72 90 L Mechanical Ventilation 01/09/24 21:00 69 20 112/73 90 L Mechanical Ventilation 01/09/24 21:00 Mechanical Ventilation 01/09/24 20:00 70 01/09/24 20:00 69 20 95/58 L 90 L Mechanical Ventilation 01/09/24 20:00 Mechanical Ventilation O2 Flow Rate FiO2 01/10/24 18:35 01/10/24 18:35 01/10/24 18:30 4 01/10/24 18:29 4 01/10/24 18:29 4 01/10/24 17:38 4 01/10/24 16:53 4 01/10/24 16:53 4 01/10/24 16:00 01/10/24 16:00 4 01/10/24 15:41 01/10/24 14:43 4 01/10/24 14:43 4 01/10/24 13:58 4 01/10/24 13:35 01/10/24 12:49 4 01/10/24 12:49 4 01/10/24 12:00 01/10/24 11:42 01/10/24 11:42 40 01/10/24 11:10 01/10/24 11:10 01/10/24 11:10 40 01/10/24 10:44 01/10/24 10:44 01/10/24 09:47 40 01/10/24 09:47 40 01/10/24 09:30 40 01/10/24 09:00 01/10/24 09:00 01/10/24 08:00 01/10/24 08:00 01/10/24 08:00 01/10/24 08:00 40 01/10/24 08:00 01/10/24 06:56 01/10/24 06:56 01/10/24 06:43 40 01/10/24 06:38 01/10/24 06:38 01/10/24 06:00 01/10/24 04:58 01/10/24 04:58 01/10/24 04:00 01/10/24 04:00 01/10/24 04:00 01/10/24 03:58 40 01/10/24 03:00 01/10/24 02:20 40 01/10/24 02:00 01/10/24 01:00 01/10/24 01:00 01/10/24 00:30 45 01/10/24 00:00 01/10/24 00:00 01/10/24 00:00 50 01/09/24 23:58 50 01/09/24 23:57 01/09/24 23:57 01/09/24 23:00 50 01/09/24 23:00 01/09/24 22:10 50 01/09/24 22:00 50 01/09/24 21:00 50 01/09/24 21:00 01/09/24 20:00 01/09/24 20:00 50 01/09/24 20:00 50 Intake and Output 01/10/24 01/10/24 01/10/24 07:59 15:59 23:59 Intake Total 1240.883 / 1832.147 341.264 / 1832.147 250 / 1832.147 Output Total 820 / 1435 380 / 1435 235 / 1435 Balance 420.883 / 397.147 -38.736 / 397.147 15 / 397.147 Intake: Intake, Tube Feeding Amount 308 / 410 102 / 410 Intake, Tube Irrigant Amount 300 / 300 Intake, Total IV Amount 632.883 / 1122.147 239.264 / 1122.147 250 / 1122.147 Azithromycin 500 mg In 0.9 % 250 / 250 Sodium Chloride 250 ml @ 250 mls/hr IV Q24H [facility] Rx#:[id number] Fentanyl Citrate/Pf 1,000 mcg 99 / 116 17 / 116 In 0.9 % Sodium Chloride 80 ml @ 75 MCG/HR 7.5 mls/hr IV . [id number] [facility] Rx#:[id number] Norepinephrine Bitartrate/D5w 8 63 / 68 5 / 68 mg In 250 ml @ 4 MCG/MIN 7.5 mls/hr IV .Q24H [facility] Rx#: [id number] Piperacillin/Tazo 4.5 gm In 0.9 100 / 100 % Sodium Chloride 100 ml @ 200 mls/hr IV Q8H [facility] Rx#:[id number] propofoL 100 ml @ 30 MCG/KG/MIN 235 / 263 28 / 263 18.191 mls/hr IV .Q5H30M [facility] Rx#:[id number] Output: Output, Urine Amount 730 / 730 0 / 730 Output, Urine Amount (Catheter) 90 / 705 380 / 705 235 / 705 Rivers 90 / 705 380 / 705 235 / 705 Other: Number of Voids 0 Weight 102.194 kg Patient Weight 01/10/24 23:59 Weight 102.194 kg Laboratory Results - last 24 hr 01/06/24 11:15: BAL Total Cell Count See comment 01/06/24 13:41: SPENCER Screen Negative 01/09/24 21:17: POC Glucose 360 H* 01/10/24 06:16: POC Glucose 382 H* 01/10/24 06:30: WBC 16.8 H, RBC 3.89 L, Hgb 13.8, Hct 42.6, MCV 109.5 H, MCH 3 5.5 H, MCHC 32.4, RDW 15.3, Plt Count 136 L, MPV 8.3, Neut % (Auto) 94.0 H, Lymph % (Auto) 3.6 L, [place] % (Auto) 1.9, Eos % (Auto) 0.1, Baso % (Auto) 0.3, Neut # (Auto) 15.8 H, Lymph # (Auto) 0.6 L, [place] # (Auto) 0.3, Eos # (Auto) 0.0, Baso # (Auto) 0.1, Total Counted 100, Neutrophils % (Manual) 91 H, Lymphocytes % (Manual) 8 L, Monocytes % (Manual) 1 L, Platelet Estimate Normal, Macrocytosis 2+, Sodium 137, Potassium 4.8, Chloride 105, Carbon Dioxide 25, Anion Gap 11.8, BUN 69 H, Creatinine 2.80 H, Estimated Creat Clear 34, Estimated GFR 17 L*, Est GFR ( Amer) 21 L, Glucose 390 H, Calcium 8.5, Phosphorus 6.2 H, Magnesium 2.8 H D, Total Bilirubin 1.7 H, AST 54 H, ALT 47, Alkaline Phosphatase 111, Total Protein 7.1, Albumin 3.0 L, Globulin 4.1 H, Albumin/Globulin Ratio 0.7 L 01/10/24 11:09: POC Glucose 350 H* 01/10/24 12:00: Specimen Source Left radial, O2 % 40, ABG pH 7.39, ABG pCO2 42.3, ABG pO2 66.6 L, ABG HCO3 25.3, ABG Total CO2 26.6, ABG O2 Saturation 92, ABG Base Excess 0.4, Senthil Test Acceptable, PEEP 5 01/10/24 16:03: POC Glucose 204 H I & O for Labs for Last 24 Hours: Intake & Output 01/07/24 01/08/24 01/09/24 01/10/24 23:59 23:59 23:59 23:59 Intake Total 2485.734 / 2485.734 2853.167 / 2953.167 3607.056 / 3866.056 1832.147 / 1832.147 Output Total 1500 / 1500 1090 / 1390 1520 / 1780 1435 / 1435 Balance 985.734 / 199.096 7468.167 / 0649.188 6905.056 / 2086.056 397.147 / 397.147 Weight 101 kg 102.194 kg 102.194 kg 102.194 kg Microbiology Reports for the Last 24 Hours: Microbiology 01/05/24 13:41 Sputum - Expectorated Sputum Gram Stain - Final 01/05/24 13:41 Sputum - Expectorated Sputum Sputum Culture - Preliminary 01/06/24 05:00 Sputum - Endotracheal Tube Aspirate Gram Stain - Final 01/06/24 05:00 Sputum - Endotracheal Tube Aspirate Sputum Culture - Preliminary 01/06/24 11:15 Bronchial Washings - Left Lower Lobe Gram Stain - Final 01/06/24 11:15 Bronchial Washings - Left Lower Lobe Bronchoalveolar Lavage Culture - Final Assessment and Plan *Assessment and plan (1) Pneumonia: Status: Acute Category: Medical Code(s): J18.9 - Pneumonia, unspecified organism (2) Acute hypoxic respiratory failure: Status: Acute Category: Medical Code(s): J96.01 - Acute respiratory failure with hypoxia (3) Elevated troponin: Status: Acute Category: Medical Code(s): R79.89 - Other specified abnormal findings of blood chemistry (4) Diabetes: Status: Acute Category: Medical Code(s): E11.9 - Type 2 diabetes mellitus without complications (5) ARDS (adult respiratory distress syndrome): Status: Acute Category: Medical Code(s): J80 - Acute respiratory distress syndrome (6) Cirrhosis: Status: Acute Category: Medical Code(s): K74.60 - Unspecified cirrhosis of liver (7) ANAHI (acute kidney injury): Status: Acute Category: Medical Code(s): N17.9 - Acute kidney failure, unspecified Plan Patient is a 58-year-old female with past medical history of diabetes mellitus, active tobacco use, hypertension who presented to hospital due to chest pain/shortness of breath. Patient was found to have elevated troponin, patient was referred to H&H for possible NSTEMI. Presented in septic shock. Intubated on arrival. This morning, passed SBT and was extubated to nasal cannula oxygen. Able to interact with patient on repeat rounds. She is alert and oriented x 3. States she is feeling somewhat better, still having some hemoptysis. Pulmonology and cardiology assisting with care. Continues to require inpatient management. Problems addressed as follows: Acute hypoxic respiratory failure due to pneumonia complicated by ARDS -Pulmonology consulted, appreciate their recommendations. Discussed case this morning. As patient passed their SBT, was extubated after rounds -Continue antibiotics with Zosyn x 7 days and azithromycin x 5 days. -Cultures pending. Follow Strongyloides antibody, urine strep, Legionella antigens - wean steroids to 40 mg prednisone p.o. daily satting less than 90% on room air s/p intubation -DuoNeb scheduled every 6 hours and Pulmicort every 12 hours scheduled -In light of patient's hemoptysis, will discontinue all anticoagulation - Patient off pressors, blood pressure better after weaning sedation -White cell count 16.8 NSTEMI Chronic heart failure with preserved ejection fraction, dilated RV -Consider Jardiance when kidney function improves - Cardiology consulted and assisting with care, recommend outpatient eval for ischemic disease Cirrhosis Thrombocytopenia -Holding DAPT and Lovenox due to bleeding -Platelets 136 this morning. Repeat CBC, CMP, magnesium ordered for the morning. -Cirrhosis with portal hypertension noted on CTA, will need referral to GI after discharge -Bili 1.7, AST 54, ALT 47, alk phos 111. Improving. Continue to monitor daily ANAHI - likely Hemodynamic ATN versus ANAHI from sepsis -Creatinine 2.8 this morning, BUN 69. -Holding on IV fluids, patient is positive daily fluid balance -Making urine, over 1000 cc of urine output daily -Urine sodium, creatinine, urea pending -Repeat CBC, CMP, magnesium ordered for the morning, monitor for improvement off pressors. Hyperglycemia due to uncontrolled diabetes mellitus - A1c 7.0 on admission. Continue sliding scale insulin with fingersticks every 6 - Initiate Lantus 10 units nightly Tobacco use - nicotine patch Holding anticoagulation in setting of hemoptysis N.p.o. pending speech eval Full code
[2024-01-10 23:59] LABS: POC Glucose,Bedside 176 (70-110)
[2024-01-10 23:59] LABS: POC Glucose,Bedside 200 (70-110)
[2024-01-11] VITALS (29 sets, daily range): BP systolic 103–163; BP diastolic 66–111; PULSE 77–100; RESP 14–22; TEMP 36.3–37.1; O2SAT 91–96; BMI 37.5
[2024-01-11] MEDS: PIPERACILLIN/TAZO 2.25 GM in 0.9 % SODIUM CHLORIDE 50 ML IV ×4 (02:27→21:05)
[2024-01-11] MEDS: humaLOG 100 UNITS/ML 3ML VIAL (SSI) SQ ×4 (05:54→21:06)
[2024-01-11 05:57] LABS: POC Glucose,Bedside 183 (70-110)
--- NOTE | 2024-01-11 06:00 | XR_ITS ---
FINAL REPORT CLINICAL HISTORY: Pneumonia mechanical ventilation FINDINGS: SINGLE-VIEW CHEST There is cardiomegaly with pulmonary vascular congestion. The mediastinum is normal. There are left base opacities, may represent atelectasis or pneumonia. Moderate left effusion is identified. There is no pneumothorax. IMPRESSION: Left base atelectasis versus pneumonia with moderate left effusion. Reviewed, Interpreted and Dictated by Faustino Barrow III, MD Transcribed by Regi Mitchell Authenticated and . [facility]
[2024-01-11] MEDS: BUDESONIDE 0.5MG/2ML NEB 0.5 MG IH ×2 (06:29→18:10)
[2024-01-11] MEDS: IPRATROPIUM/ALBUTEROL 3 ML NEB IH ×5 (06:29→23:26)
[2024-01-11 08:16] LABS: Basophils % 0.2 % (0.1-2.0); Eosinophils # 0.2 K/mm3 (0.0-0.4); Eosinophils % 1.7 % (0.1-12.0); Hematocrit 37.3 % (37.0-47.0); Hemoglobin 12.4 g/dL (12.2-16.2); Lymphocytes # 1.4 K/mm3 (0.7-4.5); Lymphocytes % 13.7 % (10-50); Mean Corpuscular HGB Conc 33.2 g/dL (31.8-35.4); Mean Corpuscular Hemoglobin 36.1 pg (27.0-31.2); Mean Corpuscular Volume 108.8 fl (81-99); Mean Platelet Volume 9.2 fl (7.4-10.4); Monocytes # 0.4 K/mm3 (0.1-1.0); Monocytes % 4.1 % (1.7-9.3); Neutrophils # 8.2 K/mm3 (1.8-7.8); Neutrophils % 80.3 % (37.0-80.0); Platelet Count 83 K/mm3 (142-424); Red Blood Count 3.43 M/mm3 (4.20-5.40); Red Cell Distribution Width 15.4 % (11.5-17.5); White Blood Count 10.3 K/mm3 (4.8-10.8)
[2024-01-11 08:25] LABS: Chloride 111 mmol/L (98-107); Sodium 143 mmol/L (136-145)
[2024-01-11 08:26] LABS: Potassium 3.9 mmoL/L (3.5-5.1)
[2024-01-11 08:28] LABS: Alanine Aminotransferase 138 U/L (12-78); Alkaline Phosphatase 69 U/L (38-126); Anion Gap 5.9 mEq/L (5-15); Aspartate Amino Transferase 190 U/L (14-36); Bilirubin,Total 1.9 mg/dl (0.2-1.3); Blood Urea Nitrogen 71 mg/dl (7-17); Carbon Dioxide 30 mmol/L (22.0-30.0); Creatinine Clearance Estimated 36 mL/min (50-200); Estimated Glomerular Filt Rate 18 ml/min (>60); GFR (African American) 22 ML/MIN (>60)
[2024-01-11 08:29] LABS: Albumin Level 2.7 g/dl (3.5-5.0); Albumin/Globulin Ratio 0.7 (1.1-1.8); Calcium 8.7 mg/dl (8.4-10.2); Globulin 3.7 g/dL (1.3-3.2); Glucose 164 mg/dl (74-100); Magnesium 2.7 mg/dl (1.6-2.3); Total Protein,Serum 6.4 g/dl (6.3-8.2)
[2024-01-11] MEDS: HEPARIN SODIUM 5,000 UNIT/ML VIAL 5000 UNIT SQ ×2 (08:43→21:05)
[2024-01-11] MEDS: INSULIN GLARGINE 100 UNITS/ML 3ML FLEXPEN 10 UNIT SQ (08:43)
[2024-01-11 11:25] LABS: POC Glucose,Bedside 164 (70-110)
[2024-01-11 14:16] LABS: Strongyloides IgG Antibody Negative (Negative)
--- NOTE | 2024-01-11 14:22 | EXP.ACUTE.PN ---
Subjective *Date: 01/11/24 *Time: 14:22 Interval history: Patient required increasing oxygen overnight to 6 L. Still having scant hemoptysis. No nausea or vomiting. Thirsty and wanting something to drink. Awaiting speech eval. Afebrile. Interactive on exam, oriented x 3. Voice is hoarse and weak but answering questions appropriately and intelligibly. Denies chest pain, nausea, vomiting, diarrhea Medical Exam Vital signs and Labs for Last 24 Hours: Vital Signs Temp Pulse Pulse Resp BP Pulse Ox O2 Del Method 01/11/24 14:00 85 16 138/96 H 92 L Nasal Cannula 01/11/24 13:00 77 16 117/78 92 L Nasal Cannula 01/11/24 12:00 81 17 120/82 93 L Nasal Cannula 01/11/24 11:16 97.9 F 01/11/24 11:15 80 01/11/24 11:15 77 01/11/24 11:00 80 16 119/83 92 L Nasal Cannula 01/11/24 11:00 Nasal Cannula 01/11/24 10:00 81 15 103/66 L 93 L Nasal Cannula 01/11/24 09:00 Nasal Cannula 01/11/24 09:00 79 14 105/68 L 92 L Nasal Cannula 01/11/24 08:00 92 L Nasal Cannula 01/11/24 08:00 80 01/11/24 08:00 82 15 121/79 93 L Nasal Cannula 01/11/24 08:00 98.3 F 01/11/24 07:00 91 H 16 92 L Nasal Cannula 01/11/24 06:29 91 L Nasal Cannula 01/11/24 06:29 83 01/11/24 06:29 81 01/11/24 06:00 81 17 132/81 91 L Nasal Cannula 01/11/24 05:00 98.2 F 81 16 133/90 92 L Nasal Cannula 01/11/24 04:00 80 01/11/24 04:00 17 95 Nasal Cannula 01/11/24 04:00 83 17 133/84 92 L Nasal Cannula 01/11/24 03:00 86 19 145/97 H 91 L Nasal Cannula 01/11/24 02:00 97.9 F 84 20 109/72 L 93 L 01/11/24 01:00 97.9 F 84 19 110/79 91 L Nasal Cannula 01/11/24 00:00 100 H 01/11/24 00:00 80 91 L Nasal Cannula 01/11/24 00:00 83 22 137/92 H 92 L Nasal Cannula 01/10/24 23:49 82 01/10/24 23:49 84 01/10/24 23:00 80 20 112/66 91 L Nasal Cannula 01/10/24 23:00 Nasal Cannula 01/10/24 22:00 97.6 F 82 16 112/66 92 L 01/10/24 21:00 85 15 126/89 91 L Nasal Cannula 01/10/24 21:00 Nasal Cannula 01/10/24 20:00 90 01/10/24 20:00 83 91 L Nasal Cannula 01/10/24 20:00 89 22 146/99 H 89 L Nasal Cannula 01/10/24 18:35 81 01/10/24 18:35 84 01/10/24 18:30 94 L Nasal Cannula 01/10/24 18:29 77 18 145/98 H 91 L Nasal Cannula 01/10/24 18:29 Nasal Cannula 01/10/24 17:38 78 18 144/97 H 93 L Nasal Cannula 01/10/24 16:53 75 18 143/90 H 94 L Nasal Cannula 01/10/24 16:53 Nasal Cannula 01/10/24 16:00 81 01/10/24 16:00 92 L Nasal Cannula 01/10/24 15:41 98.1 F 01/10/24 14:43 76 18 137/92 H 92 L Nasal Cannula 01/10/24 14:43 Nasal Cannula O2 Flow Rate 01/11/24 14:00 6 01/11/24 13:00 6 01/11/24 12:00 6 01/11/24 11:16 01/11/24 11:15 01/11/24 11:15 01/11/24 11:00 6 01/11/24 11:00 6 01/11/24 10:00 6 01/11/24 09:00 6 01/11/24 09:00 6 01/11/24 08:00 6 01/11/24 08:00 01/11/24 08:00 6 01/11/24 08:00 01/11/24 07:00 6 01/11/24 06:29 6 01/11/24 06:29 01/11/24 06:29 01/11/24 06:00 6 01/11/24 05:00 6 01/11/24 04:00 01/11/24 04:00 6 01/11/24 04:00 6 01/11/24 03:00 6 01/11/24 02:00 4 01/11/24 01:00 4 01/11/24 00:00 01/11/24 00:00 4 01/11/24 00:00 4 01/10/24 23:49 01/10/24 23:49 01/10/24 23:00 4 01/10/24 23:00 4 01/10/24 22:00 4 01/10/24 21:00 4 01/10/24 21:00 4 01/10/24 20:00 01/10/24 20:00 4 01/10/24 20:00 4 01/10/24 18:35 01/10/24 18:35 01/10/24 18:30 4 01/10/24 18:29 4 01/10/24 18:29 4 01/10/24 17:38 4 01/10/24 16:53 4 01/10/24 16:53 4 01/10/24 16:00 01/10/24 16:00 4 01/10/24 15:41 01/10/24 14:43 4 01/10/24 14:43 4 Intake and Output 01/10/24 01/11/24 01/11/24 23:59 07:59 15:59 Intake Total 300 / 1882.147 50 / 50 Output Total 435 / 1810 875 / 1375 500 / 1375 Balance -135 / 72.147 -875 / -1325 -450 / -1325 Intake: Intake, Total IV Amount 300 / 847 50 / 50 Azithromycin 500 mg In 0.9 % 250 / 250 Sodium Chloride 250 ml @ 250 mls/hr IV Q24H [facility] Rx#:[id number] Piperacillin/Tazo 2.25 gm In 0. 50 / 50 9 % Sodium Chloride 50 ml @ 100 mls/hr IV Q6H [facility] Rx#:[id number] Piperacillin/Tazo 4.5 gm In 0.9 50 / 150 % Sodium Chloride 100 ml @ 200 mls/hr IV Q8H [facility] Rx#:[id number] Output: Output, Urine Amount 500 / 500 Output, Urine Amount (Catheter) 435 / 1080 375 / 875 500 / 875 Rivers 435 / 1080 375 / 875 500 / 875 Other: Weight 102.143 kg Patient Weight 01/11/24 23:59 Weight 102.143 kg Laboratory Results - last 24 hr 01/06/24 13:41: Strongyloides IgG Ab Negative 01/10/24 16:03: POC Glucose 204 H 01/10/24 20:55: POC Glucose 200 H 01/10/24 23:52: POC Glucose 176 H 01/11/24 05:48: POC Glucose 183 H 01/11/24 08:06: WBC 10.3 D, RBC 3.43 L, Hgb 12.4, Hct 37.3, MCV 108.8 H, MCH 36.1 H, MCHC 33.2, RDW 15.4, Plt Count 83 L D, MPV 9.2, Neut % (Auto) 80.3 H, Lymph % (Auto) 13.7, [place] % (Auto) 4.1, Eos % (Auto) 1.7, Baso % (Auto) 0.2, Neut # (Auto) 8.2 H, Lymph # (Auto) 1.4, [place] # (Auto) 0.4, Eos # (Auto) 0.2, Baso # (Auto) 0.0, Sodium 143, Potassium 3.9, Chloride 111 H, Carbon Dioxide 30, Anion Gap 5.9, BUN 71 H, Creatinine 2.70 H, Estimated Creat Clear 36, Estimated GFR 18 L*, Est GFR ( Amer) 22 L, Glucose 164 H, Calcium 8.7, Magnesium 2.7 H, Total Bilirubin 1.9 H, AST 190 H D, ALT 138 H D, Alkaline Phosphatase 69, Total Protein 6.4, Albumin 2.7 L, Globulin 3.7 H, Albumin/Globulin Ratio 0.7 L 01/11/24 11:15: POC Glucose 164 H I & O for Labs for Last 24 Hours: Intake & Output 01/08/24 01/09/24 01/10/24 01/11/24 23:59 23:59 23:59 23:59 Intake Total 2853.167 / 2953.167 3607.056 / 3866.056 1882.147 / 1882.147 50 / 50 Output Total 1090 / 1390 1520 / 1780 1635 / 1810 1375 / 1375 Balance 1763.167 / 5826.682 7448.056 / 2086.056 247.147 / 72.147 -1325 / -1325 Weight 102.194 kg 102.194 kg 102.194 kg 102.143 kg Microbiology Reports for the Last 24 Hours: Microbiology 01/05/24 13:41 Sputum - Expectorated Sputum Gram Stain - Final 01/05/24 13:41 Sputum - Expectorated Sputum Sputum Culture - Preliminary 01/06/24 05:00 Sputum - Endotracheal Tube Aspirate Gram Stain - Final 01/06/24 05:00 Sputum - Endotracheal Tube Aspirate Sputum Culture - Final Constitutional: Present no acute distress, obese, chronically ill appearing and cooperative Head: Present atraumatic and normocephalic ENT: Present normal exam Comment:: ET in place with OG. Respiratory: Present crackles (bilateral bases) and distant breath sounds; Absent rhonchi or wheezes Cardiac: Present Reg Rate and Rhythm GI: Present soft and normal bowel sounds; Absent distention or tenderness (female): Present deferred Extremities: Present normal inspection, full ROM and edema (1+ in BUE, no edema in legs) Skin: Present intact; Absent erythema Comment:: senile purpura, spider angiomas on chest Neuro: Present Grossly Intact, alert, awake, oriented x 3 and moves all extremities Comment:: globally weak Assessment and Plan *Assessment and plan (1) Pneumonia: Status: Acute Category: Medical Code(s): J18.9 - Pneumonia, unspecified organism (2) Acute hypoxic respiratory failure: Status: Acute Category: Medical Code(s): J96.01 - Acute respiratory failure with hypoxia (3) Elevated troponin: Status: Acute Category: Medical Code(s): R79.89 - Other specified abnormal findings of blood chemistry (4) Diabetes: Status: Acute Category: Medical Code(s): E11.9 - Type 2 diabetes mellitus without complications (5) ARDS (adult respiratory distress syndrome): Status: Acute Category: Medical Code(s): J80 - Acute respiratory distress syndrome (6) Cirrhosis: Status: Acute Category: Medical Code(s): K74.60 - Unspecified cirrhosis of liver (7) ANAHI (acute kidney injury): Status: Acute Category: Medical Code(s): N17.9 - Acute kidney failure, unspecified Plan Patient is a 58-year-old female with past medical history of diabetes mellitus, active tobacco use, hypertension who presented to hospital due to chest pain/shortness of breath. Patient was found to have elevated troponin, patient was referred to H&H for possible NSTEMI. Presented in septic shock. Intubated on arrival. Extubated 01/09. Tolerating nasal cannula oxygen. On 6 L currently this morning. She is alert and oriented x 3. States she is feeling somewhat better, still having some hemoptysis. Pulmonology and cardiology assisting with care. Continues to require inpatient management. Problems addressed as follows: Acute hypoxic respiratory failure due to pneumonia complicated by ARDS -Pulmonology consulted, appreciate their recommendations. Discussed case this morning. Continue supplemental oxygen, goal saturation greater 90%. Wean as tolerated, currently on 6 L with sats in the low to mid 90s. -Continue antibiotics with Zosyn x 7 days and azithromycin x 5 days. -Cultures pending. Follow Strongyloides antibody, urine strep, Legionella antigens - 40 mg prednisone p.o. daily - DuoNeb scheduled every 6 hours and Pulmicort every 12 hours scheduled - White cell count improved to 10 today, repeat CBC, CMP, magnesium ordered for the morning. -Chest x-ray obtained this morning, concern for effusion versus bilateral lower lobe edema. Will evaluate with bedside ultrasound -Speech eval today, recommend modified diet. See their note for full recommendations. NSTEMI Chronic heart failure with preserved ejection fraction, dilated RV -Consider Jardiance when kidney function improves - Cardiology consulted and assisting with care, recommend outpatient eval for ischemic disease Cirrhosis Thrombocytopenia -Holding DAPT and Lovenox due to bleeding -Platelets 83 this morning. -Cirrhosis with portal hypertension noted on CTA, will need referral to GI after discharge -Bili 1.9, AST 190, ALT 128, alk phos 69. Continue to monitor daily, no abdominal pain. ANAHI - likely Hemodynamic ATN versus ANAHI from sepsis -Creatinine 2.7 this morning, BUN 71. Monitor for improvement with initiation of oral fluids. -Making urine, over 1500 cc of urine output daily -Urine sodium, creatinine, urea pending Hyperglycemia due to uncontrolled diabetes mellitus - A1c 7.0 on admission. Continue sliding scale insulin with fingersticks every 6 - Lantus 10 units nightly, morning glucose improved at 164 Tobacco use - nicotine patch Holding anticoagulation in setting of hemoptysis Modified diet Full code
--- NOTE | 2024-01-11 14:35 | SW/DCPLANNER ---
Addendum entered by [facility] 01/18/24 14:25: Per Ida w/ [facility] Health services will start this week for this patient. Addendum entered by [facility] 01/18/24 10:27: The plan for this patient is to discharge home today. Patient information/order will be faxed to [facility] this AM: I will follow up once reviewed. Patient/family agree w/ discharge plan. Addendum entered by [facility] 01/17/24 14:26: Per Paula at [facility] this patient has home O2 + portable tank. Addendum entered by [facility] 01/17/24 14:08: Insurance has denied this patient acute level of care at [facility]. I spoke w/ patient at length regarding situation. I offered SNF level of care or home w/ home health services. Patient stated that she has spoke w/ her family and prefers to return home w/ family (someone will be present 17/05 and home health). Patient does not have a preference from home health agency and prefers to use [facility] for a rolling walker and home O2. I will continue to follow up w/ patient and MD. Addendum entered by [facility] 01/17/24 09:17: Per Emma reina/ [facility] precert is still pending at this time. Addendum entered by Tiffanie Pulido RN 01/14/24 17:11: Spoke with Emma this afternoon and she stated it is unlikely that auth will be obtained this weekend. I have the weekend admissions number and will check on auth over the weekend and update MD if patient is able to discharge. Addendum entered by [facility] 01/14/24 10:45: Updated patient information has been faxed to [facility]. Addendum entered by [facility] 01/13/24 07:48: Per [facility] precert was started on this patient yesterday late afternoon: once approved patient can discharge to [facility] acute care. Addendum entered by [facility] 01/12/24 13:36: Updated information has been faxed to [facility]. Addendum entered by [facility] 01/12/24 08:03: [facility] and [facility] can not accept this referral due to no female beds. [facility] stated that she will start prescreen process this AM for referral. I will continue to follow up w/ [facility], patient and MD. Original Note: I spoke w/ this patient regarding plans once medically stable for discharge. PT/OT evaluated patient and recommended SNF level of care. Patient is agreeable for information to be faxed to the following facilities: [facility], [facility] and [facility]. I will follow up w/ facilities, patient and MD once information is reviewed. Discharge date is unknown at this time.
[2024-01-11] MEDS: NICOTINE 7MG/24HRS PATCH 7 MG TD (14:36)
[2024-01-11] MEDS: predniSONE 20MG TAB 40 MG PO (14:36)
--- NOTE | 2024-01-11 15:53 | HMH.SLDYSPHA ---
Speech & Language Evaluation Speech/Language Dysphagia Evaluation Start: 01/11/24 15:35 Freq: ONCE Status: Active Protocol: Document 01/11/24 15:35 MANOLO (Rec: 01/11/24 15:53 [facility], [place]ARJE[place]ANNY [id number]) Dysphagia Assess/Goals/Plan Assessment Date of Evaluation: 01/11/24 Evaluation Type Initial Certification Assessment/Problems post-extubation protocol per MD order. Does Patient Qualify for Service Yes Qualify/Failure Comment Based on clinical observation throughout bedside assessment, Ms. Richmond would benefit from skilled speech therapy services to address mastication and manipulation of bolus to upgrade from pureed diet and trialing thin liquids. Recommendations PHYSICIAN CERTIFICATION: The specified therapy services are required, authorized, and reviewed every 30 days. Pt will be seen # times/week 3 for # weeks 4 Diet Recommendations Pureed Liquid Type Recommendations Kibler Consistency SL Swallow Guidelines Alt bite w/sip thru meal,High aspiration risk,Crush meds as allowed*,Oral care pre/post meals Crush Meds Crush all meds Dysphagia Swallow Precautions/Strategies Small Bites and Sips,Alternate Liquids/Solids Place Food on Either side of Mouth Additional Consults Recommended Other Comment ENT consult 2' aphonic vocal quality and hx of HNC. Plan Anticipate reaching STG in # weeks 2 Anticipate reaching LTG in # weeks 4 Pt/Guardian verbally ack understanding Yes of dx/prognosis/goals G -code Required No STG-Bolus Form/Tongue Movement Move tone in clockwise motion between 10 teeth & closed lips in # trials Protrude tongue to touch chin/nose with 10 tongue in # trials Push up with back of tongue against 10 depressor in # trials Push blade of tongue upward against 10 tongue depressor in # trials Push R/L lateral tongue border against 10 tongue depressor in # trials Protrude tongue tip into R/L cheek 10 against resistance in #trials STG-Bolus Form/Tone in Cheek Will prod 'oo' & 'ee' w/exaggerated lip 10 movement in # trials Will pucker lips, then move lips side to 10 side in # trials Will eat only foods that form a cohesive trialing MS bolus bolus w/wo cues Financial Services Manager Goals Diet puree with Liquids Kibler Thick Pt will be able to eat foods w/more Yes: trialing thins/MS solids normal consistency Education Instructions provided Discussed CSE results, diet recommendations, aspiration precautions, and ENT consult referral with pt, nursing, care management, and MD all of which expressed understanding . Pt/Caregiver able to recall information Able to recall/restate Reinforcement needed No Speech & Language HPI History Present Illness Description of Patient Problem WAD LUBRICATOR pulled following information from chart review and patient interview, Patient is a 58-year-old female with past medical history of diabetes mellitus, active tobacco use, hypertension who presented to hospital due to chest pain/ shortness of breath. Patient was found to have elevated troponin, patient was referred to H&H for possible NSTEMI. Patient at time of my evaluation denies active chest pain, she appears to be in shortness of breath. She was started on IV heparin, BiPAP and was sent to the [facility] for further evaluation. Pt reported hx of HNC and stated that aphonic vocal quality has been since diagnosis. CXR impressions reported, Interval improvement in the persistent bilateral pulmonary opacities, likely secondary to improving pulmonary edema. Pt/Caregiver Concerns Pt states she is a slow eater 2' difficulty masticating and manipulating solids 2' edentulous state. Rehab Services Assessed Speech therapy General Information General Current Food Consistancy NPO Dentition Edentulous Oxygen Status Room Air Patient Orientation Person,Place Ability to Follow Directions Good Communication Ability Mild Impairment Voice Voice Quality Hoarse,Weak,Loss of Voice Dysphagia:Food Presentation Evaluation Food Type Pureed,Mechanical Soft,Regular ,Liquid,Pudding,Other Normal/Thin Liquid Response Coughing after swallow,Clears throat,Wet voice Dysphagia Evaluation Mechanical Soft Difficulty chewing,Unable to Food Behavior Response form bolus,Unable to move bolus,Pocketing,Multiple swallow attempts,Residual on tongue Dysphagia Evaluation Summary Pt was seen sitting upright in the bed this afternoon for CSE. WAD LUBRICATOR provided extensive oral care 2' multiple scabs and dried blood and secretions within the oral cavity prior to administering bolus. Pt was extubated yesterday following multiple days of intubation since admit 01/04/24. Pt was adminstered all trialed bolus x3-5 to assess fatigue and consistency. Overt s/sxs of aspiration including coughing, clear throat, secretions, and wet vocal quality were noted with thin liquid trials with spoonfuls of water. Pt did fine with ice chips. Trials of NT liquids, pudding and puree had no s/sxs of discomfort of distress. When pt was presented with small MS solid trial, she had an increased latency period for chewing and manipulating bolus; following multiple swallow attempts and presentation of puree wash, she was still unable to clear bolus from oral cavity, based on this, it is recommended she be placed on a NT/pureed diet at this time. Pt would benefit from oral care pre/ post meals 2' dried blood and sores in mouth being baseline per pt report. Pt would also benefit from ENT referral. WAD LUBRICATOR will continue to f/u. Stroke Dysphagia Assessment PHYSICIAN CERTIFICATION: I certify the specified therapy services for Aylin Richmond are required, authorized, and reviewed every 30 days.
[2024-01-11 16:55] LABS: POC Glucose,Bedside 219 (70-110)
--- NOTE | 2024-01-11 17:23 | PC.NURSE ---
got pt up to chair with 3 assists for dinner, updated pt's son via telephone call, son stated would be here to visit soon, pt's sister in room, pt eating dinner at this time
[2024-01-11] MEDS: MELATONIN 5MG TABLET 10 MG PO (23:17)
[2024-01-12] VITALS (16 sets, daily range): BP systolic 111–142; BP diastolic 69–91; PULSE 72–90; RESP 13–20; TEMP 36.5–37.1; O2SAT 88–95; BMI 37.0
[2024-01-12] MEDS: PIPERACILLIN/TAZO 2.25 GM in 0.9 % SODIUM CHLORIDE 50 ML IV ×2 (02:54→09:02)
[2024-01-12 03:15] LABS: POC Glucose,Bedside 268 (70-110)
[2024-01-12] MEDS: humaLOG 100 UNITS/ML 3ML VIAL (SSI) SQ ×4 (05:50→20:02)
--- NOTE | 2024-01-12 06:00 | XR_ITS ---
PROCEDURE INFORMATION: Exam: XR Chest Exam date and time: 01/12/2024 5:54 AM Age: 58 years old Clinical indication: Shortness of breath; Additional info: Pneumonia TECHNIQUE: Imaging protocol: Radiologic exam of the chest. Views: 1 view. COMPARISON: CR XR CHEST PORTABLE 01/11/2024 6:40 AM FINDINGS: Lungs: Redemonstrated bibasilar patchy infiltration. Redemonstrated left hilar prominence. Redemonstrated blunting of the bilateral costophrenic angles, [id number]. Pleural spaces: See Lungs finding. Heart/Mediastinum: Redemonstrated unchanged prominence of the cardiomediastinal silhouette. Bones/joints: Unremarkable. IMPRESSION: Essentially unchanged exam with findings suggestive of vascular congestion, with bilateral pleural effusions, [id number]-right, superimposed left lower lobe pneumonia can not be excluded.
[2024-01-12 06:08] LABS: POC Glucose,Bedside 215 (70-110)
[2024-01-12] MEDS: IPRATROPIUM/ALBUTEROL 3 ML NEB IH ×4 (06:27→23:47)
[2024-01-12] MEDS: BUDESONIDE 0.5MG/2ML NEB 0.5 MG IH ×2 (06:27→18:17)
[2024-01-12 07:02] LABS: Basophils % 0.2 % (0.1-2.0); Eosinophils % 0.4 % (0.1-12.0); Hematocrit 38.2 % (37.0-47.0); Hemoglobin 12.6 g/dL (12.2-16.2); Lymphocytes # 0.8 K/mm3 (0.7-4.5); Lymphocytes % 7.7 % (10-50); Mean Corpuscular HGB Conc 32.9 g/dL (31.8-35.4); Mean Corpuscular Hemoglobin 35.9 pg (27.0-31.2); Mean Corpuscular Volume 109.3 fl (81-99); Monocytes # 0.4 K/mm3 (0.1-1.0); Neutrophils # 9.5 K/mm3 (1.8-7.8); Neutrophils % 87.8 % (37.0-80.0); Platelet Count 93 K/mm3 (142-424); Red Blood Count 3.49 M/mm3 (4.20-5.40); Red Cell Distribution Width 15.7 % (11.5-17.5); White Blood Count 10.8 K/mm3 (4.8-10.8)
[2024-01-12 07:11] LABS: Alanine Aminotransferase 134 U/L (12-78); Albumin Level 3.1 g/dl (3.5-5.0); Albumin/Globulin Ratio 0.8 (1.1-1.8); Alkaline Phosphatase 64 U/L (38-126); Aspartate Amino Transferase 111 U/L (14-36); Bilirubin,Total 1.7 mg/dl (0.2-1.3); Calcium 8.9 mg/dl (8.4-10.2); Chloride 112 mmol/L (98-107); Glucose 219 mg/dl (74-100); Phosphorous 4.9 mg/dl (2.5-4.5); Potassium 4.5 mmoL/L (3.5-5.1); Sodium 144 mmol/L (136-145); Total Protein,Serum 7.1 g/dl (6.3-8.2)
[2024-01-12 07:12] LABS: Magnesium 2.7 mg/dl (1.6-2.3)
[2024-01-12 07:13] LABS: Anion Gap 7.5 mEq/L (5-15); Blood Urea Nitrogen 68 mg/dl (7-17); Carbon Dioxide 29 mmol/L (22.0-30.0); Creatinine Clearance Estimated 38 mL/min (50-200); Estimated Glomerular Filt Rate 20 ml/min (>60); GFR (African American) 24 ML/MIN (>60)
[2024-01-12 07:18] LABS: MANUAL DIFFERENTIAL MANUAL DIFFERENTIAL (MANUAL DIFF)
[2024-01-12] MEDS: predniSONE 20MG TAB 40 MG PO (08:56)
[2024-01-12] MEDS: INSULIN GLARGINE 100 UNITS/ML 3ML FLEXPEN 10 UNIT SQ (08:57)
[2024-01-12 09:18] LABS: Eosinophils % 2 % (0-3); Lymphocytes % 6 % (10-50); Monocytes % 1 % (2-9); Neutrophils % 87 % (42-76); Total Cells Counted 100
[2024-01-12 09:42] LABS: Anisocytosis 1+; Macrocytosis 1+; Platelet Estimate Slight Decrease
[2024-01-12 09:43] LABS: Basophilic Stippling 1+
[2024-01-12 09:49] LABS: Polychromasia 1+
[2024-01-12] MEDS: DOCUSATE SODIUM 100 MG CAPSULE PO ×2 (12:00→20:02)
[2024-01-12] MEDS: FUROSEMIDE 40MG/4ML VIAL 40 MG IV (12:00)
[2024-01-12 12:07] LABS: POC Glucose,Bedside 198 (70-110)
[2024-01-12 14:08] LABS: Iron 239 ug/dL (37-170)
[2024-01-12 14:18] LABS: Total Iron Binding Capacity 253 ug/dL (265-497)
[2024-01-12] MEDS: NICOTINE 7MG/24HRS PATCH 7 MG TD (14:31)
[2024-01-12 14:44] LABS: Ferritin > 1000 ng/ml (11.1-264)
[2024-01-12] MEDS: MINERAL OIL ENEMA 133ML 133 ML RC (15:28)
[2024-01-12 16:25] LABS: POC Glucose,Bedside 307 (70-110)
--- NOTE | 2024-01-12 16:50 | PC.NURSE ---
PT IS RESTING IN BED. TOLERATED SITTING UP IN THE CHAIR FOR SEVERAL HOURS THIS SHIFT. 2 ASSIST TO GET BACK TO BED. TURNED AND REPOSITIONED. ANSWERS QUESTIONS CORRECTLY AND FOLLOWS COMMANDS. CATHETER DC'D THIS SHIFT. PT HAD A MODERATE/FORMED BOWEL MOVEMENT AFTER MINERAL OIL ENEMA. SCATTERED BRUISING NOTED. BLISTERS NOTED TO RFA. O2 SATURATION HAS MAINTAINED 90-94% ON 3.5 L NC. WILL CONTINUE TO MONITOR.
--- NOTE | 2024-01-12 18:18 | PC.NURSE ---
ROOM AIR SAT PT ONLY SATTING 89-90% ON 3.5L NC. DID NOT PUT PT ON ROOM AIR DUE TO THIS
--- NOTE | 2024-01-12 19:08 | EXP.ACUTE.PN ---
Subjective *Date: 01/13/24 *Time: 08:39 Interval history: Patient in bedside chair. Denies chest pain. States she is feeling a little better. Is upbeat mood today. Tolerating pur?ed diet. No fevers overnight. No nausea or vomiting. Still has not had bowel movement, but denies abdominal pain. Bowel regimen initiated. Medical Exam Vital signs and Labs for Last 24 Hours: Vital Signs Temp Pulse Pulse Resp BP Pulse Ox O2 Del Method 01/12/24 18:28 83 01/12/24 18:28 86 01/12/24 18:28 90 L Nasal Cannula 01/12/24 16:48 Nasal Cannula 01/12/24 16:00 98.7 F 81 18 142/83 H 94 L Nasal Cannula 01/12/24 15:00 Nasal Cannula 01/12/24 13:00 Nasal Cannula 01/12/24 12:00 98.5 F 79 20 130/87 90 L Nasal Cannula 01/12/24 11:42 Nasal Cannula 01/12/24 11:30 88 01/12/24 11:30 87 01/12/24 10:00 81 18 115/79 94 L Nasal Cannula 01/12/24 09:48 Nasal Cannula 01/12/24 08:50 75 93 L Nasal Cannula 01/12/24 08:00 84 16 119/80 91 L Nasal Cannula 01/12/24 08:00 90 01/12/24 07:44 98.1 F 01/12/24 06:27 92 L Nasal Cannula 01/12/24 06:27 75 01/12/24 06:27 75 01/12/24 06:00 76 17 128/91 H 94 L Nasal Cannula 01/12/24 04:00 72 01/12/24 04:00 13 95 Venturi Mask 01/12/24 04:00 97.7 F 01/12/24 00:02 82 01/12/24 00:01 83 01/12/24 00:00 77 01/12/24 00:00 79 18 111/77 88 L Nasal Cannula 01/11/24 22:00 84 18 141/91 H 92 L Nasal Cannula 01/11/24 20:00 92 H 01/11/24 20:00 98.8 F 01/11/24 19:59 92 L Nasal Cannula 01/11/24 19:58 91 H 17 139/89 91 L Nasal Cannula O2 Flow Rate FiO2 01/12/24 18:28 01/12/24 18:28 01/12/24 18:28 3.5 01/12/24 16:48 4 01/12/24 16:00 3.5 01/12/24 15:00 4 01/12/24 13:00 01/12/24 12:00 3.5 01/12/24 11:42 4 01/12/24 11:30 01/12/24 11:30 01/12/24 10:00 4 01/12/24 09:48 4 01/12/24 08:50 4 01/12/24 08:00 4 01/12/24 08:00 01/12/24 07:44 01/12/24 06:27 6 01/12/24 06:27 01/12/24 06:27 01/12/24 06:00 6 01/12/24 04:00 01/12/24 04:00 15 50 01/12/24 04:00 01/12/24 00:02 01/12/24 00:01 01/12/24 00:00 01/12/24 00:00 6 01/11/24 22:00 6 01/11/24 20:00 01/11/24 20:00 01/11/24 19:59 5 01/11/24 19:58 5 Intake and Output 01/12/24 01/12/24 01/12/24 07:59 15:59 23:59 Intake Total 270 / 605 335 / 605 Output Total 510 / 2160 1500 / 2160 150 / 2160 Balance -240 / -1555 -1165 / -1555 -150 / -1555 Intake: Intake, Oral Amount 270 / 605 335 / 605 Output: Output, Urine Amount (Catheter) 510 / 2160 1500 / 2160 150 / 2160 Rivers 510 / 2160 1500 / 2160 150 / 2160 Other: Number of Unmeasured Voids 0 Number of Bowel Movements 1 Weight 100.698 kg Patient Weight 01/12/24 23:59 Weight 100.698 kg Laboratory Results - last 24 hr 01/11/24 20:58: POC Glucose 268 H 01/12/24 05:42: Sodium 144, Potassium 4.5, Chloride 112 H, Carbon Dioxide 29, Anion Gap 7.5, BUN 68 H, Creatinine 2.50 H, Estimated Creat Clear 38, Estimated GFR 20 L, Est GFR ( Amer) 24 L, Glucose 219 H D, Calcium 8.9, Phosphorus 4.9 H, Magnesium 2.7 H, Total Bilirubin 1.7 H, AST 111 H D, ALT 134 H, Alkaline Phosphatase 64, Total Protein 7.1, Albumin 3.1 L D, Globulin 4.0 H, Albumin/Globulin Ratio 0.8 L 01/12/24 05:43: POC Glucose 215 H 01/12/24 05:48: WBC 10.8, RBC 3.49 L, Hgb 12.6, Hct 38.2, MCV 109.3 H, MCH 35.9 H, MCHC 32.9, RDW 15.7, Plt Count 93 L, MPV 9.0, Neut % (Auto) 87.8 H, Lymph % (Auto) 7.7 L, [place] % (Auto) 4.0, Eos % (Auto) 0.4, Baso % (Auto) 0.2, Neut # (Auto) 9.5 H, Lymph # (Auto) 0.8, [place] # (Auto) 0.4, Eos # (Auto) 0.0, Baso # (Auto) 0.0, Total Counted 100, Neutrophils % (Manual) 87 H, Band Neutrophils % 4.0, Lymphocytes % (Manual) 6 L, Monocytes % (Manual) 1 L, Eosinophils % (Manual) 2, Platelet Estimate Slight decrease, Polychromasia 1+, Basophilic Stippling 1+, Anisocytosis 1+, Macrocytosis 1+ 01/12/24 11:50: POC Glucose 198 H 01/12/24 12:30: Iron 239 H, TIBC 253 L, Iron Saturation 94.31154 H, Ferritin > 1000 H 01/12/24 16:16: POC Glucose 307 H* Vital Signs Temp Pulse Pulse Resp BP Pulse Ox O2 Del Method 01/11/24 14:00 85 16 138/96 H 92 L Nasal Cannula 01/11/24 13:00 77 16 117/78 92 L Nasal Cannula 01/11/24 12:00 81 17 120/82 93 L Nasal Cannula 01/11/24 11:16 97.9 F 01/11/24 11:15 80 01/11/24 11:15 77 01/11/24 11:00 80 16 119/83 92 L Nasal Cannula 01/11/24 11:00 Nasal Cannula 01/11/24 10:00 81 15 103/66 L 93 L Nasal Cannula 01/11/24 09:00 Nasal Cannula 01/11/24 09:00 79 14 105/68 L 92 L Nasal Cannula 01/11/24 08:00 92 L Nasal Cannula 01/11/24 08:00 80 01/11/24 08:00 82 15 121/79 93 L Nasal Cannula 01/11/24 08:00 98.3 F 01/11/24 07:00 91 H 16 92 L Nasal Cannula 01/11/24 06:29 91 L Nasal Cannula 01/11/24 06:29 83 01/11/24 06:29 81 01/11/24 06:00 81 17 132/81 91 L Nasal Cannula 01/11/24 05:00 98.2 F 81 16 133/90 92 L Nasal Cannula 01/11/24 04:00 80 01/11/24 04:00 17 95 Nasal Cannula 01/11/24 04:00 83 17 133/84 92 L Nasal Cannula 01/11/24 03:00 86 19 145/97 H 91 L Nasal Cannula 01/11/24 02:00 97.9 F 84 20 109/72 L 93 L 01/11/24 01:00 97.9 F 84 19 110/79 91 L Nasal Cannula 01/11/24 00:00 100 H 01/11/24 00:00 80 91 L Nasal Cannula 01/11/24 00:00 83 22 137/92 H 92 L Nasal Cannula 01/10/24 23:49 82 01/10/24 23:49 84 01/10/24 23:00 80 20 112/66 91 L Nasal Cannula 01/10/24 23:00 Nasal Cannula 01/10/24 22:00 97.6 F 82 16 112/66 92 L 01/10/24 21:00 85 15 126/89 91 L Nasal Cannula 01/10/24 21:00 Nasal Cannula 01/10/24 20:00 90 01/10/24 20:00 83 91 L Nasal Cannula 01/10/24 20:00 89 22 146/99 H 89 L Nasal Cannula 01/10/24 18:35 81 01/10/24 18:35 84 01/10/24 18:30 94 L Nasal Cannula 01/10/24 18:29 77 18 145/98 H 91 L Nasal Cannula 01/10/24 18:29 Nasal Cannula 01/10/24 17:38 78 18 144/97 H 93 L Nasal Cannula 01/10/24 16:53 75 18 143/90 H 94 L Nasal Cannula 01/10/24 16:53 Nasal Cannula 01/10/24 16:00 81 01/10/24 16:00 92 L Nasal Cannula 01/10/24 15:41 98.1 F 01/10/24 14:43 76 18 137/92 H 92 L Nasal Cannula 01/10/24 14:43 Nasal Cannula O2 Flow Rate 01/11/24 14:00 6 01/11/24 13:00 6 01/11/24 12:00 6 01/11/24 11:16 01/11/24 11:15 01/11/24 11:15 01/11/24 11:00 6 01/11/24 11:00 6 01/11/24 10:00 6 01/11/24 09:00 6 01/11/24 09:00 6 01/11/24 08:00 6 01/11/24 08:00 01/11/24 08:00 6 01/11/24 08:00 01/11/24 07:00 6 01/11/24 06:29 6 01/11/24 06:29 01/11/24 06:29 01/11/24 06:00 6 01/11/24 05:00 6 01/11/24 04:00 01/11/24 04:00 6 01/11/24 04:00 6 01/11/24 03:00 6 01/11/24 02:00 4 01/11/24 01:00 4 01/11/24 00:00 01/11/24 00:00 4 01/11/24 00:00 4 01/10/24 23:49 01/10/24 23:49 01/10/24 23:00 4 01/10/24 23:00 4 01/10/24 22:00 4 01/10/24 21:00 4 01/10/24 21:00 4 01/10/24 20:00 01/10/24 20:00 4 01/10/24 20:00 4 01/10/24 18:35 01/10/24 18:35 01/10/24 18:30 4 01/10/24 18:29 4 01/10/24 18:29 4 01/10/24 17:38 4 01/10/24 16:53 4 01/10/24 16:53 4 01/10/24 16:00 01/10/24 16:00 4 01/10/24 15:41 01/10/24 14:43 4 01/10/24 14:43 4 Intake and Output 01/10/24 01/11/24 01/11/24 23:59 07:59 15:59 Intake Total 300 / 1882.147 50 / 50 Output Total 435 / 1810 875 / 1375 500 / 1375 Balance -135 / 72.147 -875 / -1325 -450 / -1325 Intake: Intake, Total IV Amount 300 / 847 50 / 50 Azithromycin 500 mg In 0.9 % 250 / 250 Sodium Chloride 250 ml @ 250 mls/hr IV Q24H DOMINGA Rx#:[id number] Piperacillin/Tazo 2.25 gm In 0. 50 / 50 9 % Sodium Chloride 50 ml @ 100 mls/hr IV Q6H [facility]INGA Rx#:[id number] Piperacillin/Tazo 4.5 gm In 0.9 50 / 150 % Sodium Chloride 100 ml @ 200 mls/hr IV Q8H [facility]INGA Rx#:[id number] Output: Output, Urine Amount 500 / 500 Output, Urine Amount (Catheter) 435 / 1080 375 / 875 500 / 875 Rivers 435 / 1080 375 / 875 500 / 875 Other: Weight 102.143 kg Patient Weight 01/11/24 23:59 Weight 102.143 kg Laboratory Results - last 24 hr 01/06/24 13:41: Strongyloides IgG Ab Negative 01/10/24 16:03: POC Glucose 204 H 01/10/24 20:55: POC Glucose 200 H 01/10/24 23:52: POC Glucose 176 H 01/11/24 05:48: POC Glucose 183 H 01/11/24 08:06: WBC 10.3 D, RBC 3.43 L, Hgb 12.4, Hct 37.3, MCV 108.8 H, MCH 36.1 H, MCHC 33.2, RDW 15.4, Plt Count 83 L D, MPV 9.2, Neut % (Auto) 80.3 H, Lymph % (Auto) 13.7, [place] % (Auto) 4.1, Eos % (Auto) 1.7, Baso % (Auto) 0.2, Neut # (Auto) 8.2 H, Lymph # (Auto) 1.4, [place] # (Auto) 0.4, Eos # (Auto) 0.2, Baso # (Auto) 0.0, Sodium 143, Potassium 3.9, Chloride 111 H, Carbon Dioxide 30, Anion Gap 5.9, BUN 71 H, Creatinine 2.70 H, Estimated Creat Clear 36, Estimated GFR 18 L*, Est GFR ( Amer) 22 L, Glucose 164 H, Calcium 8.7, Magnesium 2.7 H, Total Bilirubin 1.9 H, AST 190 H D, ALT 138 H D, Alkaline Phosphatase 69, Total Protein 6.4, Albumin 2.7 L, Globulin 3.7 H, Albumin/Globulin Ratio 0.7 L 01/11/24 11:15: POC Glucose 164 H I & O for Labs for Last 24 Hours: Intake & Output 01/09/24 01/10/24 01/11/24 01/12/24 23:59 23:59 23:59 23:59 Intake Total 3607.056 / 3866.056 1882.147 / 1882.147 340 / 340 605 / 605 Output Total 1520 / 1780 1635 / 1810 1925 / 2200 2160 / 2160 Balance 2087.056 / 2086.056 247.147 / 72.147 -1585 / -1860 -1555 / -1555 Weight 102.194 kg 102.194 kg 102.143 kg 100.698 kg Intake & Output 01/08/24 01/09/24 01/10/24 01/11/24 23:59 23:59 23:59 23:59 Intake Total 2853.167 / 2953.167 3607.056 / 3866.056 1882.147 / 1882.147 50 / 50 Output Total 1090 / 1390 1520 / 1780 1635 / 1810 1375 / 1375 Balance 1763.167 / 8435.513 9780.056 / 2086.056 247.147 / 72.147 -1325 / -1325 Weight 102.194 kg 102.194 kg 102.194 kg 102.143 kg Microbiology Reports for the Last 24 Hours: Microbiology 01/05/24 13:41 Sputum - Expectorated Sputum Gram Stain - Final 01/05/24 13:41 Sputum - Expectorated Sputum Sputum Culture - Final Microbiology 01/05/24 13:41 Sputum - Expectorated Sputum Gram Stain - Final 01/05/24 13:41 Sputum - Expectorated Sputum Sputum Culture - Preliminary 01/06/24 05:00 Sputum - Endotracheal Tube Aspirate Gram Stain - Final 01/06/24 05:00 Sputum - Endotracheal Tube Aspirate Sputum Culture - Final Constitutional: Present no acute distress, obese, chronically ill appearing and cooperative Head: Present atraumatic and normocephalic ENT: Present normal exam Respiratory: Present crackles (bilateral bases) and distant breath sounds; Absent rhonchi or wheezes Cardiac: Present Reg Rate and Rhythm GI: Present soft and normal bowel sounds; Absent distention or tenderness (female): Present deferred Extremities: Present normal inspection, full ROM and edema (1+ in BUE, no edema in legs) Skin: Present intact; Absent erythema Comment:: senile purpura, spider angiomas on chest, trace edema upper and lower extremities Neuro: Present Grossly Intact, alert, awake, oriented x 3 and moves all extremities Comment:: globally weak Assessment and Plan *Assessment and plan (1) Pneumonia: Status: Acute Category: Medical Code(s): J18.9 - Pneumonia, unspecified organism (2) Acute hypoxic respiratory failure: Status: Acute Category: Medical Code(s): J96.01 - Acute respiratory failure with hypoxia (3) Elevated troponin: Status: Acute Category: Medical Code(s): R79.89 - Other specified abnormal findings of blood chemistry (4) Diabetes: Status: Acute Category: Medical Code(s): E11.9 - Type 2 diabetes mellitus without complications (5) ARDS (adult respiratory distress syndrome): Status: Acute Category: Medical Code(s): J80 - Acute respiratory distress syndrome (6) Cirrhosis: Status: Acute Category: Medical Code(s): K74.60 - Unspecified cirrhosis of liver (7) ANAHI (acute kidney injury): Status: Acute Category: Medical Code(s): N17.9 - Acute kidney failure, unspecified (8) Pleural effusion: Status: Acute Category: Medical Code(s): J90 - Pleural effusion, not elsewhere classified Plan Patient is a 58-year-old female with past medical history of diabetes mellitus, active tobacco use, hypertension who presented to hospital due to chest pain/shortness of breath. Patient was found to have elevated troponin, patient was referred to H&H for possible NSTEMI. Presented in septic shock. Intubated on arrival. Extubated 01/09. Tolerating nasal cannula oxygen. Weaned to 2 L. Alert and oriented x 3. Getting up to bedside chair. Working with therapy and speech. Tolerating pur?ed diet. Hemoptysis more or less resolved. Continues to require inpatient management, referral begun for rehab placement. Further discussion with family at bedside today and with patient elicits that she has family history of amyloidosis and hemochromatosis. Brother from cirrhosis from hemochromatosis. Sister at bedside has regular paracenteses performed due to ascites from cirrhosis due to hemochromatosis. Discussed further workup while admitted for this condition. Problems addressed as follows: Acute hypoxic respiratory failure due to pneumonia complicated by ARDS -Pulmonology consulted, appreciate their recommendations. Discussed case this morning. Continue supplemental oxygen, goal saturation greater 90%. Wean as tolerated, currently on 4 L with sats in the low to mid 90s. -Continue antibiotics with Zosyn x 7 days, completed azithromycin -Cultures pending. Extremities antibody negative. Urine strep and Legionella pending - 40 mg prednisone p.o. daily - DuoNeb scheduled every 6 hours and Pulmicort every 12 hours scheduled - White cell count improved to 10 today, repeat CBC, CMP, magnesium ordered for the morning. -Chest x-ray obtained this morning, effusions present. Airspace disease appears to be improving. -Gentle diuresis x 1 today with Lasix 40 mg IV. NSTEMI Chronic heart failure with preserved ejection fraction, dilated RV -Consider Jardiance when kidney function improves - Cardiology consulted and assisting with care, recommend outpatient eval for ischemic disease Cirrhosis Thrombocytopenia Suspected hemochromatosis -Holding DAPT and Lovenox due to bleeding -Platelets 93 this morning. -Cirrhosis with portal hypertension noted on CTA, will need referral to GI after discharge -Iron studies obtained showing severely elevated iron levels and iron saturation along with elevated ferritin. Will obtain hemochromatosis gene screen. Given family history, diabetes, cirrhosis on imaging, iron studies, most consistent with hemochromatosis and development of bronze diabetes . -Bili 1.7, AST 111, ALT 134, alk phos 68. Albumin 3.1. Continue to monitor daily, no abdominal pain. ANAHI - likely Hemodynamic ATN versus ANAHI from sepsis -Creatinine 2.5 this morning, BUN 68. Given effusions and edema in arms, will cautiously diurese x 1 with Lasix 40 mg IV. -Patient is +3.7 L since admission. -2 L in the past 24 hours. Auto diuresing well. -Discontinue Rivers -Making urine, over 1500 cc of urine output daily -Urine sodium, creatinine, urea pending Hyperglycemia due to uncontrolled diabetes mellitus - A1c 7.0 on admission. Continue sliding scale insulin with fingersticks every 6 hrs, receiving greater than 30 units daily of sliding scale insulin - Lantus 10 units nightly, morning glucose 219 Tobacco use - nicotine patch Holding anticoagulation in setting of hemoptysis Modified diet Full code
[2024-01-12 20:05] LABS: POC Glucose,Bedside 222 (70-110)
[2024-01-12] MEDS: MELATONIN 5MG TABLET 10 MG PO (21:03)
[2024-01-13] VITALS (9 sets, daily range): BP systolic 99–154; BP diastolic 53–82; PULSE 68–78; RESP 16–18; TEMP 36.7–37.4; O2SAT 90–96; BMI 36.9
--- NOTE | 2024-01-13 04:22 | PC.NURSE ---
Patient has slept intermittently throughout shift. Patient is A/O x3. Patient has used walker and x2 assist to pivot to BSC. Patient is wearing 3.5L O2 per NC with O2 sats >90%. Patient has voiced no c/o of pain/SOA thus far in shift. Bed alarm on for safety, call light within reach.
[2024-01-13] MEDS: humaLOG 100 UNITS/ML 3ML VIAL (SSI) SQ ×4 (05:07→20:11)
[2024-01-13 05:11] LABS: POC Glucose,Bedside 151 (70-110)
--- NOTE | 2024-01-13 06:00 | XR_ITS ---
PROCEDURE INFORMATION: Exam: XR Chest Exam date and time: 01/13/2024 5:56 AM Age: 58 years old Clinical indication: Shortness of breath; Additional info: Pneumonia TECHNIQUE: Imaging protocol: Radiologic exam of the chest. Views: 1 view. COMPARISON: CR XR CHEST PORTABLE 01/12/2024 5:54 AM FINDINGS: Lungs: Redemonstrated bibasilar patchy infiltration. Redemonstrated left hilar prominence. Pleural spaces: Redemonstrated blunting of the bilateral costophrenic angles, adta-[id number]-[id number]-right. Heart/Mediastinum: Redemonstrated unchanged prominence of the cardiomediastinal silhouette. Bones/joints: Unremarkable. IMPRESSION: Stable examination suggesting vascular congestion, superimposed infection can not be excluded.
[2024-01-13] MEDS: IPRATROPIUM/ALBUTEROL 3 ML NEB IH ×2 (06:38→19:55)
[2024-01-13] MEDS: BUDESONIDE 0.5MG/2ML NEB 0.5 MG IH (06:38)
[2024-01-13 06:54] LABS: Basophils % 0.3 % (0.1-2.0); Eosinophils # 0.3 K/mm3 (0.0-0.4); Eosinophils % 2.9 % (0.1-12.0); Hematocrit 35.4 % (37.0-47.0); Hemoglobin 11.7 g/dL (12.2-16.2); Lymphocytes # 1.4 K/mm3 (0.7-4.5); Lymphocytes % 13.2 % (10-50); Mean Corpuscular HGB Conc 32.9 g/dL (31.8-35.4); Mean Corpuscular Hemoglobin 36.3 pg (27.0-31.2); Mean Corpuscular Volume 110.3 fl (81-99); Mean Platelet Volume 8.9 fl (7.4-10.4); Monocytes # 0.4 K/mm3 (0.1-1.0); Monocytes % 3.8 % (1.7-9.3); Neutrophils # 8.3 K/mm3 (1.8-7.8); Neutrophils % 79.9 % (37.0-80.0); Platelet Count 97 K/mm3 (142-424); Red Blood Count 3.21 M/mm3 (4.20-5.40); White Blood Count 10.4 K/mm3 (4.8-10.8)
[2024-01-13 07:03] LABS: Albumin Level 2.9 g/dl (3.5-5.0); Albumin/Globulin Ratio 0.8 (1.1-1.8); Alkaline Phosphatase 55 U/L (38-126); Anion Gap 5.6 mEq/L (5-15); Bilirubin,Total 1.7 mg/dl (0.2-1.3); Blood Urea Nitrogen 62 mg/dl (7-17); Calcium 8.7 mg/dl (8.4-10.2); Carbon Dioxide 33 mmol/L (22.0-30.0); Chloride 109 mmol/L (98-107); Creatinine Clearance Estimated 40 mL/min (50-200); Estimated Glomerular Filt Rate 21 ml/min (>60); GFR (African American) 25 ML/MIN (>60); Globulin 3.7 g/dL (1.3-3.2); Glucose 124 mg/dl (74-100); Potassium 3.6 mmoL/L (3.5-5.1); Sodium 144 mmol/L (136-145); Total Protein,Serum 6.6 g/dl (6.3-8.2)
[2024-01-13 07:04] LABS: Alanine Aminotransferase 111 U/L (12-78); Aspartate Amino Transferase 83 U/L (14-36); Magnesium 2.3 mg/dl (1.6-2.3)
[2024-01-13] MEDS: DOCUSATE SODIUM 100 MG CAPSULE PO ×2 (07:55→20:11)
[2024-01-13] MEDS: predniSONE 20MG TAB 40 MG PO (07:55)
[2024-01-13] MEDS: INSULIN GLARGINE 100 UNITS/ML 3ML FLEXPEN 10 UNIT SQ (07:56)
--- NOTE | 2024-01-13 08:39 | EXP.ACUTE.PN ---
Subjective *Date: 01/13/24 *Time: 14:23 Interval history: No acute respiratory events overnight. Stable oxygen requirements. No nausea or vomiting. Had a bowel movement in the past 24 hours. Tolerating good p.o. intake. In bedside chair on rounds. Medical Exam Vital signs and Labs for Last 24 Hours: Vital Signs Temp Pulse Pulse Resp BP Pulse Ox O2 Del Method 01/13/24 08:06 Nasal Cannula 01/13/24 08:00 Nasal Cannula 01/13/24 07:37 98.0 F 78 18 124/78 92 L Nasal Cannula 01/13/24 07:00 Nasal Cannula 01/13/24 06:38 72 01/13/24 06:38 73 01/13/24 06:38 90 L Nasal Cannula 01/13/24 05:00 Nasal Cannula 01/13/24 04:00 99.3 F 75 16 116/82 90 L Nasal Cannula 01/13/24 03:00 Nasal Cannula 01/13/24 01:00 Nasal Cannula 01/13/24 00:00 98.4 F 75 16 99/53 L 92 L Nasal Cannula 01/12/24 23:52 74 01/12/24 23:52 74 01/12/24 23:00 Nasal Cannula 01/12/24 21:00 Nasal Cannula 01/12/24 20:00 Nasal Cannula 01/12/24 19:44 98.4 F 86 18 126/69 91 L Nasal Cannula 01/12/24 18:28 83 01/12/24 18:28 86 01/12/24 18:28 90 L Nasal Cannula 01/12/24 16:48 Nasal Cannula 01/12/24 16:00 98.7 F 81 18 142/83 H 94 L Nasal Cannula 01/12/24 15:00 Nasal Cannula 01/12/24 13:00 Nasal Cannula 01/12/24 12:00 98.5 F 79 20 130/87 90 L Nasal Cannula 01/12/24 11:42 Nasal Cannula 01/12/24 11:30 88 01/12/24 11:30 87 01/12/24 10:00 81 18 115/79 94 L Nasal Cannula 01/12/24 09:48 Nasal Cannula 01/12/24 08:50 75 93 L Nasal Cannula O2 Flow Rate 01/13/24 08:06 4 01/13/24 08:00 4 01/13/24 07:37 4 01/13/24 07:00 3.5 01/13/24 06:38 01/13/24 06:38 01/13/24 06:38 4 01/13/24 05:00 3.5 01/13/24 04:00 3.5 01/13/24 03:00 3.5 01/13/24 01:00 3.5 01/13/24 00:00 01/12/24 23:52 01/12/24 23:52 01/12/24 23:00 3.5 01/12/24 21:00 3.5 01/12/24 20:00 3.5 01/12/24 19:44 3.5 01/12/24 18:28 01/12/24 18:28 01/12/24 18:28 3.5 01/12/24 16:48 4 01/12/24 16:00 3.5 01/12/24 15:00 4 01/12/24 13:00 01/12/24 12:00 3.5 01/12/24 11:42 4 01/12/24 11:30 01/12/24 11:30 01/12/24 10:00 4 01/12/24 09:48 4 01/12/24 08:50 4 Intake and Output 01/12/24 01/13/24 01/13/24 23:59 07:59 15:59 Intake Total 335 / 335 Output Total 150 / 2160 0 / 0 Balance -150 / -1555 0 / 335 335 / 335 Intake: Intake, Oral Amount 335 / 335 Output: Output, Urine Amount 0 / 0 0 / 0 Output, Urine Amount (Catheter) 150 / 2160 [place] 150 / 2160 Other: Number of Unmeasured Voids 1 1 Number of Bowel Movements 1 1 Weight 100.516 kg Patient Weight 01/13/24 23:59 Weight 100.516 kg Laboratory Results - last 24 hr 01/12/24 05:48: Total Counted 100, Neutrophils % (Manual) 87 H, Band Neutrophils % 4.0, Lymphocytes % (Manual) 6 L, Monocytes % (Manual) 1 L, Eosinophils % (Manual) 2, Platelet Estimate Slight decrease, Polychromasia 1+, Basophilic Stippling 1+, Anisocytosis 1+, Macrocytosis 1+ 01/12/24 11:50: POC Glucose 198 H 01/12/24 12:30: Iron 239 H, TIBC 253 L, Iron Saturation 94.92898 H, Ferritin > 1000 H 01/12/24 16:16: POC Glucose 307 H* 01/12/24 19:57: POC Glucose 222 H 01/13/24 05:04: POC Glucose 151 H 01/13/24 06:32: WBC 10.4, RBC 3.21 L, Hgb 11.7 L, Hct 35.4 L, MCV 110.3 H, MCH 36.3 H, MCHC 32.9, RDW 16.0, Plt Count 97 L, MPV 8.9, Neut % (Auto) 79.9, Lymph % (Auto) 13.2, [place] % (Auto) 3.8, Eos % (Auto) 2.9, Baso % (Auto) 0.3, Neut # (Auto) 8.3 H, Lymph # (Auto) 1.4, [place] # (Auto) 0.4, Eos # (Auto) 0.3, Baso # (Auto) 0.0, Sodium 144, Potassium 3.6, Chloride 109 H, Carbon Dioxide 33 H, Anion Gap 5.6, BUN 62 H, Creatinine 2.40 H, Estimated Creat Clear 40, Estimated GFR 21 L, Est GFR ( Amer) 25 L, Glucose 124 H, Calcium 8.7, Magnesium 2.3 D, Total Bilirubin 1.7 H, AST 83 H D, ALT 111 H, Alkaline Phosphatase 55, Total Protein 6.6, Albumin 2.9 L, Globulin 3.7 H, Albumin/Globulin Ratio 0.8 L I & O for Labs for Last 24 Hours: Intake & Output 01/10/24 01/11/24 01/12/24 01/13/24 23:59 23:59 23:59 23:59 Intake Total 1882.147 / 1882.147 340 / 340 605 / 605 335 / 335 Output Total 1635 / 1810 1925 / 2200 2160 / 2160 0 / 0 Balance 247.147 / 72.147 -1585 / -1860 -1555 / -1555 335 / 335 Weight 102.194 kg 102.143 kg 100.698 kg 100.516 kg Constitutional: Present no acute distress, obese, chronically ill appearing and cooperative Head: Present atraumatic and normocephalic ENT: Present normal exam Respiratory: Present crackles (bilateral bases) and distant breath sounds; Absent rhonchi or wheezes Cardiac: Present Reg Rate and Rhythm GI: Present soft and normal bowel sounds; Absent distention or tenderness (female): Present deferred Extremities: Present normal inspection, full ROM and edema (1+ in BUE, no edema in legs) Skin: Present intact; Absent erythema Comment:: senile purpura, spider angiomas on chest, trace edema upper and lower extremities Neuro: Present Grossly Intact, alert, awake, oriented x 3 and moves all extremities Comment:: globally weak Assessment and Plan *Assessment and plan (1) Pneumonia: Status: Acute Category: Medical Code(s): J18.9 - Pneumonia, unspecified organism (2) Acute hypoxic respiratory failure: Status: Acute Category: Medical Code(s): J96.01 - Acute respiratory failure with hypoxia (3) Elevated troponin: Status: Acute Category: Medical Code(s): R79.89 - Other specified abnormal findings of blood chemistry (4) Diabetes: Status: Acute Category: Medical Code(s): E11.9 - Type 2 diabetes mellitus without complications (5) ARDS (adult respiratory distress syndrome): Status: Acute Category: Medical Code(s): J80 - Acute respiratory distress syndrome (6) Cirrhosis: Status: Acute Category: Medical Code(s): K74.60 - Unspecified cirrhosis of liver (7) ANAHI (acute kidney injury): Status: Acute Category: Medical Code(s): N17.9 - Acute kidney failure, unspecified (8) Pleural effusion: Status: Acute Category: Medical Code(s): J90 - Pleural effusion, not elsewhere classified (9) Hemochromatosis: Status: Acute Category: Medical Code(s): E83.119 - Hemochromatosis, unspecified Plan Patient is a 58-year-old female with past medical history of diabetes mellitus, active tobacco use, hypertension who presented to hospital due to chest pain/shortness of breath. Patient was found to have elevated troponin, patient was referred to [facility] for possible NSTEMI. Presented in septic shock. Intubated on arrival. Extubated 01/09. Tolerating nasal cannula oxygen. Weaned to 2 L. Alert and oriented x 3. Getting up to bedside chair. Working with therapy and speech. Tolerating pur?ed diet. Hemoptysis more or less resolved. Continues to require inpatient management, referral begun for rehab placement. Further discussion with family at bedside today and with patient elicits that she has family history of amyloidosis and hemochromatosis. Brother from cirrhosis from hemochromatosis. Sister at bedside has regular paracenteses performed due to ascites from cirrhosis due to hemochromatosis. Discussed further workup while admitted for this condition. Problems addressed as follows: Acute hypoxic respiratory failure due to pneumonia complicated by ARDS -Pulmonology consulted, appreciate their recommendations. Discussed case this morning. Continue supplemental oxygen, goal saturation greater 90%. Wean as tolerated, currently on 4 L with sats in the low to mid 90s. -Patient has completed antibiotics with Zosyn and azithromycin -Cultures pending negative to date. Strongyloides antibody negative - 40 mg prednisone p.o. daily - DuoNeb scheduled every 6 hours and Pulmicort every 12 hours scheduled -White cell count normal at 10. repeat CBC, CMP, magnesium ordered for the morning. -Chest x-ray obtained this morning, effusions present. Airspace disease appears to be improving. -Gentle diuresis with Lasix 40 mg IV daily, goal negative daily. -1.5 L yesterday NSTEMI Chronic heart failure with preserved ejection fraction, dilated RV - Consider Jardiance when kidney function improves - Cardiology consulted and assisting with care, recommend outpatient eval for ischemic disease Cirrhosis Thrombocytopenia Suspected hemochromatosis -Holding DAPT and Lovenox due to bleeding -Platelets 93 this morning. -Cirrhosis with portal hypertension noted on CTA, will need referral to GI after discharge -Iron studies obtained showing severely elevated iron levels and iron saturation along with elevated ferritin. Will obtain hemochromatosis gene screen. Given family history, diabetes, cirrhosis on imaging, iron studies, most consistent with hemochromatosis and development of bronze diabetes . -Bili 1.7, AST 83, ALT 111, alk phos 55, Continue to monitor daily, no abdominal pain. -Repeat INR ordered for the morning ANAHI - likely Hemodynamic ATN versus ANAHI from sepsis -Creatinine 2.4 this morning, BUN 62. Given effusions and edema in arms, diurese as above -Patient is +3.7 L since admission. -1.5 L in the past 24 hours. Auto diuresing well. -Urine sodium, creatinine, urea pending Hyperglycemia due to uncontrolled diabetes mellitus - A1c 7.0 on admission. Continue sliding scale insulin with fingersticks every 6 hrs, receiving greater than 30 units daily of sliding scale insulin - Lantus 10 units nightly, morning glucose 124 Tobacco use - nicotine patch Therapy working with patient daily, awaiting placement at rehab. Stable to discharge once accepted. Have referred patient to GI at for further workup of her cirrhosis and hemochromatosis. Appointment scheduled for the end of February Holding anticoagulation in setting of hemoptysis and thrombocytopenia Modified diet Full code
--- NOTE | 2024-01-13 09:53 | EXP.PULM.PN ---
Subjective *Date: 01/13/24 *Time: 12:36 Interval history: No acute respiratory events overnight. Stable oxygen requirements Pulmonology Exam Inpatient Vital signs and Labs for Last 24 Hours: Temp Pulse Resp BP Pulse Ox O2 Del Method O2 Flow Rate 98.0 F 78 18 124/78 92 L Nasal Cannula 4 01/13/24 07:37 01/13/24 07:37 01/13/24 07:37 01/13/24 07:37 01/13/24 07:37 01/13/24 08:06 01/13/24 08:06 FiO2 50 01/12/24 04:00 Laboratory Results - last 24 hr 01/12/24 11:50: POC Glucose 198 H 01/12/24 12:30: Iron 239 H, TIBC 253 L, Iron Saturation 94.31035 H, Ferritin > 1000 H 01/12/24 16:16: POC Glucose 307 H* 01/12/24 19:57: POC Glucose 222 H 01/13/24 05:04: POC Glucose 151 H 01/13/24 06:32: WBC 10.4, RBC 3.21 L, Hgb 11.7 L, Hct 35.4 L, MCV 110.3 H, MCH 36.3 H, MCHC 32.9, RDW 16.0, Plt Count 97 L, MPV 8.9, Neut % (Auto) 79.9, Lymph % (Auto) 13.2, [place] % (Auto) 3.8, Eos % (Auto) 2.9, Baso % (Auto) 0.3, Neut # (Auto) 8.3 H, Lymph # (Auto) 1.4, [place] # (Auto) 0.4, Eos # (Auto) 0.3, Baso # (Auto) 0.0, Sodium 144, Potassium 3.6, Chloride 109 H, Carbon Dioxide 33 H, Anion Gap 5.6, BUN 62 H, Creatinine 2.40 H, Estimated Creat Clear 40, Estimated GFR 21 L, Est GFR ( Amer) 25 L, Glucose 124 H, Calcium 8.7, Magnesium 2.3 D, Total Bilirubin 1.7 H, AST 83 H D, ALT 111 H, Alkaline Phosphatase 55, Total Protein 6.6, Albumin 2.9 L, Globulin 3.7 H, Albumin/Globulin Ratio 0.8 L I & O for Labs for Last 24 Hours: Intake & Output 01/10/24 01/11/24 01/12/24 01/13/24 23:59 23:59 23:59 23:59 Intake Total 1882.147 / 1882.147 340 / 340 605 / 605 335 / 335 Output Total 1635 / 1810 1925 / 2200 2160 / 2160 0 / 0 Balance 247.147 / 72.147 -1585 / -1860 -1555 / -1555 335 / 335 Weight 225 lb 4.787 oz 225 lb 3 oz 222 lb 221 lb 9.6 oz Microbiology Reports for the Last 24 Hours: Microbiology 01/05/24 13:41 Sputum - Expectorated Sputum Gram Stain - Final 01/05/24 13:41 Sputum - Expectorated Sputum Sputum Culture - Preliminary 01/06/24 05:00 Sputum - Endotracheal Tube Aspirate Gram Stain - Final 01/06/24 05:00 Sputum - Endotracheal Tube Aspirate Sputum Culture - Preliminary 01/06/24 11:15 Bronchial Washings - Left Lower Lobe Gram Stain - Final 01/06/24 11:15 Bronchial Washings - Left Lower Lobe Bronchoalveolar Lavage Culture - Final Constitutional: Present moderate distress Comment:: Intubated and Sedated Head: Present normocephalic and atraumatic ENT: Present normal exam, normal oropharynx and mucous membranes moist Neck: Present normal inspection and full ROM Respiratory: Present respiratory distress, rhonchi and able to speak in complete sentences; Absent wheezes Cardiac: Present S1/S2, Tachycardia and radial pulses present GI: Present soft and distention; Absent tenderness or guarding Rectal (female): Present deferred (female): Present deferred Skin: Present intact; Absent cyanosis or jaundice Neuro: Present alert, awake and oriented x 3 Comment:: Intubated and sedated Extremities: Present normal inspection; Absent clubbing or cyanosis Psychiatric: Present normal affect and cooperative Assessment and Plan *Assessment and plan (1) Acute hypoxic respiratory failure: Status: Acute Category: Medical Code(s): J96.01 - Acute respiratory failure with hypoxia (2) Pneumonia: Status: Acute Category: Medical Code(s): J18.9 - Pneumonia, unspecified organism (3) On mechanically assisted ventilation: Status: Acute Category: Medical Code(s): Z99.11 - Dependence on respirator [ventilator] status (4) ARDS (adult respiratory distress syndrome): Status: Acute Category: Medical Code(s): J80 - Acute respiratory distress syndrome Plan Ms. Richmond is a 66-year-old female greater than [id number] smoking history and carries a diagnosis of COPD baseline using albuterol/nebulizers presented to the ER for worsening chest pain and shortness of breath and pulmonary was called for further evaluation and management. Chest x-ray upon admission bilateral lower lobe airspace disease, left greater than right. Interstitial thickening is also noted, likely a combination of airspace disease and volume overload. Neutrophilic leukocytosis upon admission. Serum ammonia also elevated upon admission. Patient admission was initiated on BiPAP therapy. No blood gas available. On initial examination patient is awake responding to verbal commands. Weaned from BiPAP to high flow nasal cannula. Wheezing on auscutation. CTA personally reviewed, no evidence of pulmonary embolism bilateral lower lobe dense consolidative changes left greater than right. Small effusions also noted. Significant emphysematous changes also noted. Calcified lymphadenopathy noted. Patient experienced significant respiratory distress overnight on 01/05/2024 needing intubation and mechanical ventilatory support. SPENCER screen negative. BAL eosinophil count 0. Nasal MRSA PCR negative. Improvement in status s/p extubation on 01/10/2024. Tolerating nasal cannula well since then. Completed 7-day course of Zosyn and 5-day course of azithromycin. Urine strep and Legionella resulted negative. Interval update: Chest x-ray Improving infiltrates. Continued show left mediastinal prominence. Stable. Primary team evaluating for possible hemochromatosis etiology for noted cirrhosis. Plan: Complete Zosyn x 7 days for HAP. Cultures negative so far. Chest x-ray improving. Continue nasal oxygen supplementation to maintain O2 saturation goal of 90% and above. Currently on 4 L. Trelegy 100 inhaler along with DuoNebs every 6 hours on as-needed basis Aspiration precautions PT OT # Thank you for involving pulmonary in this patient care. Will continue to follow.
[2024-01-13 10:12] LABS: POC Glucose,Bedside 206 (70-110)
[2024-01-13] MEDS: FUROSEMIDE 40MG/4ML VIAL 40 MG IV (11:54)
[2024-01-13] MEDS: NICOTINE 7MG/24HRS PATCH 7 MG TD (12:50)
--- NOTE | 2024-01-13 15:00 | PC.NURSE ---
PT. aox4, up with assist times 2 to BSC, 02-4L NC, PT AND OT working with patient.
[2024-01-13 16:07] LABS: POC Glucose,Bedside 335 (70-110)
--- NOTE | 2024-01-13 18:49 | PC.NURSE ---
93% on 3L.
--- NOTE | 2024-01-13 19:50 | PC.NURSE ---
ROOM AIR SAT PT DROPPED TO 88% ON ROOM AIR. PLACED PT BACK ON 3L NC WITH A SAT OF 93%
[2024-01-13 20:05] LABS: POC Glucose,Bedside 171 (70-110)
[2024-01-13] MEDS: MELATONIN 5MG TABLET 10 MG PO (20:11)
--- NOTE | 2024-01-13 22:01 | PC.NURSE ---
Addendum entered by Oh Cadena RN 01/13/24 22:52: patient dropped to 4LNC with sats >90. Original Note: attempted to wean patient O2. Added CPT to patient to monitor O2 sat. Transitioned patient from 3LNC to 2LNC with a quick drop to low 80's. bumped patient up to 4LNC and unable to recover. RT Stephany in room at this time. Patient bumped to 6LNC and slowly recovering to 89%. unable to wean at this time.
[2024-01-14] VITALS (9 sets, daily range): BP systolic 79–114; BP diastolic 45–70; PULSE 59–70; RESP 17–21; TEMP 36.7–36.9; O2SAT 90–92; BMI 36.9
--- NOTE | 2024-01-14 04:14 | PC.NURSE ---
Hospitalist notified of BP trending down during the night and is now at 79/45 (MAP 60). Pt was sleeping well prior to midnight and 0400 vitals, no new symptoms during this time. No new orders, continue to monitor.
--- NOTE | 2024-01-14 06:00 | XR_ITS ---
PROCEDURE INFORMATION: Exam: XR Chest Exam date and time: 01/14/2024 6:03 AM Age: 58 years old Clinical indication: Shortness of breath; Additional info: Pneumonia TECHNIQUE: Imaging protocol: Radiologic exam of the chest. Views: 1 view. COMPARISON: CR XR CHEST PORTABLE 01/13/2024 5:56 AM FINDINGS: Lungs: Bilateral perihilar and bibasilar consolidation, left greater than right is re-identified. Pleural spaces: There are bilateral pleural effusions, left greater than right unchanged. Heart/Mediastinum: The heart remains enlarged. Bones/joints: There are degenerative changes of the shoulders and spine. IMPRESSION: 1. Stable findings most consistent with volume overload/pulmonary edema. 2. A superimposed basilar pneumonia is likely present as well.
[2024-01-14] MEDS: FLUTICASONE/UMECLIDIN/VILANTER 100/62.5/25MCG INHALER 1 PUFF IH (06:29)
[2024-01-14 06:30] LABS: POC Glucose,Bedside 139 (70-110)
--- NOTE | 2024-01-14 06:46 | PC.NURSE ---
Pt slept well throughout the night. She was able to get OOB to BSC with assist x 1 and walker. Pt wearing 4L/NC and O2 sats have been 90-91%. Breath sounds diminished throughout bilaterally. BP was rechecked after pt was fully awake and now WNL.
[2024-01-14 07:11] LABS: Basophils % 0.4 % (0.1-2.0); Eosinophils # 0.3 K/mm3 (0.0-0.4); Eosinophils % 2.5 % (0.1-12.0); Hematocrit 37.6 % (37.0-47.0); Hemoglobin 11.9 g/dL (12.2-16.2); Lymphocytes # 1.6 K/mm3 (0.7-4.5); Lymphocytes % 15.1 % (10-50); Mean Corpuscular HGB Conc 31.7 g/dL (31.8-35.4); Mean Corpuscular Hemoglobin 35.3 pg (27.0-31.2); Mean Corpuscular Volume 111.2 fl (81-99); Mean Platelet Volume 8.5 fl (7.4-10.4); Monocytes # 0.3 K/mm3 (0.1-1.0); Monocytes % 3.3 % (1.7-9.3); Neutrophils # 8.2 K/mm3 (1.8-7.8); Neutrophils % 78.7 % (37.0-80.0); Platelet Count 126 K/mm3 (142-424); Red Blood Count 3.39 M/mm3 (4.20-5.40); Red Cell Distribution Width 16.4 % (11.5-17.5); White Blood Count 10.4 K/mm3 (4.8-10.8)
[2024-01-14 07:12] LABS: Albumin/Globulin Ratio 0.8 (1.1-1.8); Alkaline Phosphatase 60 U/L (38-126); Anion Gap 6.6 mEq/L (5-15); Bilirubin,Total 1.6 mg/dl (0.2-1.3); Blood Urea Nitrogen 57 mg/dl (7-17); Calcium 8.7 mg/dl (8.4-10.2); Carbon Dioxide 35 mmol/L (22.0-30.0); Chloride 104 mmol/L (98-107); Creatinine Clearance Estimated 45 mL/min (50-200); Estimated Glomerular Filt Rate 24 ml/min (>60); GFR (African American) 29 ML/MIN (>60); Globulin 3.7 g/dL (1.3-3.2); Glucose 133 mg/dl (74-100); Magnesium 2.1 mg/dl (1.6-2.3); Potassium 3.6 mmoL/L (3.5-5.1); Sodium 142 mmol/L (136-145); Total Protein,Serum 6.7 g/dl (6.3-8.2)
[2024-01-14 07:13] LABS: Alanine Aminotransferase 109 U/L (12-78); Aspartate Amino Transferase 82 U/L (14-36)
[2024-01-14 07:14] LABS: INR 1.11 (0.9-1.1); Prothrombin Time 11.9 seconds (10.1-12.5)
[2024-01-14] MEDS: DOCUSATE SODIUM 100 MG CAPSULE PO ×2 (07:32→20:18)
[2024-01-14] MEDS: predniSONE 20MG TAB 40 MG PO (07:32)
[2024-01-14] MEDS: FUROSEMIDE 40MG/4ML VIAL 40 MG IV (07:33)
[2024-01-14] MEDS: INSULIN GLARGINE 100 UNITS/ML 3ML FLEXPEN 15 UNIT SQ (07:33)
[2024-01-14] MEDS: ENOXAPARIN 30MG/0.3ML SYRINGE 30 MG SQ (08:40)
[2024-01-14] MEDS: MIDODRINE HCL 5 MG TABLET PO ×3 (08:44→20:17)
[2024-01-14 09:12] LABS: Creatinine,Urine Random 43 mg/dL (Not Estab.); Urea Nitrogen,Urine Random 432 mg/dl (Not Estab.)
--- NOTE | 2024-01-14 09:37 | EXP.PULM.PN ---
Subjective *Date: 01/14/24 *Time: 10:59 Interval history: No acute respiratory events overnight. Pulmonology Exam Inpatient Vital signs and Labs for Last 24 Hours: Temp Pulse Resp BP Pulse Ox O2 Del Method O2 Flow Rate 98.4 F 68 20 108/64 L 92 L Nasal Cannula 3 01/14/24 08:00 01/14/24 08:00 01/14/24 08:00 01/14/24 08:00 01/14/24 08:00 01/14/24 08:05 01/14/24 08:05 FiO2 50 01/12/24 04:00 Laboratory Results - last 24 hr 01/10/24 08:22: Ur Random Urea Nitrogn 432, Urine Creatinine 43, Urine Sodium 104.0 H 01/13/24 10:00: POC Glucose 206 H 01/13/24 15:58: POC Glucose 335 H* 01/13/24 19:59: POC Glucose 171 H 01/14/24 06:23: WBC 10.4, RBC 3.39 L, Hgb 11.9 L, Hct 37.6, MCV 111.2 H, MCH 35.3 H, MCHC 31.7 L, RDW 16.4, Plt Count 126 L D, MPV 8.5, Neut % (Auto) 78.7, Lymph % (Auto) 15.1, [place] % (Auto) 3.3, Eos % (Auto) 2.5, Baso % (Auto) 0.4, Neut # (Auto) 8.2 H, Lymph # (Auto) 1.6, [place] # (Auto) 0.3, Eos # (Auto) 0.3, Baso # (Auto) 0.0, PT 11.9, INR 1.11 H, Sodium 142, Potassium 3.6, Chloride 104, Carbon Dioxide 35 H, Anion Gap 6.6, BUN 57 H, Creatinine 2.10 H, Estimated Creat Clear 45, Estimated GFR 24 L, Est GFR ( Amer) 29 L, Glucose 133 H, POC Glucose 139 H, Calcium 8.7, Magnesium 2.1, Total Bilirubin 1.6 H, AST 82 H, ALT 109 H, Alkaline Phosphatase 60, Total Protein 6.7, Albumin 3.0 L, Globulin 3.7 H, Albumin/Globulin Ratio 0.8 L I & O for Labs for Last 24 Hours: Intake & Output 01/11/24 01/12/24 01/13/24 01/14/24 23:59 23:59 23:59 23:59 Intake Total 340 / 340 605 / 605 730 / 730 Output Total 1925 / 2200 2160 / 2160 1050 / 1050 650 / 650 Balance -1585 / -1860 -1555 / -1555 -320 / -320 -650 / -650 Weight 225 lb 3 oz 222 lb 221 lb 9.6 oz 221 lb 12.56 oz Microbiology Reports for the Last 24 Hours: Microbiology 01/05/24 13:41 Sputum - Expectorated Sputum Gram Stain - Final 01/05/24 13:41 Sputum - Expectorated Sputum Sputum Culture - Preliminary 01/06/24 05:00 Sputum - Endotracheal Tube Aspirate Gram Stain - Final 01/06/24 05:00 Sputum - Endotracheal Tube Aspirate Sputum Culture - Preliminary 01/06/24 11:15 Bronchial Washings - Left Lower Lobe Gram Stain - Final 01/06/24 11:15 Bronchial Washings - Left Lower Lobe Bronchoalveolar Lavage Culture - Final Constitutional: Present moderate distress Comment:: Intubated and Sedated Head: Present normocephalic and atraumatic ENT: Present normal exam, normal oropharynx and mucous membranes moist Neck: Present normal inspection and full ROM Respiratory: Present respiratory distress, rhonchi and able to speak in complete sentences; Absent wheezes Cardiac: Present S1/S2, Tachycardia and radial pulses present GI: Present soft and distention; Absent tenderness or guarding Rectal (female): Present deferred (female): Present deferred Skin: Present intact; Absent cyanosis or jaundice Neuro: Present alert, awake and oriented x 3 Extremities: Present normal inspection; Absent clubbing or cyanosis Psychiatric: Present normal affect and cooperative Assessment and Plan *Assessment and plan (1) Acute hypoxic respiratory failure: Status: Acute Category: Medical Code(s): J96.01 - Acute respiratory failure with hypoxia (2) Pneumonia: Status: Acute Category: Medical Code(s): J18.9 - Pneumonia, unspecified organism (3) On mechanically assisted ventilation: Status: Acute Category: Medical Code(s): Z99.11 - Dependence on respirator [ventilator] status (4) ARDS (adult respiratory distress syndrome): Status: Acute Category: Medical Code(s): J80 - Acute respiratory distress syndrome Plan Ms. Richmond is a 58-year-old female greater than [id number] smoking history and carries a diagnosis of COPD baseline using albuterol/nebulizers presented to the ER for worsening chest pain and shortness of breath and pulmonary was called for further evaluation and management. Chest x-ray upon admission bilateral lower lobe airspace disease, left greater than right. Interstitial thickening is also noted, likely a combination of airspace disease and volume overload. Neutrophilic leukocytosis upon admission. Serum ammonia also elevated upon admission. Patient admission was initiated on BiPAP therapy. No blood gas available. On initial examination patient is awake responding to verbal commands. Weaned from BiPAP to high flow nasal cannula. Wheezing on auscutation. CTA personally reviewed, no evidence of pulmonary embolism bilateral lower lobe dense consolidative changes left greater than right. Small effusions also noted. Significant emphysematous changes also noted. Calcified lymphadenopathy noted. Patient experienced significant respiratory distress overnight on 01/05/2024 needing intubation and mechanical ventilatory support. SPENCER screen negative. BAL eosinophil count 0. Nasal MRSA PCR negative. Improvement in status s/p extubation on 01/10/2024. Tolerating nasal cannula well since then. Completed 7-day course of Zosyn and 5-day course of azithromycin. Urine strep and Legionella resulted negative. Interval update: No acute respiratory events overnight. Continues with diuresis. Chest x-ray continues to show bilateral pleural effusions left greater than right. Improving airspace disease. Slight worsening ox requirements, needing 4 L nasal intermittent O2 saturation goal of 90% and above. Stable leukocytosis. Afebrile. Hemodynamically stable. Completed 7-day course of treatment for hospital-acquired pneumonia. Plan: Continue nasal oxygen supplementation to maintain O2 saturation goal of 90% and above. Currently on 4 L. Will closely monitor. Trelegy 100 inhaler along with DuoNebs every 6 hours on as-needed basis Aspiration precautions PT OT # Thank you for involving pulmonary in this patient care. Will continue to follow.
[2024-01-14] MEDS: humaLOG 100 UNITS/ML 3ML VIAL (SSI) SQ ×3 (10:39→20:18)
[2024-01-14 10:50] LABS: POC Glucose,Bedside 252 (70-110)
[2024-01-14] MEDS: NICOTINE 7MG/24HRS PATCH 7 MG TD (12:54)
--- NOTE | 2024-01-14 15:43 | EXP.ACUTE.PN ---
Subjective *Date: 01/14/24 *Time: 15:43 Interval history: No acute respiratory events overnight. Stable oxygen requirements. No nausea or vomiting. Having bowel movements. Ambulating with therapy today using a walker. Medical Exam Vital signs and Labs for Last 24 Hours: Vital Signs Temp Pulse Pulse Resp BP Pulse Ox O2 Del Method 01/14/24 15:39 Nasal Cannula 01/14/24 14:12 Nasal Cannula 01/14/24 12:31 Room Air 01/14/24 12:00 68 19 114/70 91 L Nasal Cannula 01/14/24 09:37 Nasal Cannula 01/14/24 08:05 Nasal Cannula 01/14/24 08:00 98.4 F 68 20 108/64 L 92 L Nasal Cannula 01/14/24 08:00 Nasal Cannula 01/14/24 06:45 Nasal Cannula 01/14/24 05:00 97/63 L 01/14/24 05:00 Nasal Cannula 01/14/24 04:00 98.4 F 63 20 79/45 L 90 L Nasal Cannula 01/14/24 03:00 Nasal Cannula 01/14/24 01:00 Nasal Cannula 01/14/24 00:00 98.1 F 70 17 89/56 L 91 L Nasal Cannula 01/13/24 23:40 Nasal Cannula 01/13/24 21:00 Nasal Cannula 01/13/24 20:00 Nasal Cannula 01/13/24 20:00 98.4 F 73 16 117/66 92 L Nasal Cannula 01/13/24 19:55 68 01/13/24 19:55 74 01/13/24 19:51 93 L Nasal Cannula 01/13/24 16:55 Nasal Cannula 01/13/24 16:00 98.4 F 75 18 154/79 H 96 Nasal Cannula O2 Flow Rate 01/14/24 15:39 4 01/14/24 14:12 4 01/14/24 12:31 01/14/24 12:00 01/14/24 09:37 3 01/14/24 08:05 3 01/14/24 08:00 4 01/14/24 08:00 3 01/14/24 06:45 4 01/14/24 05:00 01/14/24 05:00 4 01/14/24 04:00 4 01/14/24 03:00 4 01/14/24 01:00 4 01/14/24 00:00 01/13/24 23:40 4 01/13/24 21:00 3 01/13/24 20:00 3 01/13/24 20:00 4 01/13/24 19:55 01/13/24 19:55 01/13/24 19:51 3 01/13/24 16:55 01/13/24 16:00 4 Intake and Output 01/13/24 01/14/24 01/14/24 23:59 07:59 15:59 Intake Total 335 / 730 360 / 360 Output Total 400 / 1050 300 / 650 350 / 650 Balance -65 / -320 -300 / -290 10 / -290 Intake: Intake, Oral Amount 335 / 730 360 / 360 Output: Output, Urine Amount 400 / 1050 300 / 650 350 / 650 Other: Number of Voids 1 Number of Unmeasured Voids 1 1 1 Weight 100.6 kg Patient Weight 01/14/24 23:59 Weight 100.6 kg Laboratory Results - last 24 hr 01/10/24 08:22: Ur Random Urea Nitrogn 432, Urine Creatinine 43, Urine Sodium 104.0 H 01/13/24 15:58: POC Glucose 335 H* 01/13/24 19:59: POC Glucose 171 H 01/14/24 06:23: WBC 10.4, RBC 3.39 L, Hgb 11.9 L, Hct 37.6, MCV 111.2 H, MCH 35.3 H, MCHC 31.7 L, RDW 16.4, Plt Count 126 L D, MPV 8.5, Neut % (Auto) 78.7, Lymph % (Auto) 15.1, [place] % (Auto) 3.3, Eos % (Auto) 2.5, Baso % (Auto) 0.4, Neut # (Auto) 8.2 H, Lymph # (Auto) 1.6, [place] # (Auto) 0.3, Eos # (Auto) 0.3, Baso # (Auto) 0.0, PT 11.9, INR 1.11 H, Sodium 142, Potassium 3.6, Chloride 104, Carbon Dioxide 35 H, Anion Gap 6.6, BUN 57 H, Creatinine 2.10 H, Estimated Creat Clear 45, Estimated GFR 24 L, Est GFR ( Amer) 29 L, Glucose 133 H, POC Glucose 139 H, Calcium 8.7, Magnesium 2.1, Total Bilirubin 1.6 H, AST 82 H, ALT 109 H, Alkaline Phosphatase 60, Total Protein 6.7, Albumin 3.0 L, Globulin 3.7 H, Albumin/Globulin Ratio 0.8 L 01/14/24 10:32: POC Glucose 252 H I & O for Labs for Last 24 Hours: Intake & Output 01/11/24 01/12/24 01/13/24 01/14/24 23:59 23:59 23:59 23:59 Intake Total 340 / 340 605 / 605 730 / 730 360 / 360 Output Total 1925 / 2200 2160 / 2160 1050 / 1050 650 / 650 Balance -1585 / -1860 -1555 / -1555 -320 / -320 -290 / -290 Weight 102.143 kg 100.698 kg 100.516 kg 100.6 kg Constitutional: Present no acute distress, obese, chronically ill appearing and cooperative Head: Present atraumatic and normocephalic ENT: Present normal exam Respiratory: Present crackles (bilateral bases, intervally improved); Absent rhonchi or wheezes Cardiac: Present Reg Rate and Rhythm GI: Present soft and normal bowel sounds; Absent distention or tenderness Extremities: Present normal inspection, full ROM and edema (Trace in ankles. No edema in arms) Skin: Present intact; Absent erythema Comment:: senile purpura, spider angiomas on chest, 3 blisters on right forearm, no sign of infection. Neuro: Present Grossly Intact, alert, awake, oriented x 3 and moves all extremities Comment:: globally weak Assessment and Plan *Assessment and plan (1) Pneumonia: Status: Acute Category: Medical Code(s): J18.9 - Pneumonia, unspecified organism (2) Acute hypoxic respiratory failure: Status: Acute Category: Medical Code(s): J96.01 - Acute respiratory failure with hypoxia (3) Elevated troponin: Status: Acute Category: Medical Code(s): R79.89 - Other specified abnormal findings of blood chemistry (4) Diabetes: Status: Acute Category: Medical Code(s): E11.9 - Type 2 diabetes mellitus without complications (5) ARDS (adult respiratory distress syndrome): Status: Acute Category: Medical Code(s): J80 - Acute respiratory distress syndrome (6) Cirrhosis: Status: Acute Category: Medical Code(s): K74.60 - Unspecified cirrhosis of liver (7) ANAHI (acute kidney injury): Status: Acute Category: Medical Code(s): N17.9 - Acute kidney failure, unspecified (8) Pleural effusion: Status: Acute Category: Medical Code(s): J90 - Pleural effusion, not elsewhere classified (9) Hemochromatosis: Status: Acute Category: Medical Code(s): E83.119 - Hemochromatosis, unspecified Plan Patient is a 58-year-old female with past medical history of diabetes mellitus, active tobacco use, hypertension who presented to hospital due to chest pain/shortness of breath. Patient was found to have elevated troponin, patient was referred to [facility] for possible NSTEMI. Presented in septic shock. Intubated within 48 hours of arrival due to failure BiPAP, extubated 01/09. Tolerating nasal cannula oxygen. Weaning oxygen. On 3 L today. Working with therapy, slowly walking with a walker. In bedside chair on initial exam. Tolerating soft mechanical diet. Continues to require inpatient management, referral begun for rehab placement. Problems addressed as follows: Acute hypoxic respiratory failure due to pneumonia complicated by ARDS -Pulmonology consulted, appreciate their recommendations. Discussed case this morning. Continue supplemental oxygen, goal saturation greater 90%. Wean as tolerated, currently on 3L. -Patient has completed antibiotics with Zosyn and azithromycin -Cultures pending negative to date. Strongyloides antibody negative -Last dose of prednisone this morning, will discontinue thereafter - DuoNeb scheduled every 6 hours and Pulmicort every 12 hours scheduled -White cell count normal at 10. repeat CBC, CMP, magnesium ordered for the morning. -Chest x-ray obtained this morning, effusions present. Airspace disease appears to be improving. -Gentle diuresis with Lasix 40 mg IV daily, goal negative daily. -1 L yesterday -Blood pressure soft overnight, resume midodrine 5 mg 3 times a day to maintain appropriate blood pressure for diuresis in the setting of cirrhosis NSTEMI Chronic heart failure with preserved ejection fraction, dilated RV - Consider Jardiance when kidney function improves - Cardiology consulted and assisting with care, recommend outpatient eval for ischemic disease Cirrhosis Thrombocytopenia Suspected hemochromatosis -Holding DAPT -Resume Lovenox, renally dosed 30 mg subcu x 1 today. Will consider dosing daily if platelets stable tomorrow and no further hemoptysis or signs of bleeding -Platelets 126 this morning. -Cirrhosis with portal hypertension noted on CTA, referred to [facility] at patient's request, has appointment scheduled the end of February -Iron studies obtained showing severely elevated iron levels and iron saturation along with elevated ferritin. Will obtain hemochromatosis gene screen. Given family history, diabetes, cirrhosis on imaging, iron studies, most consistent with hemochromatosis and development of bronze diabetes . - Liver function stable with bilirubin 1.6, AST 82, ALT 109, alk phos 60, albumin 3.0, INR 1.1 ANAHI - likely Hemodynamic ATN versus ANAHI from sepsis -Kidney function better with BUN 57, creatinine 2.1. Given effusions and edema in arms, diurese as above -Patient is +2L since admission. -1L in the past 24 hours. diuresing well. Hyperglycemia due to uncontrolled diabetes mellitus - A1c 7.0 on admission. Continue sliding scale insulin with fingersticks every 6 hrs, received 29 units of sliding scale yesterday -Increase Lantus to 20 units nightly, morning glucose 133 Tobacco use - nicotine patch Therapy working with patient daily, awaiting placement at rehab. Stable to discharge once accepted. Lovenox renally dosed Modified diet Full code
[2024-01-14 16:52] LABS: POC Glucose,Bedside 281 (70-110)
--- NOTE | 2024-01-14 19:48 | PC.NURSE ---
ROOM AIR SAT PT DROPPED TO 85% ON ROOM AIR. PLACED PT BACK ON 4L NC WITH A SAT OF 92%
[2024-01-14 20:16] LABS: POC Glucose,Bedside 194 (70-110)
[2024-01-15] VITALS (7 sets, daily range): BP systolic 78–129; BP diastolic 46–79; PULSE 54–70; RESP 16–20; TEMP 36.5–36.8; O2SAT 91–98; BMI 36.2
--- NOTE | 2024-01-15 06:00 | XR_ITS ---
PROCEDURE INFORMATION: Exam: XR Chest Exam date and time: 01/15/2024 5:59 AM Age: 58 years old Clinical indication: Shortness of breath; Additional info: Pneumonia mechanical ventilation TECHNIQUE: Imaging protocol: Radiologic exam of the chest. Views: Portable AP chest x-ray, 1 view. COMPARISON: CR XR CHEST PORTABLE 01/14/2024 6:03 AM FINDINGS: Lungs: Persistent perihilar and lower lung zone opacity. Pleural spaces: Persistent pleural effusions with costophrenic angle blunting. No evidence of pneumothorax. Heart/Mediastinum: Heart size appears prominent but is likely exaggerated by the portable AP technique. Obscured cardiac borders. Bones/joints: No acute osseous abnormality. IMPRESSION: Persistent pulmonary edema versus pneumonia and bilateral pleural effusions.
[2024-01-15] MEDS: humaLOG 100 UNITS/ML 3ML VIAL (SSI) SQ ×3 (06:29→20:28)
[2024-01-15 07:08] LABS: POC Glucose,Bedside 163 (70-110)
[2024-01-15 07:26] LABS: Basophils % 0.3 % (0.1-2.0); Eosinophils # 0.3 K/mm3 (0.0-0.4); Eosinophils % 2.7 % (0.1-12.0); Hematocrit 37.3 % (37.0-47.0); Hemoglobin 12.3 g/dL (12.2-16.2); Lymphocytes # 2.1 K/mm3 (0.7-4.5); Lymphocytes % 17.5 % (10-50); Mean Corpuscular Hemoglobin 36.7 pg (27.0-31.2); Mean Corpuscular Volume 111.2 fl (81-99); Mean Platelet Volume 8.7 fl (7.4-10.4); Monocytes # 0.4 K/mm3 (0.1-1.0); Monocytes % 3.6 % (1.7-9.3); Neutrophils # 8.9 K/mm3 (1.8-7.8); Neutrophils % 75.9 % (37.0-80.0); Platelet Count 131 K/mm3 (142-424); Red Blood Count 3.35 M/mm3 (4.20-5.40); Red Cell Distribution Width 16.8 % (11.5-17.5); White Blood Count 11.7 K/mm3 (4.8-10.8)
[2024-01-15 07:35] LABS: Alanine Aminotransferase 110 U/L (12-78); Albumin Level 3.2 g/dl (3.5-5.0); Albumin/Globulin Ratio 0.8 (1.1-1.8); Alkaline Phosphatase 65 U/L (38-126); Anion Gap 4.3 mEq/L (5-15); Aspartate Amino Transferase 74 U/L (14-36); Bilirubin,Total 1.5 mg/dl (0.2-1.3); Blood Urea Nitrogen 50 mg/dl (7-17); Calcium 8.9 mg/dl (8.4-10.2); Carbon Dioxide 35 mmol/L (22.0-30.0); Chloride 103 mmol/L (98-107); Creatinine Clearance Estimated 47 mL/min (50-200); Estimated Glomerular Filt Rate 25 ml/min (>60); GFR (African American) 31 ML/MIN (>60); Globulin 3.8 g/dL (1.3-3.2); Glucose 155 mg/dl (74-100); Potassium 3.3 mmoL/L (3.5-5.1); Sodium 139 mmol/L (136-145)
[2024-01-15] MEDS: INSULIN GLARGINE 100 UNITS/ML 3ML FLEXPEN 20 UNIT SQ (08:21)
[2024-01-15] MEDS: MIDODRINE HCL 5 MG TABLET PO ×3 (08:23→20:28)
[2024-01-15] MEDS: FLUTICASONE/UMECLIDIN/VILANTER 100/62.5/25MCG INHALER 1 PUFF IH (08:25)
[2024-01-15 11:20] LABS: POC Glucose,Bedside 166 (70-110)
[2024-01-15] MEDS: NICOTINE 7MG/24HRS PATCH 7 MG TD (14:21)
--- NOTE | 2024-01-15 14:36 | EXP.PN ---
Subjective *Date: 01/15/24 *Time: 14:36 Interval history: on 3l NC, patient was seen and evaluated at the bedside. No reported acute events overnight, denies chest pain, shortness of breath, nausea, vomiting, abdominal pain. Exam Data for Last 24 hours Vital signs and Labs for Last 24 Hours: Temp Pulse Resp BP Pulse Ox O2 Del Method O2 Flow Rate 97.7 F 64 20 121/72 98 Nasal Cannula 3 01/15/24 07:54 01/15/24 12:29 01/15/24 12:29 01/15/24 12:29 01/15/24 12:29 01/15/24 12:46 01/15/24 12:46 FiO2 50 01/12/24 04:00 Laboratory Results - last 24 hr 01/14/24 16:43: POC Glucose 281 H 01/14/24 20:06: POC Glucose 194 H 01/15/24 06:24: POC Glucose 163 H 01/15/24 06:29: WBC 11.7 H, RBC 3.35 L, Hgb 12.3, Hct 37.3, MCV 111.2 H, MCH 36.7 H, MCHC 33.0, RDW 16.8, Plt Count 131 L, MPV 8.7, Neut % (Auto) 75.9, Lymph % (Auto) 17.5, [place] % (Auto) 3.6, Eos % (Auto) 2.7, Baso % (Auto) 0.3, Neut # (Auto) 8.9 H, Lymph # (Auto) 2.1, [place] # (Auto) 0.4, Eos # (Auto) 0.3, Baso # (Auto) 0.0, Sodium 139, Potassium 3.3 L, Chloride 103, Carbon Dioxide 35 H, Anion Gap 4.3 L, BUN 50 H, Creatinine 2.00 H, Estimated Creat Clear 47, Estimated GFR 25 L, Est GFR ( Amer) 31 L, Glucose 155 H, Calcium 8.9, Magnesium 2.0, Total Bilirubin 1.5 H, AST 74 H, ALT 110 H, Alkaline Phosphatase 65, Total Protein 7.0, Albumin 3.2 L, Globulin 3.8 H, Albumin/Globulin Ratio 0.8 L 01/15/24 11:00: POC Glucose 166 H I & O for Last 24 hours: Intake & Output 01/12/24 01/13/24 01/14/24 01/15/24 23:59 23:59 23:59 23:59 Intake Total 605 / 605 730 / 730 720 / 720 660 / 660 Output Total 2160 / 2160 1050 / 1050 650 / 650 0 / 0 Balance -1555 / -1555 -320 / -320 70 / 70 660 / 660 Weight 100.698 kg 100.516 kg 100.6 kg 98.656 kg Constitutional Comments: intubated *Routine HEENT Exam Head: Present normocephalic Eye: Present EOMI and PERRL ENT: Present mucous membranes moist *Routine Neck Exam Neck: Present supple; Absent lymphadenopathy *Routine Respiratory Exam Respiratory: Present diminished air movement Comments: mechanical breathing sounds *Routine Cardiovascular Exam Cardiovascular: Present RRR *Routine Abdominal Exam Abdominal: Present soft and normoactive bowel sounds; Absent tenderness *Routine Extremities Exam Extremities: Absent cyanosis, clubbing or edema *Routine Skin Exam Skin: Present warm; Absent rash *Routine Neurological Exam Neurological: Present alert and oriented X3 Assessment and Plan *Assessment and plan (1) Pneumonia: Status: Acute Category: Medical Code(s): J18.9 - Pneumonia, unspecified organism (2) Acute hypoxic respiratory failure: Status: Acute Category: Medical Code(s): J96.01 - Acute respiratory failure with hypoxia (3) Elevated troponin: Status: Acute Category: Medical Code(s): R79.89 - Other specified abnormal findings of blood chemistry (4) Diabetes: Status: Acute Category: Medical Code(s): E11.9 - Type 2 diabetes mellitus without complications (5) ARDS (adult respiratory distress syndrome): Status: Acute Category: Medical Code(s): J80 - Acute respiratory distress syndrome (6) Cirrhosis: Status: Acute Category: Medical Code(s): K74.60 - Unspecified cirrhosis of liver (7) ANAHI (acute kidney injury): Status: Acute Category: Medical Code(s): N17.9 - Acute kidney failure, unspecified (8) Pleural effusion: Status: Acute Category: Medical Code(s): J90 - Pleural effusion, not elsewhere classified (9) Hemochromatosis: Status: Acute Category: Medical Code(s): E83.119 - Hemochromatosis, unspecified Plan Patient is a 58-year-old female with past medical history of diabetes mellitus, active tobacco use, hypertension who presented to hospital due to chest pain/shortness of breath. Patient was found to have elevated troponin, patient was referred to [facility] for possible NSTEMI. Presented in septic shock. Intubated within 48 hours of arrival due to failure BiPAP, extubated 01/09. Tolerating nasal cannula oxygen. Weaning oxygen. Acute hypoxic respiratory failure due to pneumonia complicated by ARDS -Pulmonology consulted, Continue supplemental oxygen, goal saturation greater 90%. Wean as tolerated, currently on 3L. -completed antibiotics with Zosyn and azithromycin -Cultures pending negative to date. Strongyloides antibody negative -Last dose of prednisone this morning, will discontinue thereafter - DuoNeb scheduled every 6 hours and Pulmicort every 12 hours scheduled -White cell count normal at 10. repeat CBC, CMP, magnesium ordered for the morning. -Chest x-ray obtained this morning, effusions present. Airspace disease appears to be improving. -Gentle diuresis with Lasix 40 mg IV daily, goal negative daily. -1 L yesterday -Blood pressure soft overnight, resume midodrine 5 mg 3 times a day to maintain appropriate blood pressure for diuresis in the setting of cirrhosis NSTEMI Chronic heart failure with preserved ejection fraction, dilated RV - Consider Jardiance when kidney function improves - Cardiology consulted and assisting with care, recommend outpatient eval for ischemic disease Cirrhosis Thrombocytopenia Suspected hemochromatosis -Holding DAPT -Resume Lovenox, renally dosed 30 mg subcu x 1 today. Will consider dosing daily if platelets stable tomorrow and no further hemoptysis or signs of bleeding -Platelets 126 this morning. -Cirrhosis with portal hypertension noted on CTA, referred to at patient's request, has appointment scheduled the end of February -Iron studies obtained showing severely elevated iron levels and iron saturation along with elevated ferritin. Will obtain hemochromatosis gene screen. Given family history, diabetes, cirrhosis on imaging, iron studies, most consistent with hemochromatosis and development of bronze diabetes . - Liver function stable with bilirubin 1.6, AST 82, ALT 109, alk phos 60, albumin 3.0, INR 1.1 ANAHI - likely Hemodynamic ATN versus ANAHI from sepsis -Kidney function better with BUN 57, creatinine 2.1. Hyperglycemia due to uncontrolled diabetes mellitus - A1c 7.0 on admission. Continue sliding scale insulin with fingersticks -Increase Lantus to 20 units nightly, morning glucose 133 Tobacco use - nicotine patch Therapy working with patient daily, awaiting placement at rehab. Stable to discharge once accepted. Lovenox renally dosed Modified diet Full code pending placement
--- NOTE | 2024-01-15 15:57 | PC.NURSE ---
A&OX4. TOLERATING 3LNC WELL, WILL CONTINUE TO WEAN TOLERATED. PT UP INDEPENDENTLY IN ROOM. TOOK A SHOWER. FAMILY HAS BEEN TO VISIT. PT HAS HAD NO NEEDS OR C/O THUS FAR THIS SHIFT. BLOOD PRESSURE HAS BEEN RUNNING NORMAL. VSS.
[2024-01-15 16:36] LABS: POC Glucose,Bedside 146 (70-110)
[2024-01-15 20:17] LABS: POC Glucose,Bedside 262 (70-110)
[2024-01-15] MEDS: DOCUSATE SODIUM 100 MG CAPSULE PO (20:27)
[2024-01-15] MEDS: MELATONIN 5MG TABLET 10 MG PO (20:28)
[2024-01-16 04:00] VITALS: BP 127/91; PULSE 67; RESP 20; TEMP 36.7; O2SAT 92; BMI 36.2
[2024-01-16 05:19] LABS: POC Glucose,Bedside 107 (70-110)
--- NOTE | 2024-01-16 05:48 | PC.NURSE ---
Patient has rested well this shift with no acute changes noted. Patient remains on 3LNC. Lung sounds are diminished throughout. Patient has had no complaints of pain/discomfort this shift. Patient has a large blister to right forearm, and multiple ecchymosis areas throughout upper extremities. Patient has ambulated to bathroom with assist of one and walker. Patient remains of mechanical soft diet and nectar thick liquids, requesting to be re-evaluated for possible advanced diet. Plan of Care continues. Call krishna, bedside table, personal belongings and water pitcher all within reach.
[2024-01-16 07:49] LABS: Alanine Aminotransferase 134 U/L (12-78); Albumin Level 3.2 g/dl (3.5-5.0); Albumin/Globulin Ratio 0.9 (1.1-1.8); Alkaline Phosphatase 65 U/L (38-126); Anion Gap 4.4 mEq/L (5-15); Aspartate Amino Transferase 118 U/L (14-36); Bilirubin,Total 1.8 mg/dl (0.2-1.3); Blood Urea Nitrogen 42 mg/dl (7-17); Calcium 8.7 mg/dl (8.4-10.2); Carbon Dioxide 36 mmol/L (22.0-30.0); Chloride 103 mmol/L (98-107); Creatinine Clearance Estimated 55 mL/min (50-200); Estimated Glomerular Filt Rate 31 ml/min (>60); GFR (African American) 37 ML/MIN (>60); Globulin 3.7 g/dL (1.3-3.2); Glucose 126 mg/dl (74-100); Potassium 3.4 mmoL/L (3.5-5.1); Sodium 140 mmol/L (136-145); Total Protein,Serum 6.9 g/dl (6.3-8.2)
[2024-01-16 08:00] VITALS: BP 110/78; PULSE 66; RESP 18; TEMP 36.6; O2SAT 93
[2024-01-16] MEDS: FLUTICASONE/UMECLIDIN/VILANTER 100/62.5/25MCG INHALER 1 PUFF IH (08:54)
[2024-01-16 08:57] VITALS: O2SAT 95
[2024-01-16] MEDS: MIDODRINE HCL 5 MG TABLET PO ×3 (09:58→20:20)
[2024-01-16] MEDS: INSULIN GLARGINE 100 UNITS/ML 3ML FLEXPEN 20 UNIT SQ (09:58)
[2024-01-16] MEDS: humaLOG 100 UNITS/ML 3ML VIAL (SSI) SQ ×2 (10:57→16:24)
[2024-01-16 11:16] LABS: POC Glucose,Bedside 179 (70-110)
--- NOTE | 2024-01-16 11:57 | EXP.PN ---
Subjective *Date: 01/16/24 *Time: 11:57 Interval history: on 3l NC, patient was seen and evaluated at the bedside. Denies chest pain, shortness of breath, nausea, vomiting, abdominal pain alert and awake, she has no complains Exam Data for Last 24 hours Vital signs and Labs for Last 24 Hours: Temp Pulse Resp BP Pulse Ox O2 Del Method O2 Flow Rate 98 F 66 18 110/78 95 Nasal Cannula 2 01/16/24 08:00 01/16/24 08:00 01/16/24 08:00 01/16/24 08:00 01/16/24 08:57 01/16/24 11:00 01/16/24 11:00 FiO2 50 01/12/24 04:00 Laboratory Results - last 24 hr 01/15/24 16:20: POC Glucose 146 H 01/15/24 20:11: POC Glucose 262 H 01/16/24 05:11: POC Glucose 107 01/16/24 07:10: Sodium 140, Potassium 3.4 L, Chloride 103, Carbon Dioxide 36 H, Anion Gap 4.4 L, BUN 42 H, Creatinine 1.70 H, Estimated Creat Clear 55, Estimated GFR 31 L, Est GFR ( Amer) 37 L, Glucose 126 H, Calcium 8.7, Total Bilirubin 1.8 H, AST 118 H D, ALT 134 H, Alkaline Phosphatase 65, Total Protein 6.9, Albumin 3.2 L, Globulin 3.7 H, Albumin/Globulin Ratio 0.9 L 01/16/24 10:55: POC Glucose 179 H I & O for Last 24 hours: Intake & Output 01/13/24 01/14/24 01/15/24 01/16/24 23:59 23:59 23:59 23:59 Intake Total 730 / 730 720 / 720 1020 / 1140 480 / 480 Output Total 1050 / 1050 650 / 650 0 / 0 0 / 0 Balance -320 / -320 70 / 70 1020 / 1140 480 / 480 Weight 100.516 kg 100.6 kg 98.656 kg 98.656 kg Constitutional Constitutional: no acute distress *Routine HEENT Exam Head: Present normocephalic Eye: Present EOMI and PERRL ENT: Present mucous membranes moist *Routine Neck Exam Neck: Present supple; Absent lymphadenopathy *Routine Respiratory Exam Respiratory: Present CTA bilaterally Comments: mechanical breathing sounds *Routine Cardiovascular Exam Cardiovascular: Present RRR *Routine Abdominal Exam Abdominal: Present soft and normoactive bowel sounds; Absent tenderness *Routine Extremities Exam Extremities: Absent cyanosis, clubbing or edema *Routine Skin Exam Skin: Present warm; Absent rash *Routine Neurological Exam Neurological: Present alert and oriented X3 Assessment and Plan *Assessment and plan (1) Pneumonia: Status: Acute Category: Medical Code(s): J18.9 - Pneumonia, unspecified organism (2) Acute hypoxic respiratory failure: Status: Acute Category: Medical Code(s): J96.01 - Acute respiratory failure with hypoxia (3) Elevated troponin: Status: Acute Category: Medical Code(s): R79.89 - Other specified abnormal findings of blood chemistry (4) Diabetes: Status: Acute Category: Medical Code(s): E11.9 - Type 2 diabetes mellitus without complications (5) ARDS (adult respiratory distress syndrome): Status: Acute Category: Medical Code(s): J80 - Acute respiratory distress syndrome (6) Cirrhosis: Status: Acute Category: Medical Code(s): K74.60 - Unspecified cirrhosis of liver (7) ANAHI (acute kidney injury): Status: Acute Category: Medical Code(s): N17.9 - Acute kidney failure, unspecified (8) Pleural effusion: Status: Acute Category: Medical Code(s): J90 - Pleural effusion, not elsewhere classified (9) Hemochromatosis: Status: Acute Category: Medical Code(s): E83.119 - Hemochromatosis, unspecified Plan Patient is a 58-year-old female with past medical history of diabetes mellitus, active tobacco use, hypertension who presented to hospital due to chest pain/shortness of breath. Patient was found to have elevated troponin, patient was referred to [facility] for possible NSTEMI. Acute hypoxic respiratory failure due to pneumonia complicated by ARDS - Pulmonology consulted, Continue supplemental oxygen, goal saturation greater 90%. Wean as tolerated, currently on 3L. -completed antibiotics with Zosyn and azithromycin -Cultures pending negative to date. Strongyloides antibody negative -Last dose of prednisone this morning, will discontinue thereafter - DuoNeb scheduled every 6 hours and Pulmicort every 12 hours scheduled -White cell count normal at 10. repeat CBC, CMP, magnesium ordered for the morning. -Chest x-ray obtained this morning, effusions present. Airspace disease appears to be improving. -Gentle diuresis with Lasix 40 mg IV daily, goal negative daily. -1 L yesterday -Blood pressure soft overnight, resume midodrine 5 mg 3 times a day to maintain appropriate blood pressure for diuresis in the setting of cirrhosis NSTEMI Chronic heart failure with preserved ejection fraction, dilated RV - Consider Jardiance when kidney function improves - Cardiology consulted and assisting with care, recommend outpatient eval for ischemic disease Cirrhosis Thrombocytopenia Suspected hemochromatosis -Holding DAPT -Resume Lovenox, renally dosed 30 mg subcu x 1 today. Will consider dosing daily if platelets stable tomorrow and no further hemoptysis or signs of bleeding -Platelets 126 this morning. -Cirrhosis with portal hypertension noted on CTA, referred to [facility] at patient's request, has appointment scheduled the end of February -Iron studies obtained showing severely elevated iron levels and iron saturation along with elevated ferritin. Will obtain hemochromatosis gene screen. Given family history, diabetes, cirrhosis on imaging, iron studies, most consistent with hemochromatosis and development of bronze diabetes . - Liver function stable with bilirubin 1.6, AST 82, ALT 109, alk phos 60, albumin 3.0, INR 1.1 ANAHI - likely Hemodynamic ATN versus ANAHI from sepsis -Kidney function better with BUN 57, creatinine 2.1. Hyperglycemia due to uncontrolled diabetes mellitus - A1c 7.0 on admission. Continue sliding scale insulin with fingersticks -Increase Lantus to 20 units nightly, morning glucose 133 Tobacco use - nicotine patch Therapy working with patient daily, awaiting placement at rehab. Stable to discharge once accepted. Lovenox renally dosed Modified diet Full code ANAHI is improving, awaiting placement
[2024-01-16] MEDS: NICOTINE 7MG/24HRS PATCH 7 MG TD (13:08)
[2024-01-16 16:00] VITALS: BP 115/74; PULSE 62; RESP 20; TEMP 36.6; O2SAT 92
[2024-01-16 16:55] LABS: POC Glucose,Bedside 216 (70-110)
--- NOTE | 2024-01-16 17:49 | PC.NURSE ---
A&OX4. PT HAS DONE GREAT TODAY. BEGAN SHIFT ON 3LNC. RA TRIAL AT THIS TIME. WILL CONTINUE TO CHECK O2 SAT TO SEE IF TOLERATED. PT HAS BEEN UP WITH WALKER IN ROOM. TOLERATING WELL. HAS HAD A BM. VERY ACTIVE IN ROOM, FELT LIKE STRAIGHTENING UP HER SHEETS WELL. HAS HAD NO NEEDS OR C/O NOTED THUS FAR. VSS.
[2024-01-16] MEDS: ENOXAPARIN 30MG/0.3ML SYRINGE 30 MG SQ (18:16)
--- NOTE | 2024-01-16 19:30 | PC.NURSE ---
At shift change patient was on room air. RN went to check O2 sat and it was 80-82%. Placed 3L O2 per NC on patient, and O2 sat went to 90%. Patient shows no signs of distress on assessment. Will monitor and attempt to wean O2 throughout the night.
[2024-01-16 20:00] VITALS: BP 113/69; PULSE 68; RESP 20; TEMP 37.1; O2SAT 94
[2024-01-16] MEDS: DOCUSATE SODIUM 100 MG CAPSULE PO (20:20)
[2024-01-16] MEDS: MELATONIN 5MG TABLET 10 MG PO (20:20)
[2024-01-16 20:23] LABS: POC Glucose,Bedside 141 (70-110)
[2024-01-17 04:00] VITALS: BP 91/57; PULSE 60; RESP 16; TEMP 36.9; O2SAT 91; BMI 38.0
--- NOTE | 2024-01-17 05:11 | PC.NURSE ---
Patient has slept well this shift. No c/o of pain/SOA. Patient has remained on 3L O2 per NC, attempted to wean to 2L and patient dropped to 88-89%. Patient has been using walker to ambulate to bathroom independently. Patient is up to chair at this time and tolerating well.
[2024-01-17 05:25] LABS: POC Glucose,Bedside 131 (70-110)
[2024-01-17] MEDS: FLUTICASONE/UMECLIDIN/VILANTER 100/62.5/25MCG INHALER 1 PUFF IH (06:19)
[2024-01-17 06:21] VITALS: O2SAT 94
[2024-01-17 07:28] LABS: Basophils % 0.5 % (0.1-2.0); Eosinophils # 0.3 K/mm3 (0.0-0.4); Eosinophils % 3.5 % (0.1-12.0); Hematocrit 34.3 % (37.0-47.0); Hemoglobin 11.4 g/dL (12.2-16.2); Lymphocytes # 1.1 K/mm3 (0.7-4.5); Lymphocytes % 12.2 % (10-50); Mean Corpuscular HGB Conc 33.3 g/dL (31.8-35.4); Mean Corpuscular Volume 108.3 fl (81-99); Mean Platelet Volume 8.4 fl (7.4-10.4); Monocytes # 0.5 K/mm3 (0.1-1.0); Monocytes % 5.2 % (1.7-9.3); Neutrophils # 6.9 K/mm3 (1.8-7.8); Neutrophils % 78.6 % (37.0-80.0); Platelet Count 109 K/mm3 (142-424); Red Blood Count 3.17 M/mm3 (4.20-5.40); Red Cell Distribution Width 17.2 % (11.5-17.5); White Blood Count 8.7 K/mm3 (4.8-10.8)
[2024-01-17 07:35] LABS: Alanine Aminotransferase 110 U/L (12-78); Albumin Level 2.8 g/dl (3.5-5.0); Albumin/Globulin Ratio 0.8 (1.1-1.8); Alkaline Phosphatase 61 U/L (38-126); Anion Gap 3.6 mEq/L (5-15); Aspartate Amino Transferase 86 U/L (14-36); Bilirubin,Total 1.5 mg/dl (0.2-1.3); Blood Urea Nitrogen 32 mg/dl (7-17); Calcium 8.4 mg/dl (8.4-10.2); Carbon Dioxide 34 mmol/L (22.0-30.0); Chloride 105 mmol/L (98-107); Creatinine Clearance Estimated 61 mL/min (50-200); Estimated Glomerular Filt Rate 33 ml/min (>60); GFR (African American) 40 ML/MIN (>60); Globulin 3.4 g/dL (1.3-3.2); Glucose 134 mg/dl (74-100); Magnesium 1.9 mg/dl (1.6-2.3); Potassium 3.6 mmoL/L (3.5-5.1); Sodium 139 mmol/L (136-145); Total Protein,Serum 6.2 g/dl (6.3-8.2)
[2024-01-17 08:00] VITALS: BP 118/70; PULSE 65; RESP 18; TEMP 36.6; O2SAT 96
[2024-01-17] MEDS: MIDODRINE HCL 5 MG TABLET PO ×3 (09:25→21:23)
[2024-01-17] MEDS: INSULIN GLARGINE 100 UNITS/ML 3ML FLEXPEN 20 UNIT SQ (09:25)
--- NOTE | 2024-01-17 10:07 | EXP.PULM.PN ---
Subjective *Date: 01/17/24 *Time: 10:48 Interval history: No acute respiratory events over the weekend Pulmonology Exam Inpatient Vital signs and Labs for Last 24 Hours: Temp Pulse Resp BP Pulse Ox O2 Del Method O2 Flow Rate 97.8 F 65 18 118/70 96 Nasal Cannula 3 01/17/24 08:00 01/17/24 08:00 01/17/24 08:00 01/17/24 08:00 01/17/24 08:00 01/17/24 08:00 01/17/24 08:00 FiO2 50 01/12/24 04:00 Laboratory Results - last 24 hr 01/16/24 10:55: POC Glucose 179 H 01/16/24 16:19: POC Glucose 216 H 01/16/24 20:16: POC Glucose 141 H 01/17/24 05:07: POC Glucose 131 H 01/17/24 06:35: WBC 8.7 D, RBC 3.17 L, Hgb 11.4 L, Hct 34.3 L, MCV 108.3 H, MCH 36.0 H, MCHC 33.3, RDW 17.2, Plt Count 109 L, MPV 8.4, Neut % (Auto) 78.6, Lymph % (Auto) 12.2, [place] % (Auto) 5.2, Eos % (Auto) 3.5, Baso % (Auto) 0.5, Neut # (Auto) 6.9, Lymph # (Auto) 1.1, [place] # (Auto) 0.5, Eos # (Auto) 0.3, Baso # (Auto) 0.0, Sodium 139, Potassium 3.6, Chloride 105, Carbon Dioxide 34 H, Anion Gap 3.6 L, BUN 32 H, Creatinine 1.60 H, Estimated Creat Clear 61, Estimated GFR 33 L, Est GFR ( Amer) 40 L, Glucose 134 H, Calcium 8.4, Magnesium 1.9, Total Bilirubin 1.5 H, AST 86 H D, ALT 110 H, Alkaline Phosphatase 61, Total Protein 6.2 L, Albumin 2.8 L D, Globulin 3.4 H, Albumin/Globulin Ratio 0.8 L I & O for Labs for Last 24 Hours: Intake & Output 01/14/24 01/15/24 01/16/24 01/17/24 23:59 23:59 23:59 23:59 Intake Total 720 / 720 1020 / 1140 1260 / 1260 240 / 240 Output Total 650 / 650 0 / 0 0 / 0 0 / 0 Balance 70 / 70 1020 / 1140 1260 / 1260 240 / 240 Weight 221 lb 12.56 oz 217 lb 8 oz 217 lb 7.988 oz 227 lb 14.4 oz Microbiology Reports for the Last 24 Hours: Microbiology 01/05/24 13:41 Sputum - Expectorated Sputum Gram Stain - Final 01/05/24 13:41 Sputum - Expectorated Sputum Sputum Culture - Preliminary 01/06/24 05:00 Sputum - Endotracheal Tube Aspirate Gram Stain - Final 01/06/24 05:00 Sputum - Endotracheal Tube Aspirate Sputum Culture - Preliminary 01/06/24 11:15 Bronchial Washings - Left Lower Lobe Gram Stain - Final 01/06/24 11:15 Bronchial Washings - Left Lower Lobe Bronchoalveolar Lavage Culture - Final Constitutional: Present mild distress Head: Present normocephalic and atraumatic ENT: Present normal exam, normal oropharynx and mucous membranes moist Neck: Present normal inspection and full ROM Respiratory: Present able to speak in complete sentences; Absent rhonchi or wheezes Cardiac: Present S1/S2, Tachycardia and radial pulses present GI: Present soft and distention; Absent tenderness or guarding Rectal (female): Present deferred (female): Present deferred Skin: Present intact; Absent cyanosis or jaundice Neuro: Present alert, awake and oriented x 3 Extremities: Present normal inspection; Absent clubbing or cyanosis Psychiatric: Present normal affect and cooperative Assessment and Plan *Assessment and plan (1) Acute hypoxic respiratory failure: Status: Acute Category: Medical Code(s): J96.01 - Acute respiratory failure with hypoxia (2) Pneumonia: Status: Acute Category: Medical Code(s): J18.9 - Pneumonia, unspecified organism Plan Ms. Richmond is a 58-year-old female greater than [id number] smoking history and carries a diagnosis of COPD baseline using albuterol/nebulizers presented to the ER for worsening chest pain and shortness of breath and pulmonary was called for further evaluation and management. Chest x-ray upon admission bilateral lower lobe airspace disease, left greater than right. Interstitial thickening is also noted, likely a combination of airspace disease and volume overload. Neutrophilic leukocytosis upon admission. Serum ammonia also elevated upon admission. Patient admission was initiated on BiPAP therapy. No blood gas available. On initial examination patient is awake responding to verbal commands. Weaned from BiPAP to high flow nasal cannula. Wheezing on auscutation. CTA personally reviewed, no evidence of pulmonary embolism bilateral lower lobe dense consolidative changes left greater than right. Small effusions also noted. Significant emphysematous changes also noted. Calcified lymphadenopathy noted. Patient experienced significant respiratory distress overnight on 01/05/2024 needing intubation and mechanical ventilatory support. SPENCER screen negative. BAL eosinophil count 0. Nasal MRSA PCR negative. Improvement in status s/p extubation on 01/10/2024. Tolerating nasal cannula well since then. Completed 7-day course of Zosyn and 5-day course of azithromycin. Urine strep and Legionella resulted negative. Interval update: No acute respiratory events over the weekend. Stable oxygen requirements Plan: Continue nasal oxygen supplementation to maintain O2 saturation goal of 90% and above. Trelegy 100 inhaler along with DuoNebs every 6 hours on as-needed basis Aspiration precautions PT OT # Thank you for involving pulmonary in this patient care. Will continue to follow.
[2024-01-17] MEDS: humaLOG 100 UNITS/ML 3ML VIAL (SSI) SQ ×2 (11:49→16:53)
[2024-01-17 11:52] LABS: POC Glucose,Bedside 182 (70-110)
[2024-01-17] MEDS: NICOTINE 7MG/24HRS PATCH 7 MG TD (13:42)
[2024-01-17 15:10] LABS: Legionella pneumophila Urinary Negative (Negative)
[2024-01-17 15:54] VITALS: BP 97/49; PULSE 63; RESP 18; TEMP 37.2; O2SAT 90
[2024-01-17 16:42] LABS: POC Glucose,Bedside 181 (70-110)
[2024-01-17 17:09] LABS: Body Fluid Culture, Sterile Not indicated. (.); Organism ID Not indicated. (.); Specimen Source Urine (.); Streptococcus pneumoniae Ag Negative (Negative)
--- NOTE | 2024-01-17 18:20 | P.PN_ITS ---
Subjective *Date: 01/17/24 *Time: 18:20 Interval history: Patient feeling better this morning. Weaning oxygen, on 2 L nasal cannula oxygen. Afebrile. Tolerating p.o. intake. Diuresing well. No nausea or vomiting. Ambulating with walker. Working with therapy daily Medical Exam Vital signs and Labs for Last 24 Hours: Vital Signs Temp Pulse Resp BP Pulse Ox O2 Del Method O2 Flow Rate 01/17/24 15:54 98.9 F 63 18 97/49 L 90 L Nasal Cannula 01/17/24 08:00 97.8 F 65 18 118/70 96 Nasal Cannula 3 01/17/24 06:57 Nasal Cannula 3 01/17/24 06:21 94 L Nasal Cannula 4 01/17/24 05:00 Nasal Cannula 3 01/17/24 04:00 98.5 F 60 16 91/57 L 91 L Nasal Cannula 3 01/17/24 03:00 Nasal Cannula 3 01/17/24 01:00 Nasal Cannula 3 01/16/24 23:00 Nasal Cannula 3 01/16/24 21:00 Nasal Cannula 3 01/16/24 20:00 98.8 F 68 20 113/69 94 L Nasal Cannula 3 01/16/24 20:00 Nasal Cannula 3 01/16/24 18:49 Room Air Intake and Output 01/17/24 01/17/24 01/17/24 07:59 15:59 23:59 Intake Total 710 / 1180 470 / 1180 Output Total 0 / 0 0 / 0 Balance 0 / 1180 710 / 1180 470 / 1180 Intake: Intake, Oral Amount 710 / 1180 470 / 1180 Output: Output, Urine Amount 0 / 0 0 / 0 Other: Number of Unmeasured Voids 1 1 Weight 103.374 kg Patient Weight 01/17/24 23:59 Weight 103.374 kg Laboratory Results - last 24 hr 01/06/24 08:22: Ur L.pneumophila Ag Negative 01/06/24 13:06: Fluid Culture Not indicated., S. pneumoniae Antigen Negative, S. pneumoniae Ag Source Urine, Organism ID Not indicated. 01/16/24 20:16: POC Glucose 141 H 01/17/24 05:07: POC Glucose 131 H 01/17/24 06:35: WBC 8.7 D, RBC 3.17 L, Hgb 11.4 L, Hct 34.3 L, MCV 108.3 H, MCH 36.0 H, MCHC 33.3, RDW 17.2, Plt Count 109 L, MPV 8.4, Neut % (Auto) 78.6, Lymph % (Auto) 12.2, [place] % (Auto) 5.2, Eos % (Auto) 3.5, Baso % (Auto) 0.5, Neut # (Auto) 6.9, Lymph # (Auto) 1.1, [place] # (Auto) 0.5, Eos # (Auto) 0.3, Baso # (Auto) 0.0, Sodium 139, Potassium 3.6, Chloride 105, Carbon Dioxide 34 H, Anion Gap 3.6 L, BUN 32 H, Creatinine 1.60 H, Estimated Creat Clear 61, Estimated GFR 33 L, Est GFR ( Amer) 40 L, Glucose 134 H, Calcium 8.4, Magnesium 1.9, Total Bilirubin 1.5 H, AST 86 H D, ALT 110 H, Alkaline Phosphatase 61, Total Protein 6.2 L, Albumin 2.8 L D, Globulin 3.4 H, Albumin/Globulin Ratio 0.8 L 01/17/24 11:45: POC Glucose 182 H 01/17/24 16:33: POC Glucose 181 H I & O for Labs for Last 24 Hours: Intake & Output 01/14/24 01/15/24 01/16/24 01/17/24 23:59 23:59 23:59 23:59 Intake Total 720 / 720 1020 / 1140 1260 / 1260 1180 / 1180 Output Total 650 / 650 0 / 0 0 / 0 0 / 0 Balance 70 / 70 1020 / 1140 1260 / 1260 1180 / 1180 Weight 100.6 kg 98.656 kg 98.656 kg 103.374 kg Constitutional: Present no acute distress, obese, chronically ill appearing and cooperative Head: Present atraumatic and normocephalic ENT: Present normal exam Respiratory: Absent rhonchi, wheezes or crackles Cardiac: Present Reg Rate and Rhythm GI: Present soft and normal bowel sounds; Absent distention or tenderness Extremities: Present normal inspection, full ROM and edema (Trace in ankles. No edema in arms) Skin: Present intact; Absent erythema Comment:: senile purpura, spider angiomas on chest, flaccid blister right forearm. No sign of infection Neuro: Present Grossly Intact, alert, awake, oriented x 3 and moves all extrem ities Assessment and Plan *Assessment and plan (1) Pneumonia: Status: Acute Category: Medical Code(s): J18.9 - Pneumonia, unspecified organism (2) Acute hypoxic respiratory failure: Status: Acute Category: Medical Code(s): J96.01 - Acute respiratory failure with hypoxia (3) Elevated troponin: Status: Acute Category: Medical Code(s): R79.89 - Other specified abnormal findings of blood chemistry (4) Diabetes: Status: Acute Category: Medical Code(s): E11.9 - Type 2 diabetes mellitus without complications (5) ARDS (adult respiratory distress syndrome): Status: Acute Category: Medical Code(s): J80 - Acute respiratory distress syndrome (6) Cirrhosis: Status: Acute Category: Medical Code(s): K74.60 - Unspecified cirrhosis of liver (7) ANAHI (acute kidney injury): Status: Acute Category: Medical Code(s): N17.9 - Acute kidney failure, unspecified (8) Pleural effusion: Status: Acute Category: Medical Code(s): J90 - Pleural effusion, not elsewhere classified (9) Hemochromatosis: Status: Acute Category: Medical Code(s): E83.119 - Hemochromatosis, unspecified Plan Patient is a 58-year-old female with past medical history of diabetes mellitus, active tobacco use, hypertension who presented to hospital due to chest pain/shortness of breath. Patient was found to have elevated troponin, patient was referred to [facility] for possible NSTEMI. Presented in septic shock. Intubated within 48 hours of arrival due to failure BiPAP, extubated 01/09. Tolerating nasal cannula oxygen. Weaning oxygen. On 2L today. Working with therapy, walking with a walker. Standing on exam today. Tolerating soft mechanical diet. Anticipate discharge in the next day or 2. Awaiting rehab evaluation for placement versus home with home health. Problems addressed as follows: Acute hypoxic respiratory failure due to pneumonia complicated by ARDS -Pulmonology consulted, appreciate their recommendations. Discussed case this morning. Continue supplemental oxygen, goal saturation greater 90%. Wean as tolerated, currently on 2L. -Patient has completed antibiotics with Zosyn and azithromycin and steroid course -Cultures pending negative to date. Strongyloides antibody negative - DuoNeb scheduled every 6 hours and Pulmicort every 12 hours scheduled -White cell count normal at 8.7. repeat CBC, CMP, magnesium ordered for the morning. -Gentle diuresis with Lasix 40 mg IV daily, goal negative daily. - Blood pressure soft, midodrine 5 mg 3 times a day to maintain appropriate blood pressure for diuresis in the setting of cirrhosis NSTEMI Chronic heart failure with preserved ejection fraction, dilated RV - Consider Jardiance when kidney function improves - Cardiology consulted and assisting with care, recommend outpatient eval for ischemic disease Cirrhosis Thrombocytopenia Suspected hemochromatosis -Holding DAPT -Resume Lovenox, renally dosed 30 mg subcu daily; platelets 109 this morning -Cirrhosis with portal hypertension noted on CTA, referred to [facility] at patient's request, has appointment scheduled the end of February -Iron studies obtained showing severely elevated iron levels and iron saturation along with elevated ferritin. Will obtain hemochromatosis gene screen. Given family history, diabetes, cirrhosis on imaging, iron studies, most consistent with hemochromatosis and development of bronze diabetes . - Liver function stable with bilirubin 1.5, AST 86, ALT 110, alk phos 61. Albumin 2.8. ANAHI -likely Hemodynamic ATN versus ANAHI from sepsis -Kidney function continues to show improvement, BUN 32, creatinine 1.6. Hyperglycemia due to uncontrolled diabetes mellitus - A1c 7.0 on admission. Continue sliding scale insulin with fingersticks every 6 hrs, received less than 20 units of sliding scale yesterday -Increase Lantus to 22 units daily in the morning. Morning glucose today 134 Tobacco use - nicotine patch Therapy working with patient daily Lovenox renally dosed Modified diet Full code
--- NOTE | 2024-01-17 18:22 | PC.NURSE ---
Patient a&ox4 and vss. Patient taught how and where to give sub q injections for her discharge. Pastient states she will do lantus injection this evening.
[2024-01-17 19:59] LABS: POC Glucose,Bedside 146 (70-110)
[2024-01-17 20:00] VITALS: BP 119/78; PULSE 69; RESP 17; TEMP 36.3; O2SAT 89
[2024-01-17] MEDS: MELATONIN 5MG TABLET 10 MG PO (21:23)
[2024-01-17] MEDS: ENOXAPARIN 30MG/0.3ML SYRINGE 30 MG SQ (21:27)
--- NOTE | 2024-01-17 23:20 | PC.NURSE ---
ROOM AIR SAT PT DROPPED TO 85% ON ROOM AIR. PT PLACED BACK ON 3.5L NC WITH A SAT OF 91%
[2024-01-17 23:25] VITALS: O2SAT 91
[2024-01-18] VITALS: BP 98/57; PULSE 59; RESP 17; TEMP 36.9; O2SAT 96
[2024-01-18 04:00] VITALS: BP 92/51; PULSE 62; RESP 17; TEMP 37; O2SAT 90; BMI 37.8
[2024-01-18] MEDS: FLUTICASONE/UMECLIDIN/VILANTER 100/62.5/25MCG INHALER 1 PUFF IH (06:15)
[2024-01-18 06:16] VITALS: O2SAT 91
[2024-01-18 06:24] LABS: POC Glucose,Bedside 115 (70-110)
--- NOTE | 2024-01-18 07:20 | P.DS_ITS ---
General Admission date:: 01/04/24 Discharge date: 01/18/24 HPI HPI HPI: Patient is a 58-year-old female with past medical history of diabetes mellitus, active tobacco use, hypertension who presented to hospital due to chest pain/shortness of breath. Patient was found to have elevated troponin, patient was referred to H&H for possible NSTEMI. Patient at time of my evaluation denies active chest pain, she appears to be in shortness of breath. She was started on IV heparin, BiPAP and was sent to the [facility] for further evaluation. Patient's family/son is also at the bedside. Patient de nies fever chills nausea vomiting diarrhea constipation. She denies being on diabetic medications. Hospital Course Hospital Course Hospital Course: Patient is a 58-year-old female with past medical history of diabetes mellitus, active tobacco use, hypertension who presented to hospital due to chest pain/shortness of breath. Patient was found to have elevated troponin, patient was referred to H&H for possible NSTEMI. Presented in septic shock. Intubated on arrival. Extubated 01/09. Tolerating nasal cannula oxygen. Weaned to 2 L. Alert and oriented x 3. Getting up to bedside chair. Working with therapy and speech. Tolerating pur?ed diet. Hemoptysis more or less resolved. Showed sig nificant improvement during admission. Additional history obtained during admission from family gives high suspicion for hemochromatosis as an underlying cause of her cirrhosis. Has had other family members develop cirrhosis and hemochromatosis. Patient working with therapy and stable to discharge to rehab for further management. Has completed antibiotics. Kidney function showing improvement. Continue to wean oxygen as tolerated. Stable to discharge home with home health. Will have follow-up with for concern for her hemochromatosis. Problems addressed as follows: Septic shock, resolved Acute hypoxic respiratory failure due to pneumonia complicated by ARDS -Patient presented in respiratory failure and necessitated BiPAP, continued to decline with significant distress overnight on 01/04 necessitating escalation of care to mechanical ventilation. Was intubated for approximately a week due to respiratory failure from pneumonia. Showed gradual improvement was able to be extubated on 01/09. While intubated, was in septic shock necessitating pressors. Weaned off pressors by the time of extubation. Has had softer blood pressures but no adin hypotension. In the setting for cirrhosis, was initiated on midodrine. Has a component of volume overload necessitating diuresis. Have been diuresing daily with good response. Patient completed 7 days of Zosyn and 5 days of azithromycin. Was on steroid course for 10 days and has completed steroids at this time. Continuing DuoNeb scheduled every 6 hours and Pulmicort every 12 hours. White cell count normalized and has been within a normal range for over 72 hours prior to discharge. Serial x-rays show effusion and resolving pneumonia. Pulmonology assisted with care during admission along with cardiology. Recommend follow-up with pulmonology in the next 1 to 2 weeks as an outpatient. -Of note, Strongyloides antibody was negative. Sputum culture negative. - SPENCER screen negative. BAL eosinophil count 0. Nasal MRSA PCR negative. - Trelegy 100 inhaler daily NSTEMI Chronic heart failure with preserved ejection fraction, dilated RV - Consider Jardiance when kidney function improves in the outpatient setting. Cardiology consulted. Assisted with care. Would benefit from outpatient eval for ischemic disease. Referral placed. Cirrhosis Thrombocytopenia Suspected hemochromatosis -Holding dual antiplatelet therapy in the setting of NSTEMI because of her cirrhosis and thrombocytopenia. Platelets showed gradual improvement over course of admission. Above 100 on day of discharge. Was treated intermittently with Lovenox when her platelets were above 100. No active signs of bleeding. During admission, Cirrhosis with portal hypertension noted on CTA, iron studies obtained showing severely elevated iron levels and iron saturation along with elevated ferritin. Given family history, diabetes, cirrhosis on imaging, iron studies, most consistent with hemochromatosis and development of bronze diabet es . Patient has been referred to for GI. Appointment is the end of February. Has continued to have mild elevation in liver enzymes consistent with hepatobiliary dysfunction. INR normal. Recommend repeat labs in 1 week to monitor CBC, CMP. Hemochromatosis DNR [employer]IC obtained and pending at discharge. ANAHI, improved - likely Hemodynamic ATN versus ANAHI from sepsis. Creatinine peaked at 3. Has been improving for 72 hours prior to discharge. 1.5 on day of discharge. Making good urine. BUN continuing to improve. Hyperglycemia due to uncontrolled diabetes mellitus - A1c 7.0 on admission. Treated with sliding scale insulin with fingersticks every 6 hrs. Lantus titrated to 22 units nightly. Discharged on Lantus only. Recommend further management as an outpatient. Tobacco use - nicotine patch Therapy worked with patient daily. Showed gradual improvement and able to walk 30 to 50 feet with a walker. Stable enough to discharge home with home health. Family will stay with her after discharge. Total time spent on discharge 40 minutes in counseling, documentation, chart review, and direct care with patient. Exam Data for Last 24 hours Vital signs and Labs for Last 24 Hours: Temp Pulse Resp BP Pulse Ox O2 Del Method O2 Flow Rate 98.4 F 68 19 114/70 91 L Nasal Cannula 4 01/14/24 08:00 01/14/24 12:00 01/14/24 12:00 01/14/24 12:00 01/14/24 12:00 01/14/24 14:12 01/14/24 14:12 FiO2 50 01/12/24 04:00 Laboratory Results - last 24 hr 01/10/24 08:22: Ur Random Urea Nitrogn 432, Urine Creatinine 43, Urine Sodium 104.0 H 01/13/24 15:58: POC Glucose 335 H* 01/13/24 19:59: POC Glucose 171 H 01/14/24 06:23: WBC 10.4, RBC 3.39 L, Hgb 11.9 L, Hct 37.6, MCV 111.2 H, MCH 35.3 H, MCHC 31.7 L, RDW 16.4, Plt Count 126 L D, MPV 8.5, Neut % (Auto) 78.7, Lymph % (Auto) 15.1, [place] % (Auto) 3.3, Eos % (Auto) 2.5, Baso % (Auto) 0.4, Neut # (Auto) 8.2 H, Lymph # (Auto) 1.6, [place] # (Auto) 0.3, Eos # (Auto) 0.3, Baso # (Auto) 0.0, PT 11.9, INR 1.11 H, Sodium 142, Potassium 3.6, Chloride 104, Carbon Dioxide 35 H, Anion Gap 6.6, BUN 57 H, Creatinine 2.10 H, Estimated Creat Clear 45, Estimated GFR 24 L, Est GFR ( Amer) 29 L, Glucose 133 H, POC Glucose 139 H, Calcium 8.7, Magnesium 2.1, Total Bilirubin 1.6 H, AST 82 H, ALT 109 H, Alkaline Phosphatase 60, Total Protein 6.7, Albumin 3.0 L, Globulin 3.7 H , Albumin/Globulin Ratio 0.8 L 01/14/24 10:32: POC Glucose 252 H I & O for Last 24 hours: Intake & Output 01/11/24 01/12/24 01/13/24 01/14/24 23:59 23:59 23:59 23:59 Intake Total 340 / 340 605 / 605 730 / 730 360 / 360 Output Total 1925 / 2200 2160 / 2160 1050 / 1050 650 / 650 Balance -1585 / -1860 -1555 / -1555 -320 / -320 -290 / -290 Weight 102.143 kg 100.698 kg 100.516 kg 100.6 kg Constitutional Constitutional: no acute distress, obese, chronically ill appearing and cooperative *Routine HEENT Exam Head: Present normocephalic Eye: Present EOMI and PERRL ENT: Present mucous membranes moist Comments: hirsutism *Routine Neck Exam Neck: Present supple; Absent lymphadenopathy *Routine Respiratory Exam Respiratory: Present CTA bilaterally and distant breath sounds; Absent rhonchi, wheezes or crackles *Routine Cardiovascular Exam Cardiovascular: Present RRR *Routine Abdominal Exam Abdominal: Present soft and normoactive bowel sounds; Absent tenderness Comments: prominent abdomen *Routine Rectal Exam Patient deferred: visual exam *Routine Exam Patient deferred: external exam *Routine Extremities Exam Extremities: Absent cyanosis, clubbing or edema Comments: Blister on right forearm that is flaccid with serosanguineous fluid. No concern for infection *Routine Skin Exam Skin: Present warm; Absent rash Comments: blisters on right forearm, flaccid, serous fluid in blister. *Routine Neurological Exam Neurological: Present alert, oriented X3 and moving all extremities; Absent altered mental status or tremors Results Data Completed and Pending Labs on day of discharge: Labs from last 24 hours 01/14/24 01/14/24 01/13/24 10:32 06:23 19:59 WBC 10.4 RBC 3.39 L Hgb 11.9 L Hct 37.6 MCV 111.2 H MCH 35.3 H MCHC 31.7 L RDW 16.4 Plt Count 126 L D MPV 8.5 Neut % (Auto) 78.7 Lymph % (Auto) 15.1 [place] % (Auto) 3.3 Eos % (Auto) 2.5 Baso % (Auto) 0.4 Neut # (Auto) 8.2 H Lymph # (Auto) 1.6 [place] # (Auto) 0.3 Eos # (Auto) 0.3 Baso # (Auto) 0.0 PT 11.9 INR 1.11 H Sodium 142 Potassium 3.6 Chloride 104 Carbon Dioxide 35 H Anion Gap 6.6 BUN 57 H Creatinine 2.10 H Estimated Creat Clear 45 Estimated GFR 24 L Est GFR ( Amer) 29 L Glucose 133 H POC Glucose 252 H 139 H 171 H Calcium 8.7 Magnesium 2.1 Total Bilirubin 1.6 H AST 82 H ALT 109 H Alkaline Phosphatase 60 Total Protein 6.7 Albumin 3.0 L Globulin 3.7 H Albumin/Globulin Ratio 0.8 L Ur Random Urea Nitrogn Urine Creatinine Urine Sodium 01/13/24 01/10/24 15:58 08:22 WBC RBC Hgb Hct MCV MCH MCHC RDW Plt Count MPV Neut % (Auto) Lymph % (Auto) [place] % (Auto) Eos % (Auto) Baso % (Auto) Neut # (Auto) Lymph # (Auto) [place] # (Auto) Eos # (Auto) Baso # (Auto) PT INR Sodium Potassium Chloride Carbon Dioxide Anion Gap BUN Creatinine Estimated Creat Clear Estimated GFR Est GFR ( Amer) Glucose POC Glucose 335 H* Calcium Magnesium Total Bilirubin AST ALT Alkaline Phosphatase Total Protein Albumin Globulin Albumin/Globulin Ratio Ur Random Urea Nitrogn 432 Urine Creatinine 43 Urine Sodium 104.0 H DS: Diagnosis Discharge Diagnosis (1) Acute hypoxic respiratory failure: Status: Acute Code(s): J96.01 - Acute respiratory failure with hypoxia (2) Pneumonia: Status: Acute Code(s): J18.9 - Pneumonia, unspecified organism (3) On mechanically assisted ventilation: Status: Acute Code(s): Z99.11 - Dependence on respirator [ventilator] status (4) ARDS (adult respiratory distress syndrome): Status: Acute Code(s): J80 - Acute respiratory distress syndrome Meds Home Medications and Allergies Home Medications Medication Instructions Recorded Confirmed Type docusate sodium 100 mg capsule 100 mg PO HS 30 days #30 caps 01/17/24 Rx insulin glargine 100 unit/mL (3 22 unit (0.22 mL) SQ DAILY 30 days 01/17/24 Rx mL) subcutaneous pen (Lantus #6.6 mL Solostar U-100 Insulin) fluticasone fur. 100 mcg-umeclid 1 inh inhalation DAILY #60 ea 01/18/24 Rx 62.5 mcg-vilant 25 mcg inhalat.powder (Trelegy Ellipta) furosemide 40 mg tablet (Lasix) 40 mg PO DAILY #30 tabs 01/18/24 Rx ipratropium 0.5 mg-albuterol 3 mg 3 ml inhalation QID PRN wheezing 01/18/24 Rx (2.5 mg base)/3 mL nebulization #180 mL soln midodrine 5 mg tablet 5 mg PO TID 30 days #90 tabs 01/18/24 Rx nicotine 7 mg/24 hr daily 1 patch transdermal Q24H #28 ea 01/18/24 Rx transdermal patch pen needle, diabetic 32 gauge x #100 ea 01/18/24 Rx (BD Kassandra 2nd Gen Pen Needle) New Prescriptions to Start Prescriptions: juan ausadorene sodium Lizzeth,Yrn [id number] [Trelegy Ellipta] Lizzeth,Yrn furosemide [Lasix] Lizzeth,Yrn insulin glargine [Lantus Solostar U-100 Insulin] Yrn Moreau ipratropium-albuterol Lizzeth,Yrn midodrine Lizzeth,Yrn nicotine Lizzeth,Yrn pen needle, diabetic [BD Kassandra 2nd Gen Pen Needle] Yrn Moreau Allergies Allergy/AdvReac Type Severity Reaction Status Date / Time No Known Allergies Allergy Verified 01/04/24 08:09 Discharge Plan Disposition Patient Disposition: Home Health Service Condition: Fair Discharge Order Discharge Orders: Discharge Order (Routine); Ordered 01/18/24 Ordered By: Yrn Moreau Follow up Plan Follow up with: Tanna Medina [Primary Care Provider] - 01/19/24 9:00 am Chava Quinn MD [Physician] - 01/26/24 1:15 pm Alisa Thompson APRN [Referring] - 03/24/24 12:00 pm Von Ferrell MD ([facility] ) [Staff Physician] - 01/26/24 2:30 pm Prescriptions/Medication Reconciliation: New docusate sodium 100 mg Capsule 100 mg PO HS 30 Days Qty: 30 0RF insulin glargine [Lantus Solostar U-100 Insulin] 100 unit/mL (3 mL) Insulin Pen 22 unit SQ DAILY 30 Days Qty: 6.6 0RF (DME) pen needle, diabetic [BD Kassandra 2nd Gen Pen Needle] 32 gauge x 5/32 needle See Rx Instructions .Route Qty: 100 0RF Rx Instructions: As directed midodrine 5 mg tablet 5 mg PO TID 30 Days Qty: 90 0RF Rx Instructions: do not give last dose of day after 6PM or within 4 hrs of bedtime nicotine 7 mg/24 hr patch 24 hour 1 patch transdermal Q24H Qty: 28 1RF ipratropium-albuterol 0.5 mg-3 mg(2.5 mg base)/3 mL solution for nebulization 3 ml inhalation QID PRN (Reason: wheezing) Qty: 180 0RF Trelegy Ellipta 100-62.5-25 mcg blister with device 1 inh inhalation DAILY Qty: 60 0RF furosemide [Lasix] 40 mg tablet 40 mg PO DAILY Qty: 30 0RF Discontinued promethazine-DM 6.25-15 mg/5 mL syrup 5 ml PO Q6 PRN (Reason: Cough) Patient Comments: TAKE 5 ML BY MOUTH EVERY 6 HOURS NEEDED FOR COUGH. MAY CAUSE SEDATION Rx Instructions: Filled and picked up 3/24 per Tahira at [facility] amoxicillin 250 mg/5 mL suspension for reconstitution 500 mg PO TID Rx Instructions: Filled and picked up 3/24 per Tahira at [facility]; 10-day course, 10mL TID lisinopril 40 mg tablet 40 mg PO DAILY Patient Comments: TAKE 1 TABLET BY MOUTH ONCE DAILY buprenorphine-naloxone 8-2 mg tablet, sublingual 2 tab SUBLINGUAL DAILY Patient Comments: PLACE 2 TABLETS UNDER THE TONGUE ONCE DAILY Other Ambulatory Orders: Home Medical Equipment (Routine) Location: None Selected Ordered By: Yrn Moreau Home Medical Equipment (Routine) Location: None Selected Ordered By: Yrn Moreau Problem Reconciliation Problems Reviewed?: Yes Patient Discharge Instructions ACTIVITY: Continue current activity DIET: continue same diet Patient Instructions: How to Take Care of Your Feet If You Have Diabetes, Type 2 Diabetes, Septic Shock, Enteral Feeding, DI for Pneumonia -- Adult, DI for Diabetes Type 2, Ventilator-Associated Pneumonia, DI for Respiratory Failure, Catheter-Associated Urinary Tract Infection Providers Primary Care Provider: Tanna Medina Admit Provider: Yrn Moreau Attending Provider: Yrn Moreau
[2024-01-18 07:55] LABS: Alanine Aminotransferase 98 U/L (12-78); Albumin Level 3.1 g/dl (3.5-5.0); Albumin/Globulin Ratio 0.9 (1.1-1.8); Alkaline Phosphatase 64 U/L (38-126); Anion Gap 2.6 mEq/L (5-15); Aspartate Amino Transferase 74 U/L (14-36); Basophils # 0.1 K/mm3 (0-0.2); Basophils % 0.6 % (0.1-2.0); Bilirubin,Total 1.7 mg/dl (0.2-1.3); Blood Urea Nitrogen 28 mg/dl (7-17); Calcium 8.5 mg/dl (8.4-10.2); Carbon Dioxide 35 mmol/L (22.0-30.0); Chloride 105 mmol/L (98-107); Creatinine Clearance Estimated 65 mL/min (50-200); Eosinophils # 0.3 K/mm3 (0.0-0.4); Eosinophils % 3.5 % (0.1-12.0); Estimated Glomerular Filt Rate 35 ml/min (>60); GFR (African American) 43 ML/MIN (>60); Globulin 3.6 g/dL (1.3-3.2); Glucose 121 mg/dl (74-100); Hematocrit 35.9 % (37.0-47.0); Hemoglobin 12.1 g/dL (12.2-16.2); Lymphocytes # 1.2 K/mm3 (0.7-4.5); Lymphocytes % 12.1 % (10-50); Mean Corpuscular HGB Conc 33.7 g/dL (31.8-35.4); Mean Corpuscular Volume 109.9 fl (81-99); Mean Platelet Volume 7.9 fl (7.4-10.4); Monocytes # 0.4 K/mm3 (0.1-1.0); Neutrophils # 7.7 K/mm3 (1.8-7.8); Neutrophils % 79.8 % (37.0-80.0); Platelet Count 112 K/mm3 (142-424); Potassium 3.6 mmoL/L (3.5-5.1); Red Blood Count 3.27 M/mm3 (4.20-5.40); Red Cell Distribution Width 17.8 % (11.5-17.5); Sodium 139 mmol/L (136-145); Total Protein,Serum 6.7 g/dl (6.3-8.2); White Blood Count 9.6 K/mm3 (4.8-10.8)
[2024-01-18 08:00] VITALS: BP 97/62; PULSE 68; RESP 18; TEMP 36.8; O2SAT 97
[2024-01-18] MEDS: MIDODRINE HCL 5 MG TABLET PO (08:13)
[2024-01-18] MEDS: INSULIN GLARGINE 100 UNITS/ML 3ML FLEXPEN 22 UNIT SQ (08:14)
--- NOTE | 2024-01-18 08:50 | PC.NURSE ---
Rounded on patient. She has no needs or concerns at this time.
[2024-01-18 09:15] VITALS: O2SAT 87
--- NOTE | 2024-01-18 10:10 | P.PN_ITS ---
Subjective *Date: 01/18/24 *Time: 11:47 Interval history: No acute respiratory vents overnight. Denies any new respiratory complaints. Pulmonology Exam Inpatient Vital signs and Labs for Last 24 Hours: Temp Pulse Resp BP Pulse Ox O2 Del Method O2 Flow Rate 98.2 F 68 18 97/62 L 87 L Room Air 3 01/18/24 08:00 01/18/24 08:00 01/18/24 08:00 01/18/24 08:00 01/18/24 09:15 01/18/24 09:15 01/18/24 08:00 FiO2 50 01/12/24 04:00 Laboratory Results - last 24 hr 01/06/24 08:22: Ur L.pneumophila Ag Negative 01/06/24 13:06: Fluid Culture Not indicated., S. pneumoniae Antigen Negative, S. pneumoniae Ag Source Urine, Organism ID Not indicated. 01/17/24 11:45: POC Glucose 182 H 01/17/24 16:33: POC Glucose 181 H 01/17/24 19:50: POC Glucose 146 H 01/18/24 06:17: POC Glucose 115 H 01/18/24 07:00: WBC 9.6, RBC 3.27 L, Hgb 12.1 L, Hct 35.9 L, MCV 109.9 H, MCH 37.0 H, MCHC 33.7, RDW 17.8 H, Plt Count 112 L, MPV 7.9, Neut % (Auto) 79.8, Lymph % (Auto) 12.1, [place] % (Auto) 4.0, Eos % (Auto) 3.5, Baso % (Auto) 0.6, Neut # (Auto) 7.7, Lymph # (Auto) 1.2, [place] # (Auto) 0.4, Eos # (Auto) 0.3, Baso # (Auto) 0.1, Sodium 139, Potassium 3.6, Chloride 105, Carbon Dioxide 35 H, Anion Gap 2.6 L, BUN 28 H, Creatinine 1.50 H, Estimated Creat Clear 65, Estimated GFR 35 L, Est GFR ( Amer) 43 L, Glucose 121 H, Calcium 8.5, Magnesium 2.0, Total Bilirubin 1.7 H, AST 74 H, ALT 98 H, Alkaline Phosphatase 64, Total Protein 6.7, Albumin 3.1 L D, Globulin 3.6 H, Albumin/Globulin Ratio 0.9 L Temp Pulse Resp BP Pulse Ox O2 Del Method O2 Flow Rate 97.8 F 65 18 118/70 96 Nasal Cannula 3 01/17/24 08:00 01/17/24 08:00 01/17/24 08:00 01/17/24 08:00 01/17/24 08:00 01/17/24 08:00 01/17/24 08:00 FiO2 50 01/12/24 04:00 Laboratory Results - last 24 hr 01/16/24 10:55: POC Glucose 179 H 01/16/24 16:19: POC Glucose 216 H 01/16/24 20:16: POC Glucose 141 H 01/17/24 05:07: POC Glucose 131 H 01/17/24 06:35: WBC 8.7 D, RBC 3.17 L, Hgb 11.4 L, Hct 34.3 L, MCV 108.3 H, MCH 36.0 H, MCHC 33.3, RDW 17.2, Plt Count 109 L, MPV 8.4, Neut % (Auto) 78.6, Lymph % (Auto) 12.2, [place] % (Auto) 5.2, Eos % (Auto) 3.5, Baso % (Auto) 0.5, Neut # (Auto) 6.9, Lymph # (Auto) 1.1, [place] # (Auto) 0.5, Eos # (Auto) 0.3, Baso # (Auto) 0.0, Sodium 139, Potassium 3.6, Chloride 105, Carbon Dioxide 34 H, Anion Gap 3.6 L, BUN 32 H, Creatinine 1.60 H, Estimated Creat Clear 61, Estimated GFR 33 L, Est GFR ( Amer) 40 L, Glucose 134 H, Calcium 8.4, Magnesium 1.9, Total Bilirubin 1.5 H, AST 86 H D, ALT 110 H, Alkaline Phosphatase 61, Total Protein 6.2 L, Albumin 2.8 L D, Globulin 3.4 H, Albumin/Globulin Ratio 0.8 L I & O for Labs for Last 24 Hours: Intake & Output 01/15/24 01/16/24 01/17/24 01/18/24 23:59 23:59 23:59 23:59 Intake Total 1020 / 1140 1260 / 1260 1180 / 1180 270 / 270 Output Total 0 / 0 0 / 0 0 / 0 0 / 0 Balance 1020 / 1140 1260 / 1260 1180 / 1180 270 / 270 Weight 217 lb 8 oz 217 lb 7.988 oz 227 lb 14.4 oz 227 lb 1.6 oz Intake & Output 01/14/24 01/15/24 01/16/24 01/17/24 23:59 23:59 23:59 23:59 Intake Total 720 / 720 1020 / 1140 1260 / 1260 240 / 240 Output Total 650 / 650 0 / 0 0 / 0 0 / 0 Balance 70 / 70 1020 / 1140 1260 / 1260 240 / 240 Weight 221 lb 12.56 oz 217 lb 8 oz 217 lb 7.988 oz 227 lb 14.4 oz Microbiology Reports for the Last 24 Hours: Microbiology 01/05/24 13:41 Sputum - Expectorated Sputum Gram Stain - Final 01/05/24 13:41 Sputum - Expectorated Sputum Sputum Culture - Preliminary 01/06/24 05:00 Sputum - Endotracheal Tube Aspirate Gram Stain - Final 01/06/24 05:00 Sputum - Endotracheal Tube Aspirate Sputum Culture - Preliminary 01/06/24 11:15 Bronchial Washings - Left Lower Lobe Gram Stain - Final 01/06/24 11:15 Bronchial Washings - Left Lower Lobe Bronchoalveolar Lavage Culture - Final Constitutional: Present mild distress Head: Present normocephalic and atraumatic ENT: Present normal exam, normal oropharynx and mucous membranes moist Neck: Present normal inspection and full ROM Respiratory: Present able to speak in complete sentences; Absent rhonchi or wheezes Cardiac: Present S1/S2, Tachycardia and radial pulses present GI: Present soft and distention; Absent tenderness or guarding Rectal (female): Present deferred (female): Present deferred Skin: Present intact; Absent cyanosis or jaundice Neuro: Present alert, awake and oriented x 3 Extremities: Present normal inspection; Absent clubbing or cyanosis Psychiatric: Present normal affect and cooperative Assessment and Plan *Assessment and plan (1) Acute hypoxic respiratory failure: Status: Acute Category: Medical Code(s): J96.01 - Acute respiratory failure with hypoxia (2) Pneumonia: Status: Acute Category: Medical Code(s): J18.9 - Pneumonia, unspecified organism Plan Ms. Yi is a 58-year-old female greater than 14-mesa-tnmg smoking history and carries a diagnosis of COPD baseline using albuterol/nebulizers presented to the ER for worsening chest pain and shortness of breath and pulmonary was called for further evaluation and management. Chest x-ray upon admission bilateral lower lobe airspace disease, left greater than right. Interstitial thickening is also noted, likely a combination of airspace disease and volume overload. Neutrophilic leukocytosis upon admission. Serum ammonia also elevated upon admission. Patient admission was initiated on BiPAP therapy. No blood gas available. On initial examination patient is awake responding to verbal commands. Weaned from BiPAP to high flow nasal cannula. Wheezing on auscutation. CTA personally reviewed, no evidence of pulmonary embolism bilateral lower lobe dense consolidative changes left greater than right. Small effusions also noted. Significant emphysematous changes also noted. Calcified lymphadenopathy noted. Patient experienced significant respiratory distress overnight on 01/05/2024 needing intubation and mechanical ventilatory support. SPENCER screen negative. BAL eosinophil count 0. Nasal MRSA PCR negative. Improvement in status s/p extubation on 01/10/2024. Tolerating nasal cannula well since then. Completed 7-day course of Zosyn and 5-day course of azithromycin. Urine strep and Legionella resulted negative. Interval update: No acute respiratory events over the weekend. Stable oxygen requirements at 3L [place]. Plan: Continue nasal oxygen supplementation to maintain O2 saturation goal of 90% and above. Trelegy 100 inhaler along with DuoNebs every 6 hours on as-needed basis Aspiration precautions PT OT # Thank you for involving pulmonary in this patient care. Will follow the patient in pulmonary clinic 2 weeks post discharge.
--- NOTE | 2024-01-18 11:32 | HMH.PTWOUND ---
Rehab Inpt Wound Evaluation Rehab IP Wound Evaluation Start: 01/17/24 11:12 Freq: ONCE Status: Active Protocol: Document 01/18/24 11:27 PHOYANNICK (Rec: 01/18/24 11:32 PHORJAROCHO [id number]) Rehab PT Wound Assessment Subjective Subjective 58 yowf adm to [facility] with NSTEMI and COPD exac. SHe is returning home now after a prolonged hospital stay and will receive Home Health services. She has developed blisters to her R forearm during her stay, but they appear to be healing appropriately and not currently open or draining. Wound Right Forearm Wound Type Blister Is This a Chronic Wound Yes Wound Length (cm) 18.0 Wound Width (cm) 7.0 Wound Margins Description Well Defined Surrounding Tissue Appearance [place],Bright Red,Purple Primary Dressing Non-Adherent Gauze Pad Wound Secondary Dressing Type Gauze Roll/Wrap Dressing Change Patient Tolerance Tolerated Well Plan/Recommendation Comment R forearm blisters appear to have decreasing fluid currently in them, but no open areas noted and no weeping. Blisters covered for protection to prevent blister opening early and to reduce the risks of infection. Home Health to follow as needed. Eval Complexity Eval Charge Codes 51025 - High Complexity PHYSICIAN CERTIFICATION: I certify the specified therapy services for Aylin Richmond are required, authorized, and reviewed every 30 days.
--- NOTE | 2024-01-18 13:09 | HMH.PHAINT1 ---
Pharmacy Intervention Comments: DISCHARGE MEDICATION COUNSELING WAS PROVIDED ON THE FOLLOWING MEDICATIONS: DOCUSATE, TRELEGY, FUROSEMIDE, LANTUS SOLOSTAR, MIDODRINE, AND NICOTINE PATCHES. INDICATIONS, APPLICATIONS, AND POSSIBLE SIDE EFFECTS WERE DISCUSSED. ANSWERED ALL PATIENT'S QUESTIONS AND THEY VERBALIZED UNDERSTANDING.
--- NOTE | 2024-01-19 14:39 | CARE MANAGER ---
Unable to reach patient via phone to discuss recent discharge. Call attempted x 2.
== END 2024-01-18 12:50 | disposition home health service (06) | DRG 870 ==
PROVIDERS: Internal Medicine; Internal Medicine Pulmonary Disease; Nurse Practitioner Family; Admitting Provider Internal Medicine Adolescent Medicine; PCP Family Medicine; Visit Provider Internal Medicine Adolescent Medicine
PROC: 5A1955Z Respiratory Ventilation, Greater than 96 Consecutive Hours (ICD-10-PCS; principal; 2024-01-06 10:30)
DX: A41.9 Sepsis, unspecified organism (principal); J80 Acute respiratory distress syndrome; J18.9 Pneumonia, unspecified organism; I21.4 Non-ST elevation (NSTEMI) myocardial infarction; R65.21 Severe sepsis with septic shock; N17.9 Acute kidney failure, unspecified; J44.0 Chronic obstructive pulmonary disease with (acute) lower respiratory infection; I50.32 Chronic diastolic (congestive) heart failure; K74.60 Unspecified cirrhosis of liver; E83.119 Hemochromatosis, unspecified; Z85.21 Personal history of malignant neoplasm of larynx; E11.65 Type 2 diabetes mellitus with hyperglycemia; F17.200 Nicotine dependence, unspecified, uncomplicated; Z71.6 Tobacco abuse counseling; D69.6 Thrombocytopenia, unspecified; I11.0 Hypertensive heart disease with heart failure
CPT/HCPCS: 31500; 94002; 36415; 71045; 71275; 74018; 80048; 80053; 81001; 81256; 82140; 82570; 82728; 82803; 82962; 83036; 83540; 83550; 83605; 83690; 83735; 83880; 84100; 84145; 84484; 84540; 85007; 85025; 85378; 85384; 85610; 85730; 86038; 86140; 86682; 87070; 87081; 87205; 87636; 87899; 88112; 88305; 89051; 92526; 92610; 93005; 93306; 93308; 94003; 94640; 94660; 94761; 97110; 97116; 97162; 97166; 97530; 97535; 99152; J0456; J0574; J1956; J2543; J2704; Q9967